=== PATIENT | male | born 1950 | race Caucasian/White ===

== ENCOUNTER 2023-02-16 09:10 | Outpatient (OUT) | payer MEDICARE, OTHER, SELFPAY ==
[2023-02-16 10:03] LABS: Basophils Percent Auto 0.4 % (0.2-2.0); Eosinophils Percent Auto 0.4 % (0.9-7.0); Hematocrit 43.5 % (42.0-54.0); Hemoglobin 13.9 g/dL (14.0-18.0); Immature Granulocytes Abs Auto 0.01 10^3/uL (0.00-0.03); Immature Granulocytes Pct Auto 0.2 % (0.0-0.5); Lymphocytes Absolute Auto 0.9 10^3/uL (1.2-3.8); Lymphocytes Percent Auto 20.4 % (20.5-60.0); Mean Corpuscular Hemoglobin 29.6 pg (25.9-34.0); Mean Corpuscular Volume 92.6 fL (80.0-94.0); Mean Platelet Volume 10.5 fL (9.5-13.5); Monocytes Absolute Auto 0.4 10^3/uL (0.3-0.8); Neutrophils Absolute Auto 3.2 10^3/uL (1.4-6.5); Neutrophils Percent Auto 70.6 % (43.0-75.0); Platelet Count 182 10^3/uL (150-450); White Blood Count 4.5 10^3/uL (4.0-11.0)
[2023-02-16 10:43] LABS: Anion Gap 11.6; Aspartate Amino Transferase 16 U/L (15-37); BUN Creatinine Ratio 22.4; Bilirubin Total 0.7 mg/dL (0.2-1.0); Calcium 8.7 mg/dL (8.5-10.1); Carbon Dioxide 28.7 mmol/L (21.0-32.0); Chloride 105 mmol/L (98-107); Estimated GFR (African America >60 (>=60); Estimated GFR (Non-African Ame >60 (>=60); Glucose 115 mg/dL (74-106); Potassium 4.3 mmol/L (3.5-5.1); Sodium 141 mmol/L (136-145)
[2023-02-16 10:44] LABS: Alanine Aminotransferase 18 U/L (16-63); Albumin Globulin Ratio 0.9; Albumin Level 3.5 g/dL (3.4-5.0); Alkaline Phosphatase 74 U/L (46-116); Chol HDL Ratio 2.8; Cholesterol 161 mg/dL (<=200); HDL Cholesterol 58 mg/dL (40-60); Total Protein 7.5 g/dL (6.4-8.2); Triglycerides 64 mg/dL (<=150); VLDL CHOLESTEROL 12.8 mg/dL
[2023-02-16 10:47] LABS: Prostate Specific Antigen Scrn 2.03 ng/mL (<=4.00)
== END 2023-02-16 09:11 | disposition home or self-care (01) ==
PROVIDERS: PCP Family Medicine; Visit Provider Family Medicine
DX: E78.00 Pure hypercholesterolemia, unspecified (principal); I10 Essential (primary) hypertension; Z12.5 Encounter for screening for malignant neoplasm of prostate
CPT/HCPCS: 36415; 80053; 80061; 85025; G0103

== ENCOUNTER 2023-03-24 13:52 | Outpatient (RCR) | payer MEDICARE, OTHER, SELFPAY | END 2023-06-13 13:24 | disposition home or self-care (01) | LOC: PT 13:52 | PROVIDERS: PCP Family Medicine; Visit Provider Family Medicine | DX: S49.92XD Unspecified injury of left shoulder and upper arm, subsequent encounter (principal) | CPT/HCPCS: 97010; 97110; 97140; 97162 ==

== ENCOUNTER 2023-03-24 15:15 | Outpatient (OUT) | payer MEDICARE, OTHER, SELFPAY ==
--- NOTE | 2023-03-24 15:21 | XR_ITS ---
The [address] [address] Patient Name: SERJIO AMARO MRN: [id number] date: 1950 Sex: M Assigned Patient Location: [facility] Current Patient Location: Accession/Order Number: [id number] Exam Date: 03/24/2023 15:27 Report Date: 03/25/2023 08:39 At the request of: DONN CORMIER Procedure: XR shoulder LT min 2V PROCEDURE: XR shoulder LT min 2V COMPARISON: None. HISTORY: Unspecified Injury Of Left Shoulder S49.92XA FINDINGS: BONES:Slight contour deformity of the medial humeral head with a focal area of sclerosis. I favor degenerative change however a fracture is not excluded. No dislocation. Degenerative spondylosis of the spine. SOFT TISSUES:Negative. No visible soft tissue swelling. EFFUSION:None visible. OTHER: Negative. XR/XR shoulder LT min 2V IMPRESSION: Findings likely representing degenerative changes although a humeral head fracture is not excluded Electronically authenticated by: ANGELIQUE CARABALLO Date: 03/25/2023 08:39
== END 2023-03-24 15:16 | disposition home or self-care (01) ==
LOC: RAD 15:16
PROVIDERS: PCP Family Medicine; Visit Provider Family Medicine
DX: S49.92XA Unspecified injury of left shoulder and upper arm, initial encounter (principal)
CPT/HCPCS: 73030

== ENCOUNTER 2023-04-10 09:50 | Outpatient (OUT) | payer MEDICARE, OTHER, SELFPAY ==
--- OUTSIDE RECORDS SUMMARY | 2023-04-10 09:54 | XMS_ITS | CCD ---
Author Name Unknown Address [id number] [place] [address] Organization [facility] Care Team Providers Care Supervisor Knitting Name Role Phone DEBBIE, SUMMON Unavailable Unavailable DEBBIE, SUMMON Unavailable Unavailable LIZ CORMIER Unavailable Unavailable LIZ CORMIER Unavailable Unavailable Felipe Hancock Attending Provider Liz Cormier Primary Care Provider Lula De La O Unavailable Liz Cormier Unavailable DR LIZ CORMIER Admitting Unavailable CORMIER, DR LIZ Doty Attending Unavailable CASA, DR LIZ Doty Primary Care Unavailable CORMIER, DR LIZ Doty Consulting Unavailable CORMIER, DR LIZ Doty Primary Care Unavailable CORMIER, DR LIZ Doty Primary Care Unavailable HOY ., DR ZIMMERMAN Admitting Unavailable HOY ., DR ZIMMERMAN Attending Unavailable HOY ., DR ZIMMERMAN Consulting Unavailable MARKER ., DR RAMACHANDRAN Consulting Unavailable GODWIN, ALFREDO Consulting Unavailable SISTER, TEJA Consulting Unavailable FAVIAN, DR CALDWELL Admitting Unavailable FAVIAN, DR CALDWELL Attending Unavailable CASA, DR LIZ Doty Primary Care Unavailable FAVIAN, DR CALDWELL Consulting Unavailable MISC, DR CUNNINGHAM Admitting Unavailable MISC, DR CUNNINGHAM Attending Unavailable CASA, DR LIZ Doty Primary Care Unavailable MARSHALLVILLE, DR ANGELIQUE Tabares Consulting Unavailable MISC, DR CUNNINGHAM Consulting Unavailable CASA, DR LIZ Doty Consulting Unavailable JORDON HERNANDEZ Attending Unavailable MADIE ZUNIGA Attending Unavailable MD Liz Cormier Primary Care Provider [phone] DO Francisco Javier Camacho Attending Provider [phone] Francisco Javier Camacho Unavailable Liz Cormier Primary Care Unavailable Francisco Javier Camacho Attending Unavailable Francisco Javier Camacho Admitting Unavailable Unavailable Unavailable Unavailable Allergies Allergy Classification Reported Allergen(s) Allergy Type Date of Onset Reaction(s) Facility (1 source) 28749,00; Translations: [57739,00] Propensity to adverse reactions (disorder) 9 [facility] Repository (6 sources) patient allergy list reviewed by nurse or physicia Propensity to adverse reactions 7 Comment:Done [facility] Other (6 sources) Allergies Reconciled Propensity to adverse reactions Unknown [facility] Other Medications Current Medications Medication Drug Class(es) Dates Sig (Normalized) Sig (Original) aspirin 81 mg delayed release oral tablet (14 sources) Platelet Aggregation Inhibitor, Nonsteroidal Anti-inflammatory Drug Start: 03-28-2020 take 81 mg by mouth twice daily Aspirin Active 81 MG PO Twice daily March 28, 2020 12:00am Start: 03-12-2020 take 81 mg by mouth once daily Aspirin Active 81 MG PO Daily March 12, 2020 12:14pm take 1 tablet by mouth once rahul y Aspirin 81 81 MG 1 tablet Orally Once a day Active take 1 tablet by mouth once rahul y Aspirin 81 81 MG 1 tablet Orally Once a day Active levoFLOXacin 750 mg oral tablet (2 sources) Quinolone Antimicrobial take 1 tablet by mouth every twenty-four hours levoFLOXacin 750 MG 1 tablet Orally Once a day Active lisinopril 10 mg oral tablet (13 sources) Angiotensin Converting Enzyme Inhibitor Start: 020 take 10 mg by mouth once daily Lisinopril Active 10 MG PO Daily March 12, 2020 12:14pm take 1 tablet by hannah th every twenty-four hours Lisinopril 20 MG 1 tablet Orally Once a day Active lovastatin 40 mg oral tablet (13 sources) HMG-CoA Reductase Inhibitor Start: 03-12-2020 take 40 mg by mouth once daily at bedtime Lovastatin Active 40 MG PO Daily at bedtime March 12, 2020 12:14pm take 2 tablets by mouth once evelio ly Lovastatin 40 MG 2 tab Oral Once a day Active 24 hr metoprolol succinate 25 mg extended release oral tablet (13 sources) beta-Adrenergic Kirk Start: 03-12-2020 take 12.5 mg by mouth twice daily Metoprolol Succinate Active 12.5 MG PO Twice daily March 12, 2020 12:14pm take 0.5 tablet by mouth twice d aily Metoprolol Tartrate 25 MG 1/2 tab Oral Twice a day Active Metoprolol Tartr ate 25 MG TAKE 1 2 (ONE HALF) TABLET BY MOUTH TWICE DAILY Oral for 90 Active nitroglycerin 0.4 mg sublingual tablet (3 sources) Nitrate Vasodilator Start: 03-12-2020 Nitroglyce rin Active 0.4 MG SUBLINGUAL Q5M March 12, 2020 12:14pm Problems Active Problems Problem Classification Problem Date Documented Da te Episodic/Chronic Acute and unspecified renal failure (2 sources) Acute kidney failure, unspecified; Translations: [ACUTE KIDNEY FAILURE UNSPECIFIED] Onset: 07-17-2022 Episodic Bacterial infection; unspecified site (2 sources) Unspecified Escherichia coli [E. coli] as the cause of diseases classified elsewhere; Translations: [UNS E COLI CAUSE DX CLASS ELSEWHERE] Onset: 07-17-2022 Episodic Cardiac dysrhythmias (6 sources) Cardiac arrhythmia; Translations: [Cardiac arrhythmia, unspecified] Onset: 09-04-2014 Chronic Coronary atherosclerosis and other heart disease (20 sources) Coronary arteriosclerosis; Translations: [Atherosclerotic heart disease of tanana coronary artery without angina pectoris] Onset: 06-21-2013 Chronic Deficiency and other anemia (1 source) Iron deficiency anemia, unspecified; Translations: [IRON DEFICIENCY ANEMIA UNSPECIFIED] Onset: 07-16-2022 Episodic Disorders of lipid metabolism (20 sources) Hypercholesterolemia ; Translations: [Pure hypercholesterolemia , unspecified] Onset: 06-27-2013 Resolved: 02-04-2021 Chronic Essential hypertension (20 sources) Essential hypertension; Translations: [Essential (primary) hypertension] Onset: 05-22-2014 Chronic Fracture of upper limb (1 source) Other displaced fracture of upper end of left humerus, initial encounter for closed fracture Episodic Hyperplasia of prostate (15 sources) Lower urinary tract symptoms due to benign prostatic hypertrophy; Translations: [Benign prostatic hyperplasia with lower urinary tract symptoms] Chronic Osteoarthritis (11 sources) Osteoarthritis of right hip joint; Translations: [Unilateral primary osteoarthritis, right hip] Onset: 03-05-2021 Resolved: 03-05-2021 Chronic Osteoporosis (1 source) Age-related osteoporosis without current pathological fracture; Translations: [AGE-RELATED OSTEOPOROSIS W/O CURRENT PATHOLOGICAL FRACTURE] Onset: 01-26-2017 Chronic Other aftercare (4 sources) Aftercare following joint replacement surgery; Translations: [AFTERCARE FOLLOWING JOINT REPLACEMENT SURGERY] Onset: 01-26-2017 Chronic Other aftercare (1 source) intermediate designer (current) use of aspirin; Translations: [LONG-TERM CURRENT USE OF ASPIRIN] Onset: 07-16-2022 Episodic Other aftercare (1 source) Other 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 (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; Translations: [OTH SUPERINTENDENT RECREATION CURRENT DRUG THERAPY] Onset: 07-16-2022 Episodic Other aftercare (6 sources) Long-term current use of drug therapy; Translations: [Other jail (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] Episodic Other and ill-defined heart disease (4 sources) Heart disease, unspecified; Translations: [HEART DISEASE UNSPECIFIED] Onset: 03-18-2022 Chronic Other connective tissue disease (2 sources) Presence of right artificial hip joint; Translations: [PRESENCE OF RIGHT ARTIFICIAL HIP JOINT] Onset: 01-26-2017 Resolved: 03-05-2021 Chronic Other connective tissue disease (10 sources) History of total replacement of right hip joint; Translations: [Presence of right artificial hip joint] Chronic Other connective tissue disease (1 source) History of total hip arthroplasty; Translations: [Presence of right artificial hip joint] 03-04-2023 Chronic Other injuries and conditions due to external causes (6 sources) History of fall; Translations: [History of falling] Episodic Other injuries and conditions due to external causes (1 source) Unspecified injury of left shoulder and upper arm, initial encounter Episodic Other non-traumatic joint disorders (2 sources) Derangement of left shoulder joint; Translations: [Other specific joint derangements of left shoulder, not elsewhere classified] Chronic Other non-traumatic joint disorders (1 source) Other specific joint derangements of left shoulder, not elsewhere classified Chronic Other non-traumatic joint disorders (6 sources) Pain in right hip joint; Translations: [Pain in right hip] Episodic Other non-traumatic joint disorders (1 source) Pain in left shoulder Episodic Other nutritional; endocrine; and metabolic disorders (6 sources) Obesity; Translations: [Obesity, unspecified] Chronic Other nutritional; endocrine; and metabolic disorders (12 sources) Body mass index 30+ - obesity; Translations: [Body mass index 31.0-31.9, adult] Onset: 01-10-2018 Chronic Other nutritional; endocrine; and metabolic disorders (6 sources) Severe obesity; Translations: [Morbid (severe) obesity due to excess calories] Chronic Residual codes; unclassified (6 sources) Immunization refused ; Translations: [Immunization not carried out because of patient refusal] Episodic Septicemia (except in labor) (4 sources) Sepsis, unspecified organism; Translations: [Sepsis due to Escherichia coli [E. coli]] Onset: 06-27-2022 Episodic Sprains and strains (1 source) Strain of muscle(s) and tendon(s) of the rotator cuff of left shoulder, initial encounter Episodic Unclassified (2 sources) Unknown / UNK(Unknown) Onset: 01-26-2017 Unclassified (1 source) CONTACT W/AND (SUSP) EXPOS COVID-19; Translations: [CONTACT W/AND (SUSP) EXPOS COVID-19] Onset: 07-16-2022 Unclassified (1 source) Pain in left shoulder; Translations: [Pain in left shoulder] Onset: 04-06-2023 Urinary tract infections (12 sources) Tubulo-interstitial nephritis, not specified as acute or chronic; Translations: [Acute pyelonephritis] Onset: 07-11-2022 Episodic Past or Other Problems Problem Classification Problem Date Documented Da te Episodic/Chronic Deficiency and other anemia (6 sources) Anemia; Translations: [Anemia, unspecified] Resolved: 08-05-2021 Episodic Genitourinary symptoms and ill-defined conditions (6 sources) Disorder of the urinary system; Translations: [Personal history of other disorder of urinary system] Onset: 08-23-2015 Episodic Immunizations and screening for infectious disease (6 sources) Vaccination given; Translations: [Encounter for immunization] Onset: 01-06-2017 Episodic Other circulatory disease (6 sources) Elevated blood-pressure reading without diagnosis of hypertension; Translations: [Elevated blood-pressure reading, without diagnosis of hypertension] Onset: 05-22-2014 Episodic Other connective tissue disease (6 sources) Impingement syndrome of shoulder region; Translations: [Impingement syndrome of right shoulder] Onset: 09-04-2014 Resolved: 02-04-2021 Episodic Other eye disorders (6 sources) Retained foreign body of eyelid; Translations: [Retained foreign body of eyelid] Onset: 01-30-2015 Episodic Other fractures (1 source) Displaced fracture of shaft of right clavicle, subsequent encounter for fracture with routine healing; Translations: [DISP FX OF SHAFT OF RIGHT CLAVICLE, SUBS FOR FX W ROUTN HEAL] Onset: 01-26-2017 Episodic Other lower respiratory disease (1 source) Other forms of dyspnea; Translations: [OTHER FORMS OF DYSPNEA] Onset: 03-21-2022 Episodic Other non-traumatic joint disorders (6 sources) Arthralgia of the pelvic region and thigh; Translations: [Pain in joint, pelvic region and thigh] Onset: 09-04-2014 Episodic Other screening for suspected conditions (not mental disorders or infectious disease) (1 source) Encounter for screening for malignant neoplasm of prostate; Translations: [ENC SCREEN MALIG NEOPLASM PROSTATE] Onset: 02-17-2022 Episodic Other upper respiratory infections (6 sources) Acute sinusitis; Translations: [Acute sinusitis, unspecified] Onset: 11-08-2014 Episodic Residual codes; unclassified (6 sources) Edema; Translations: [Edema] Onset: 02-19-2016 Episodic Results Test Name Value Interpretation Reference Range Facility XR shoulder LT min 2V*on XR shoulder LT min 2V* [facility] [place] [address] [place] [address] XRay Report Signed Patient: Bonifacio Amaro MR#: [id number] : 1950 Acct:[id number] Age/Sex: 72 / M ADM Date: 04/06/23 Loc: [facility] Room: Type: [facility] Attending Dr: Francisco Javier Camacho DO Copies to: Francisco Javier Camacho DO Ordering Provider: Francisco Javier Camacho DO Date of Service: 04/06/23 XR/XR shoulder LT min 2V*: Acute pain of left shoulder 4 views LEFT shoulder plain film HISTORY: LEFT shoulder pain for one week. Fell. COMPARISON: 03/24/23 ACUTE FINDINGS: At there is a developing regions of sclerosis involving the greater tuberosity. Findings may represent the old fracture which is healed. Minor glenohumeral degenerative changes present. There appears be a well-corticated intra-articular body versus spurring in the region of the posterior portion of the humeral head and neck. This measures approximately 2.3 cm. This appears to be present with prior examination. DEGENERATIVE CHANGE: Similar mild degeneration of the acromioclavicular joint. SOFT TISSUE FINDINGS: Unremarkable JOINT EFFUSION: None POSTOP CHANGES: None BONY MINERALIZATION: Adequate XR/XR shoulder LT min 2V* IMPRESSION: No acute fracture. Sclerosis within the region of the greater tuberosity. Findings may correspond with bony contusion/fracture with interval healing. Similar acromioclavicular degenerative changes. Impression dictated by: Baljit Zavala M.D.04/06/2023 2:15 PM Dictation Location: [place] [address] Transcribed By: [facility] 04/06/23 1415 Dictated By: Baljit Zavala DO 04/06/23 1405 Signed By: 04/06/23 1415 Normal [facility] Office Visiton 03-30-2023 Follow-up visit [id number] Mendez Amaro in E 1950 M Date Provider Department Center 03/30/2023 MADIE GLORIA [facility] Family History Problem Relation Age of Onset Heart attack Father Family Status - Relation Status Age at Father Level of Service:26871 MT OFFICE/OUTPATIENT ESTABLISHED LOW MDM 20 MIN Normal [facility] CBC AUTO DIFFon 07-11-2022 BASO # 0.0 103/ul Normal 0.0-0.1 [facility] Comment on above: Performed By: #### R SPLUS #### [facility] [address] [place] [address] Dr. Tomasz Patel Basophils/100 WBC (Bld) 0.6 % Normal 0.2-2.0 [facility] Comment on above: Performed By: #### R SPLUS #### [facility] [address] [place] [address] [address] Tomasz Patel EO # 0.0 103/ul Normal 0.0-0.7 [facility] Comment on above: Performed By: #### R SPLUS #### [facility] [address] [address] [address] Tomasz Patel Eosinophils/100 WBC (Bld) 0.6 % Critically low 0.9-7.0 [facility] Comment on above: Performed By: #### R SPLUS #### [facility] [address] [place] [address] Dr. Tomasz Patel Erythrocyte distribution width (RBC) [Ratio] 13.6 % Normal 11.0-15.0 [facility] Comment on above: Performed By: #### R SPLUS #### [facility] [address] [place] [address] Dr. Tomasz Patel Hematocrit (Bld) [Volume fraction] 44.5 % Normal 42.0-54.0 [facility] Comment on above: Performed By: #### R SPLUS #### [facility] [address] [place] [address] Dr. Tomasz Patel Hemoglobin (Bld) [Mass/Vol] 14.7 g/dL Normal 14.0-18.0 [facility] Comment on above: Performed By: #### R SPLUS #### [facility] [address] [place] [address] Dr. Tomasz Patel IG # 0.03 10e3/ul Normal 0.00-0.03 [facility] Comment on above: Performed By: #### R SPLUS #### [facility] [address] [place] [address] Dr. Tomasz Patel IG % 0.6 % Critically high 0.0-0.5 [facility] Comment on above: Performed By: #### R SPLUS #### [facility] [address] [place] [address] Dr. Tomasz Patel LYMPH # 1.1 103/ul Critically low 1.2-3.8 [facility] Comment on above: Performed By: #### R SPLUS #### [facility] [address] [place] [address] Dr. Tomasz Patel Lymphocytes/100 WBC (Bld) 21.1 % Normal 20.5-60.0 [facility] Comment on above: Performed By: #### R SPLUS #### [facility] [address] [place] [address] Dr. Tomasz Patel MANUAL DIFF REQ NO Normal [facility] Comment on above: Performed By: #### R SPLUS #### [facility] [address] [place] [address] Dr. Tomasz Patel MCH (RBC) [Entitic mass] 28.7 pg Normal 25.9-34.0 [facility] Comment on above: Performed By: #### R SPLUS #### [facility] [address] [place] [address] Dr. Tomasz Patel MCHC (RBC) [Mass/Vol] 33.0 g/dL Normal 29.9-35.2 [facility] Comment on above: Performed By: #### R SPLUS #### [facility] [address] [place] [address] Dr. Tomasz Patel MCV (RBC) [Entitic vol] 86.7 fL Normal 80.0-94.0 [facility] Comment on above: Performed By: #### R SPLUS #### [facility] [address] [place] [address] Dr. Tomasz Patel MONO # 0.5 103/ul Normal 0.3-0.8 [facility] Comment on above: Performed By: #### R SPLUS #### [facility] [address] [place] [address] Dr. Tomasz Patel Monocytes/100 WBC (Bld) 10.5 % Normal 1.7-12.0 [facility] Comment on above: Performed By: #### R SPLUS #### [facility] [address] [place] [address] Dr. Tomasz Patel NEUT # 3.4 103/ul Normal 1.4-6.5 [facility] Comment on above: Performed By: #### R SPLUS #### [facility] [address] [place] [address] Dr. Tomasz Patel Neutrophils/100 WBC (Bld) 66.6 % Normal 43.0-75.0 [facility] Comment on above: Performed By: #### R SPLUS #### [facility] [address] [place] [address] Dr. Tomasz Patel Platelet mean volume (Bld) [Entitic vol] 10.4 fL Normal 9.5-13.5 [facility] Comment on above: Performed By: #### R SPLUS #### [facility] [address] [place] [address] Dr. Tomasz Patel PLT 174 103/ul Normal 150-450 [facility] Comment on above: Performed By: #### R SPLUS #### [facility] [address] [place] [address] Dr. Tomasz Patel RBC 5.13 106/ul Normal 4.70-6.10 [facility] Comment on above: Performed By: #### R SPLUS #### [facility] [address] [place] [address] Dr. Tomasz Patel WBC 5.1 103/ul Normal 4.0-11.0 [facility] Comment on above: Performed By: #### R SPLUS #### [facility] [address] [place] [address] Dr. Tomasz Patel CULTURE URINEon 07-11-2022 CULTURE URINE Culture Observations : NO GROWTH. Normal [facility] Comment on above: Performed By: #### C MP, BNP, HSTROPN #### [facility] [address] [place] [address] Dr. Tomasz Patel PROF CHEM 8 (BAS METB)on Anion gap [Moles/Vol] 12.8 mmol/L Normal [facility] Comment on above: Performed By: #### B MP #### [facility] [address] [place] [address] Dr. Tomasz Patel Calcium [Mass/Vol] 8.9 mg/dL Normal 8.5-10.1 [facility] Comment on above: Performed By: #### B MP #### [facility] [address] [place] [address] Dr. Tomasz Patel Chloride [Moles/Vol] 104 mmol/L Normal 98-107 [facility] Comment on above: Performed By: #### B MP #### [facility] [address] [place] [address] Dr. Tomasz Patel CO2 [Moles/Vol] 23.6 mmol/L Normal 21.0-32.0 [facility] Comment on above: Performed By: #### B MP #### [facility] [address] [place] [address] Dr. Tomasz Patel Creatinine [Mass/Vol] 0.95 mg/dL Normal 0.70-1.30 [facility] Comment on above: Performed By: #### B MP #### [facility] [address] [place] [address] [address] Tomasz Patel EGFR-AF ICELANDIC >60 Normal >=60 [facility] Comment on above: Performed By: #### B MP #### [facility] [address] [address] [address] Tomasz Patel EGFR-NON AF ICELANDIC >60 Normal >=60 [facility] Comment on above: Performed By: #### B MP #### [facility] [address] [address] [address] Tomasz Patel Glucose [Mass/Vol] 146 mg/dL Critically high 74-106 [facility] Comment on above: Performed By: #### B MP #### [facility] [address] [place] [address] Dr. Tomasz Patel Potassium [Moles/Vol] 4.4 mmol/L Normal 3.5-5.1 [facility] Comment on above: Performed By: #### B MP #### [facility] [address] [address] [address] Tomasz Patel Sodium [Moles/Vol] 136 mmol/L Normal 136-145 [facility] Comment on above: Performed By: #### B MP #### [facility] [address] [address] [address] Tomasz Patel Urea nitrogen [Mass/Vol] 24.0 mg/dL Critically high 7.0-18.0 [facility] Comment on above: Performed By: #### B MP #### [facility] [address] [address] [address] Tomasz Patel Urea nitrogen/Creatinine [Mass ratio] 25.3 mg/mg Normal [facility] Comment on above: Performed By: #### B MP #### [facility] [id number] Tomasz Patel CULTURE URINEon 06-29-2022 CULTURE URINE Isolate 1 Escherichia coli >100,000 cfu/mL of ORGANISM 1 Escherichia coli ANTIBIOTIC M.I.C RX STATUS Ampicillin <=2 S F Ampicillin/Sulbactam <=2 S F Piperacillin/Tazobacta m <=4 S F Cefazolin <=4 S F Ceftazidime <=1 S F Ceftriaxone <=1 S F Ertapenem <=0.5 S F Imipenem <=0.25 S F Amikacin <=2 S F Gentamicin <=1 S F Tobramycin <=1 S F Ciprofloxacin <=0.25 S F Levofloxacin <=0.12 S F Nitrofurantoin <=16 S F Trimethoprim/Sulfameth oxazole <=20 S F Normal [facility] Comment on above: Performed By: #### C MP, BNP, HSTROPN #### [facility] [address] [place] [address] Dr. Tomasz Patel CBC W MANUAL DIFFon 06-29-19 23 ATYPICAL LYMPH # 0.12 103/ul Normal [facility] Comment on above: Performed By: #### C EMERITA #### [facility] [address] [place] [address] Dr. Tomasz Patel ATYPICAL LYMPH % 3 % Normal [facility] Comment on above: Performed By: #### C EMERITA #### [facility] [address] [place] [address] Dr. Tomasz Patel BAND # 0.0 103/ul Normal 0.0-0.3 [facility] Comment on above: Performed By: #### C EMERITA #### [facility] [address] [place] [address] Dr. Tomasz Patel BAND % 0 % Normal 0-5 [facility] Comment on above: Performed By: #### C EMERITA #### [facility] [address] [place] [address] Dr. Tomasz Patel BASOM # 0.04 103/ul Normal 0.00-0.10 [facility] Comment on above: Performed By: #### C EMERITA #### [facility] [address] [place] [address] Dr. Tomasz Patel BASOM % 1.0 % Normal 0.2-2.0 [facility] Comment on above: Performed By: #### C BCJUAN RAMON #### [facility] [address] [address] [address] Tomasz Patel BLAST # Normal [facility] Comment on above: Performed By: #### C EMERITA #### [facility] [address] [address] [address] Tomasz Patel BLAST % Normal [facility] Comment on above: Performed By: #### C EMERITA #### [facility] [address] [address] [address] Tomasz Patel CORRECTED WBC Normal 4.0-11.0 [facility] Comment on above: Performed By: #### C EMERITA #### [facility] [address] [place] [address] Dr. Tomasz Patel EOS # 0.04 103/ul Normal 0.00-0.70 [facility] Comment on above: Performed By: #### C EMERITA #### [facility] [address] [place] [address] Dr. Tomasz Patel EOS% 1.0 % Normal 0.9-7.0 [facility] Comment on above: Performed By: #### C EMERITA #### [facility] [address] [place] [address] Dr. Tomasz Patel HCT 38.5 % Critically low 42.0-54.0 [facility] Comment on above: Performed By: #### C EMERITA #### [facility] [address] [place] [address] Dr. Tomasz Patel HGB 12.7 g/dl Critically low 14.0-18.0 [facility] Comment on above: Performed By: #### C BCJUAN RAMON #### [facility] [address] [address] [address] Tomasz Patel LYMPHM # 0.40 103/ul Critically low 1.20-3.80 [facility] Comment on above: Performed By: #### C EMERITA #### [facility] [address] [place] [address] Dr. Tomasz Patel LYMPHM% 10.0 % Critically low 20.5-60.0 [facility] Comment on above: Performed By: #### C EMERITA #### [facility] [address] [place] [address] Dr. Tomasz Patel MCH 29.3 pg Normal 25.9-34.0 [facility] Comment on above: Performed By: #### C EMERITA #### [facility] [address] [place] [address] Dr. Tomasz Patel MCHC 33.0 g/dl Normal 29.9-35.2 [facility] Comment on above: Performed By: #### C EMERITA #### [facility] [address] [place] [address] Dr. Tomasz Patel MCV 88.7 fL Normal 80.0-94.0 [facility] Comment on above: Performed By: #### C EMERITA #### [facility] [address] [place] [address] Dr. Tomasz Patel METAMYELOCYTE # Normal [facility] Comment on above: Performed By: #### C EMERITA #### [facility] [address] [place] [address] Dr. Tomasz Patel METAMYELOCYTE % Normal [facility] Comment on above: Performed By: #### C EMERITA #### [facility] [address] [place] [address] Dr. Tomasz Patel MONOM# 0.20 103/ul Critically low 0.30-0.80 [facility] Comment on above: Performed By: #### C EMERITA #### [facility] [address] [place] [address] Dr. Tomasz Patel MONOM% 5.0 % Normal 1.7-12.0 [facility] Comment on above: Performed By: #### C EMERITA #### [facility] [address] [place] [address] Dr. Tomasz Patel MPV 10.8 fL Normal 9.5-13.5 [facility] Comment on above: Performed By: #### C EMERITA #### [facility] [address] [place] [address] Dr. Tomasz Patel MYELOCYTE # Normal [facility] Comment on above: Performed By: #### C EMERITA #### [facility] [address] [address] [address] Tomasz Patel MYELOCYTE % Normal [facility] Comment on above: Performed By: #### C EMERITA #### [facility] [address] [address] [address] Tomasz Patel NRBC Normal [facility] Comment on above: Performed By: #### C EMERITA #### [facility] [address] [address] [address] Tomasz Patel PLT 113 103/ul Critically low 150-450 [facility] [place] [facility] Comment on above: Performed By: #### C EMERITA #### [facility] [address] [place] [address] Dr. Tomasz Patel RBC 4.34 106/ul Critically low 4.70-6.10 [facility] Comment on above: Performed By: #### C EMERITA #### [facility] [address] [place] [address] Dr. Tomasz Patel RDW 13.7 % Normal 11.0-15.0 [facility] Comment on above: Performed By: #### C EMERITA #### [facility] [address] [place] [address] Dr. Tomasz Patel SEG # 3.20 103/ul Normal 1.40-6.50 [facility] Comment on above: Performed By: #### C EMERITA #### [facility] [address] [place] [address] Dr. Tomasz Patel SEG % 80.0 % Critically high 43.0-75.0 [facility] Comment on above: Performed By: #### C EMERITA #### [facility] [address] [place] [address] Dr. Tomasz Patel WBC 4.0 103/ul Normal 4.0-11.0 [facility] Comment on above: Performed By: #### C EMERITA #### [facility] [address] [place] [address] Dr. Tomasz Patel PROF 14(COMP METB)on 023 Albumin [Mass/Vol] 2.7 g/dL Critically low 3.4-5.0 [facility] Comment on above: Performed By: #### C MP #### [facility] [address] [place] [address] Dr. Tomasz Patel Albumin/Globulin [Mass ratio] 0.8 {ratio} Normal [facility] Comment on above: Performed By: #### C MP #### [facility] [address] [place] [address] Dr. Tomasz Patel ALP [Catalytic activity/Vol] 50 U/L Normal 46-116 [facility] Comment on above: Performed By: #### C MP #### [facility] [address] [place] [address] Dr. Tomasz Patel ALT [Catalytic activity/Vol] 21 U/L Normal 16-63 [facility] Comment on above: Performed By: #### C MP #### [facility] [address] [place] [address] Dr. Tomasz Patel Anion gap [Moles/Vol] 12.9 mmol/L Normal [facility] Comment on above: Performed By: #### C MP #### [facility] [address] [place] [address] Dr. Tomasz Patel AST [Catalytic activity/Vol] 20 U/L Normal 15-37 [facility] Comment on above: Performed By: #### C MP #### [facility] [address] [place] [address] Dr. Tomasz Patel Bilirubin [Mass/Vol] 0.6 mg/dL Normal 0.2-1.0 [facility] Comment on above: Performed By: #### C MP #### [facility] [address] [place] [address] Dr. Tomasz Patel Calcium [Mass/Vol] 8.4 mg/dL Critically low 8.5-10.1 [facility] Comment on above: Performed By: #### C MP #### [facility] [address] [place] [address] Dr. Tomasz Patel Chloride [Moles/Vol] 107 mmol/L Normal 98-107 [facility] Comment on above: Performed By: #### C MP #### [facility] [address] [address] [address] Tomasz Patel CO2 [Moles/Vol] 23.1 mmol/L Normal 21.0-32.0 [facility] Comment on above: Performed By: #### C MP #### [facility] [address] [address] [address] Tomasz Patel Creatinine [Mass/Vol] 0.92 mg/dL Normal 0.70-1.30 [facility] Comment on above: Performed By: #### C MP #### [facility] [address] [place] [address] Dr. Tomasz Patel EGFR-AF ICELANDIC >60 Normal >=60 [facility] Comment on above: Performed By: #### C MP #### [facility] [address] [place] [address] Dr. Tomasz Patel EGFR-NON AF ICELANDIC >60 Normal >=60 [facility] Comment on above: Performed By: #### C MP #### [facility] [address] [address] [address] Tomasz Patel Globulin (S) [Mass/Vol] 3.6 g/dL Normal [facility] Comment on above: Performed By: #### C MP #### [facility] [address] [place] [address] Dr. Tomasz Patel Glucose [Mass/Vol] 124 mg/dL Critically high 74-106 [facility] Comment on above: Performed By: #### C MP #### [facility] [address] [place] [address] Dr. Tomasz Patel Potassium [Moles/Vol] 4.0 mmol/L Normal 3.5-5.1 [facility] Comment on above: Performed By: #### C MP #### [facility] [address] [address] [address] Tomasz Patel Protein [Mass/Vol] 6.3 g/dL Critically low 6.4-8.2 [facility] Comment on above: Performed By: #### C MP #### [facility] [address] [place] [address] Dr. Tomasz Patel Sodium [Moles/Vol] 139 mmol/L Normal 136-145 [facility] Comment on above: Performed By: #### C MP #### [facility] [address] [place] [address] Dr. Tomasz Patel Urea nitrogen [Mass/Vol] 16.0 mg/dL Normal 7.0-18.0 [facility] Comment on above: Performed By: #### C MP #### [facility] [address] [place] [address] Dr. Tomasz Patel Urea nitrogen/Creatinine [Mass ratio] 17.4 mg/mg Normal [facility] Comment on above: Performed By: #### C MP #### [facility] [address] [place] [address] Dr. Tomasz Patel CBC AUTO DIFFon 06-27-2022 BASO # 0.0 103/ul Normal 0.0-0.1 [facility] Comment on above: Performed By: #### C BC #### [facility] [address] [place] [address] Dr. Tomasz Patel Basophils/100 WBC (Bld) 0.3 % Normal 0.2-2.0 [facility] Comment on above: Performed By: #### C BC #### [facility] [address] [place] [address] Dr. Tomasz Patel EO # 0.0 103/ul Normal 0.0-0.7 [facility] Comment on above: Performed By: #### C BC #### [facility] [address] [place] [address] Dr. Tomasz Patel Eosinophils/100 WBC (Bld) 0.4 % Critically low 0.9-7.0 [facility] Comment on above: Performed By: #### C BC #### [facility] [address] [place] [address] Dr. Tomasz Patel Erythrocyte distribution width (RBC) [Ratio] 13.9 % Normal 11.0-15.0 [facility] Comment on above: Performed By: #### C BC #### [facility] [address] [place] [address] Dr. Tomasz Patel Hematocrit (Bld) [Volume fraction] 39.5 % Critically low 42.0-54.0 [facility] Comment on above: Performed By: #### C BC #### [facility] [address] [place] [address] Dr. Tomasz Patel Hemoglobin (Bld) [Mass/Vol] 13.1 g/dL Critically low 14.0-18.0 [facility] Comment on above: Performed By: #### C BC #### [facility] [address] [place] [address] Dr. Tomasz Patel IG # 0.01 10e3/ul Normal 0.00-0.03 [facility] Comment on above: Performed By: #### C BC #### [facility] [address] [place] [address] Dr. Tomasz Patel IG % 0.1 % Normal 0.0-0.5 [facility] Comment on above: Performed By: #### C BC #### [facility] [address] [place] [address] Dr. Tomasz Patel LYMPH # 0.5 103/ul Critically low 1.2-3.8 [facility] [place] [facility] Comment on above: Performed By: #### C BC #### [facility] [address] [place] [address] Dr. Tomasz Patel Lymphocytes/100 WBC (Bld) 6.6 % Critically low 20.5-60.0 [facility] Comment on above: Performed By: #### C BC #### [facility] [address] [place] [address] Dr. Tomasz Patel MANUAL DIFF REQ NO Normal [facility] Comment on above: Performed By: #### C BC #### [facility] [address] [place] [address] Dr. Tomasz Patel MCH (RBC) [Entitic mass] 29.2 pg Normal 25.9-34.0 [facility] Comment on above: Performed By: #### C BC #### [facility] [address] [address] [address] Tomasz Patel MCHC (RBC) [Mass/Vol] 33.2 g/dL Normal 29.9-35.2 [facility] Comment on above: Performed By: #### C BC #### [facility] [address] [address] [address] Tomasz Patel MCV (RBC) [Entitic vol] 88.0 fL Normal 80.0-94.0 [facility] Comment on above: Performed By: #### C BC #### [facility] [address] [address] [address] Tomasz Patel MONO # 0.6 103/ul Normal 0.3-0.8 [facility] Comment on above: Performed By: #### C BC #### [facility] [address] [place] [address] Dr. Tomasz Patel Monocytes/100 WBC (Bld) 8.4 % Normal 1.7-12.0 [facility] Comment on above: Performed By: #### C BC #### [facility] [address] [place] [address] Dr. Tomasz Patel NEUT # 5.7 103/ul Normal 1.4-6.5 [facility] Comment on above: Performed By: #### C BC #### [facility] [address] [place] [address] Dr. Tomasz Patel Neutrophils/100 WBC (Bld) 84.2 % Critically high 43.0-75.0 [facility] Comment on above: Performed By: #### C BC #### [facility] [address] [place] [address] Dr. Tomasz Patel Platelet mean volume (Bld) [Entitic vol] 10.4 fL Normal 9.5-13.5 [facility] Comment on above: Performed By: #### C BC #### [facility] [address] [place] [address] Dr. Tomasz Patel PLT 127 103/ul Critically low 150-450 [facility] Comment on above: Performed By: #### C BC #### [facility] [address] [place], [place] [address] Dr. Tomasz Patel RBC 4.49 106/ul Critically low 4.70-6.10 [facility] Comment on above: Performed By: #### C BC #### [facility] [address] [place], [place] [address] Dr. Tomasz Patel WBC 6.8 103/ul Normal 4.0-11.0 [facility] Comment on above: Performed By: #### C BC #### [facility] [address] [place], [place] [address] ABD/PELVIS WO CONon 06-27 CT ABD/PELVIS WO CON EXAM: CT SCAN OF TH E ABDOMEN AND PELVIS WITHOUT IV CONTRAST DATE OF EXAM: 06/26/2022 11:19 PM EDT HISTORY: UNSPECIFIED ABDOMINAL PAIN in a 72-year-old male COMPARISON: None. TECHNIQUE: CT examination of the abdomen and pelvis with sagittal and coronal reformations was performed without intravenous contrast. CT dose lowering techniques were used, to include: automated exposure control, adjustment for patient size, and/or use of iterative reconstruction. CONTRAST: None. Note: The exam is limited because some types of pathology may not be adequately demonstrated due to lack of contrast enhancement. FINDINGS: Lower Chest: Bibasilar atelectasis. Free Air: None. Liver: The liver is enlarged with fatty infiltration. Gallbladder: Normal Common Bile Duct: Normal Pancreas: Normal Spleen: Normal Adrenal Glands: Normal Kidneys: Right Kidney: Partially duplicated. Right Ureter: Portions of the right ureter which are visualized measure within normal. Left Kidney: Normal. Left Ureter: Portions of the left ureter which are visualized measure within normal limits. GI Tract: Stomach: Normal Small Bowel: Normal Appendix: Normal on coronal image 46 Large Bowel: Normal on axial image 87 of series 3 Mesentery/Peritoneum: Subcentimeter lymph nodes in the mesentery. 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 Musculoskeletal: Osseous structures demonstrate flowing syndesmophytes with some sclerosis involving the posterior vertebral body at L4. 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 Free Fluid: None. IMPRESSION: 1. Hepatomegaly with hepatic steatosis. Please correlate with patient's LFTs. 2. Normal appendix. 3. Sclerotic foci in the posterior vertebral body at L4. Please correlate with patient's medical history. Bone scan may help better delineate if clinically indicated. 4. 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 Electronically authenticated by: ALFREDO GODWIN Date: 2022-06-27 00:44 Normal [facility] CULTURE BLOODon 06-27-2022 Microscopic examination of blood, culture Culture Observations: NO GROWTH AT 5 DAYS. Normal [facility] Comment on above: Performed By: #### C MP, BNP, HSTROPN #### [facility] [address] [place] [address] Dr. Tomasz Patel ER URINE PROFILEon 3 Bilirubin Ql (U) Negative Normal NEGATIVE [facility] Comment on above: Performed By: #### C MP, BNP, HSTROPN #### [facility] [address] [place] [address] Dr. Tomasz Patel Clarity (U) CLEAR Normal CLEAR [facility] Comment on above: Performed By: #### C MP, BNP, HSTROPN #### [facility] [address] [place] [address] Dr. Tomasz Patel Color (U) YELLOW Normal YELLOW [facility] Comment on above: Performed By: #### C MP, BNP, HSTROPN #### [facility] [address] [place] [address] Dr. Tomasz Patel ERUGagandeep A micrscopic examination will be performed if indicated. Normal [facility] Comment on above: Performed By: #### C MP, BNP, HSTROPN #### [facility] [address] [place] [address] Dr. Tomasz Patel Glucose Ql (U) Negative Normal NEGATIVE [facility] Comment on above: Performed By: #### C MP, BNP, HSTROPN #### [facility] [address] [place] [address] Dr. Tomasz Patel Hemoglobin Ql (U) MODERATE Abnormal NEGATIVE [facility] Comment on above: Performed By: #### C MP, BNP, HSTROPN #### [facility] [address] [address] [address] Tomasz Patel Ketones Ql (U) Negative Normal NEGATIVE [facility] [place] [facility] Comment on above: Performed By: #### C MP, BNP, HSTROPN #### [facility] [address] [address] [address] Tomasz Patel LEUKOCYTES TRACE Abnormal NEGATIVE [facility] Comment on above: Performed By: #### C MP, BNP, HSTROPN #### [facility] [address] [address] [address] Tomasz Patel Nitrite Ql (U) Positive Abnormal NEGATIVE [facility] Comment on above: Performed By: #### C MP, BNP, HSTROPN #### [facility] [address] [place] [address] Dr. Tomasz Patel pH (U) 6.0 [pH] Normal 5-9 [facility] Comment on above: Performed By: #### C MP, BNP, HSTROPN #### [facility] [address] [place] [address] Dr. Tomasz Patel Protein (U) [Mass/Vol] 30 mg/dL Abnormal NEGATIVE/ TRACE [facility] Comment on above: Performed By: #### C MP, BNP, HSTROPN #### [facility] [address] [place] [address] Dr. Tomasz Patel SPEC GRAVITY 1.025 Normal 1.005-<=1.025 [facility] Comment on above: Performed By: #### C MP, BNP, HSTROPN #### [facility] [address] [place] [address] Dr. Tomasz Patel UR MICRO IND INDICATED Normal [facility] Comment on above: Performed By: #### C MP, BNP, HSTROPN #### [facility] [address] [place] [address] Dr. Tomasz Patel Urobilinogen Qn (U) 1.0 {Juan'U}/dL Normal 0.2 - 1. 0 [facility] Comment on above: Performed By: #### C MP, BNP, HSTROPN #### [facility] [address] [place] [address] Dr. Tomasz Patel LACTATE/LACTIC ACIDon 2022 Lactate [Moles/Vol] 0.9 mmol/L Normal 0.4-2.0 [facility] Comment on above: Performed By: #### C MP, BNP, HSTROPN #### [facility] [address] [place] [address] Dr. Tomasz Patel Lactate [Moles/Vol] 1.2 mmol/L Normal 0.4-2.0 [facility] Comment on above: Performed By: #### C MP, BNP, HSTROPN #### [facility] [address] [place] [address] Dr. Tomasz Patel Lactate [Moles/Vol] 1.2 mmol/L Normal 0.4-2.0 [facility] Comment on above: Performed By: #### C MP, BNP, HSTROPN #### [facility] [address] [place] [address] Dr. Tomasz Patel MAGNESIUMon 06-27-2022 Magnesium [Mass/Vol] 1.6 mg/dL Critically low 1.8-2.4 [facility] Comment on above: Performed By: #### C MP, BNP, HSTROPN #### [facility] [address] [place] [address] Dr. Tomasz Patel PROF 14(COMP METB)on 023 Albumin [Mass/Vol] 2.7 g/dL Critically low 3.4-5.0 [facility] Comment on above: Performed By: #### C MP #### [facility] [address] [place] [address] Dr. Tomasz Patel Albumin/Globulin [Mass ratio] 0.8 {ratio} Normal [facility] Comment on above: Performed By: #### C MP #### [facility] [address] [place] [address] Dr. Tomasz Patel ALP [Catalytic activity/Vol] 54 U/L Normal 46-116 [facility] Comment on above: Performed By: #### C MP #### [facility] [address] [address] [address] Tomasz Patel ALT [Catalytic activity/Vol] 28 U/L Normal 16-63 [facility] Comment on above: Performed By: #### C MP #### [facility] [address] [address] [address] Tomasz Patel Anion gap [Moles/Vol] 8.4 mmol/L Normal [facility] Comment on above: Performed By: #### C MP #### [facility] [address] [address] [address] Tomasz Patel AST [Catalytic activity/Vol] 19 U/L Normal 15-37 [facility] Comment on above: Performed By: #### C MP #### [facility] [address] [address] [address] Tomasz Patel Bilirubin [Mass/Vol] 1.0 mg/dL Normal 0.2-1.0 [facility] Comment on above: Performed By: #### C MP #### [facility] [address] [address] [address] Tomasz Patel Calcium [Mass/Vol] 8.1 mg/dL Critically low 8.5-10.1 [facility] Comment on above: Performed By: #### C MP #### [facility] [address] [address] [address] Tomasz Patel Chloride [Moles/Vol] 107 mmol/L Normal 98-107 [facility] Comment on above: Performed By: #### C MP #### [facility] [address] [address] [address] Tomasz Patel CO2 [Moles/Vol] 26.5 mmol/L Normal 21.0-32.0 [facility] Comment on above: Performed By: #### C MP #### [facility] [address] [address] [address] Tomasz Patel Creatinine [Mass/Vol] 1.19 mg/dL Normal 0.70-1.30 [facility] Comment on above: Performed By: #### C MP #### [facility] [address] [address] [address] Tomasz Patel EGFR-AF ICELANDIC >60 Normal >=60 [facility] Comment on above: Performed By: #### C MP #### [facility] [address] [address] [address] Tomasz Patel EGFR-NON AF ICELANDIC 60 mL/min/1.73m2 Normal >=60 [facility] Comment on above: Performed By: #### C MP #### [facility] [address] [address] [address] Tomasz Patel Globulin (S) [Mass/Vol] 3.6 g/dL Normal [facility] Comment on above: Performed By: #### C MP #### [facility] [address] [address] [address] Tomasz Patel Glucose [Mass/Vol] 121 mg/dL Critically high 74-106 [facility] Comment on above: Performed By: #### C MP #### [facility] [address] [address] [address] Tomasz Patel Potassium [Moles/Vol] 3.9 mmol/L Normal 3.5-5.1 [facility] Comment on above: Performed By: #### C MP #### [facility] [address] [address] [address] Tomasz Patel Protein [Mass/Vol] 6.3 g/dL Critically low 6.4-8.2 [facility] Comment on above: Performed By: #### C MP #### [facility] [address] [address] [address] Tomasz Patel Sodium [Moles/Vol] 138 mmol/L Normal 136-145 [facility] Comment on above: Performed By: #### C MP #### [facility] [address] [address] [address] Tomasz Patel Urea nitrogen [Mass/Vol] 21.0 mg/dL Critically high 7.0-18.0 [facility] Comment on above: Performed By: #### C MP #### [facility] [address] [place] [address] Dr. Tomasz Patel Urea nitrogen/Creatinine [Mass ratio] 17.6 mg/mg Normal [facility] Comment on above: Performed By: #### C MP #### [facility] [address] [place] [address] Dr. Tomasz Patel URINE MICROSCOPIC ONLYon BACTERIA LARGE Abnormal NONE SEEN [facility] Comment on above: Performed By: #### R SPLUS #### [facility] [address] [place] [address] Dr. Tomasz Patel Bacteria identified Cx Nom (U) INDICATED Normal [facility] Comment on above: Performed By: #### R SPLUS #### [facility] [address] [place] [address] Dr. Tomasz Patel CAST NONE SEEN Normal NONE SEEN [facility] Comment on above: Performed By: #### R SPLUS #### [facility] [address] [place] [address] Dr. Tomasz Patel Crystals LM Nom (Urine sed) NONE SEEN Normal NONE SEEN [facility] Comment on above: Performed By: #### R SPLUS #### [facility] [address] [place] [address] Dr. Tomasz Patel Epithelial cells LM Ql (Urine sed) NONE SEEN Normal NONE SEEN /RARE [facility] Comment on above: Performed By: #### R SPLUS #### [facility] [address] [place] [address] Dr. Tomasz Patel MUCOUS NONE SEEN Normal NONE SEEN [facility] Comment on above: Performed By: #### R SPLUS #### [facility] [address] [place] [address] Dr. Tomasz Patel RBC 10-20 Abnormal 0-2 [facility] Comment on above: Performed By: #### R SPLUS #### [facility] [address] [place] [address] Dr. Tomasz Patel WBC 20-50 Abnormal NONE SEEN [facility] Comment on above: Performed By: #### R SPLUS #### [facility] [address] [place] [address] Dr. Tomasz Patel XR CHEST 1 Von 06-27-2022 XR CHEST 1 V CHEST X-RAY HISTORY: Chest pain COMPARISON: None. TECHNIQUE: 1 view chest is submitted for review. FINDINGS: The lungs are adequately expanded without evidence for acute infiltrate or effusion. The cardiac silhouette is enlarged. Pulmonary vascularity is mildly prominent Osseous structures are within expected limits for patients age. . IMPRESSION: Cardiomegaly with mild prominence of pulmonary vascularity. Electronically authenticated by: ALFREDO GODWIN Date: 2022-06-26 23:22 Normal [facility] BNPon 06-26-2022 Natriuretic peptide B (Bld) [Mass/Vol] 283.0 pg/mL Normal <=900.0 [facility] Comment on above: Performed By: #### C MP, BNP, HSTROPN #### [facility] [address] [address] [address] Tomasz Patel CBC AUTO DIFFon 06-26-2022 BASO # 0.0 103/ul Normal 0.0-0.1 [facility] Comment on above: Performed By: #### C MP, BNP, HSTROPN #### [facility] [address] [address] [address] Tomasz Patel Basophils/100 WBC (Bld) 0.5 % Normal 0.2-2.0 [facility] Comment on above: Performed By: #### C MP, BNP, HSTROPN #### [facility] [address] [address] Dr. Tomasz Patel EO # 0.0 103/ul Normal 0.0-0.7 [facility] Comment on above: Performed By: #### C MP, BNP, HSTROPN #### [facility] [address] [address] [address] Tomasz Patel Eosinophils/100 WBC (Bld) 0.5 % Critically low 0.9-7.0 [facility] Comment on above: Performed By: #### C MP, BNP, HSTROPN #### [facility] [address] [address] [address] Tomasz Patel Erythrocyte distribution width (RBC) [Ratio] 13.6 % Normal 11.0-15.0 [facility] Comment on above: Performed By: #### C MP, BNP, HSTROPN #### [facility] [address] [place] [address] Dr. Tomasz Patel Hematocrit (Bld) [Volume fraction] 45.8 % Normal 42.0-54.0 [facility] Comment on above: Performed By: #### C MP, BNP, HSTROPN #### [facility] [address] [place] [address] Dr. Tomasz Patel Hemoglobin (Bld) [Mass/Vol] 15.2 g/dL Normal 14.0-18.0 [facility] Comment on above: Performed By: #### C MP, BNP, HSTROPN #### [facility] [address] [place] [address] Dr. Tomasz Patel IG # 0.01 10e3/ul Normal 0.00-0.03 [facility] Comment on above: Performed By: #### C MP, BNP, HSTROPN #### [facility] [address] [place] [address] Dr. Tomasz Patel IG % 0.3 % Normal 0.0-0.5 [facility] Comment on above: Performed By: #### C MP, BNP, HSTROPN #### [facility] [address] [place] [address] Dr. Tomasz Patel LYMPH # 0.4 103/ul Critically low 1.2-3.8 [facility] Comment on above: Performed By: #### C MP, BNP, HSTROPN #### [facility] [address] [place] [address] Dr. Tomasz Patel Lymphocytes/100 WBC (Bld) 10.5 % Critically low 20.5-60.0 [facility] Comment on above: Performed By: #### C MP, BNP, HSTROPN #### [facility] [address] [place] [address] Dr. Tomasz Patel MANUAL DIFF REQ NO Normal [facility] Comment on above: Performed By: #### C MP, BNP, HSTROPN #### [facility] [address] [place] [address] Dr. Tomasz Patel MCH (RBC) [Entitic mass] 29.1 pg Normal 25.9-34.0 [facility] Comment on above: Performed By: #### C MP, BNP, HSTROPN #### [facility] [address] [place] [address] Dr. Tomasz Patel MCHC (RBC) [Mass/Vol] 33.2 g/dL Normal 29.9-35.2 [facility] Comment on above: Performed By: #### C MP, BNP, HSTROPN #### [facility] [address] [place] [address] Dr. Tomasz Patel MCV (RBC) [Entitic vol] 87.7 fL Normal 80.0-94.0 [facility] Comment on above: Performed By: #### C MP, BNP, HSTROPN #### [facility] [address] [place] [address] Dr. Tomasz Patel MONO # 0.1 103/ul Critically low 0.3-0.8 [facility] Comment on above: Performed By: #### C MP, BNP, HSTROPN #### [facility] [address] [place] [address] Dr. Tomasz Patel Monocytes/100 WBC (Bld) 2.3 % Normal 1.7-12.0 [facility] Comment on above: Performed By: #### C MP, BNP, HSTROPN #### [facility] [address] [place] [address] Dr. Tomasz Patel NEUT # 3.4 103/ul Normal 1.4-6.5 [facility] Comment on above: Performed By: #### C MP, BNP, HSTROPN #### [facility] [address] [place] [address] Dr. Tomasz Patel Neutrophils/100 WBC (Bld) 85.9 % Critically high 43.0-75.0 [facility] Comment on above: Performed By: #### C MP, BNP, HSTROPN #### [facility] [address] [place] [address] Dr. Tomasz Patel Platelet mean volume (Bld) [Entitic vol] 10.6 fL Normal 9.5-13.5 [facility] Comment on above: Performed By: #### C MP, BNP, HSTROPN #### [facility] [address] [place] [address] Dr. Tomasz Patel PLT 138 103/ul Critically low 150-450 [facility] Comment on above: Performed By: #### C MP, BNP, HSTROPN #### [facility] [address] [place] [address] Dr. Tomasz Patel RBC 5.22 106/ul Normal 4.70-6.10 [facility] Comment on above: Performed By: #### C MP, BNP, HSTROPN #### [facility] [address] [place] [address] Dr. Tomasz Patel WBC 3.9 103/ul Critically low 4.0-11.0 [facility] Comment on above: Performed By: #### C MP, BNP, HSTROPN #### [facility] [address] [place] [address] Dr. Tomasz Patel CULTURE BLOODon 06-26-2022 Microscopic examination of blood, culture Culture Observations: NO GROWTH AT 5 DAYS. Normal [facility] Comment on above: Performed By: #### C MP, BNP, HSTROPN #### [facility] [address] [place] [address] Dr. Tomasz Patel LACTATE/LACTIC ACIDon 2022 Lactate [Moles/Vol] 5.4 mmol/L Critically high 0.4-2.0 [facility] Comment on above: Performed By: #### C MP, BNP, HSTROPN #### [facility] [address] [place] [address] Dr. Tomasz Patel PROF 14(COMP METB)on 023 Albumin [Mass/Vol] 3.5 g/dL Normal 3.4-5.0 [facility] Comment on above: Performed By: #### C MP, BNP, HSTROPN #### [facility] [address] [address] [address] Tomasz Patel Albumin/Globulin [Mass ratio] 0.8 {ratio} Normal [facility] Comment on above: Performed By: #### C MP, BNP, HSTROPN #### [facility] [address] [place] [address] Dr. Tomasz Patel ALP [Catalytic activity/Vol] 73 U/L Normal 46-116 [facility] Comment on above: Performed By: #### C MP, BNP, HSTROPN #### [facility] [address] [place] [address] Dr. Tomasz Patel ALT [Catalytic activity/Vol] 28 U/L Normal 16-63 [facility] Comment on above: Performed By: #### C MP, BNP, HSTROPN #### [facility] [address] [place] [address] Dr. Tomasz Patel Anion gap [Moles/Vol] 15.2 mmol/L Normal [facility] Comment on above: Performed By: #### C MP, BNP, HSTROPN #### [facility] [address] [place] [address] Dr. Tomasz Patel AST [Catalytic activity/Vol] 18 U/L Normal 15-37 [facility] Comment on above: Performed By: #### C MP, BNP, HSTROPN #### [facility] [address] [place] [address] Dr. Tomasz Patel Bilirubin [Mass/Vol] 1.1 mg/dL Critically high 0.2-1.0 [facility] Comment on above: Performed By: #### C MP, BNP, HSTROPN #### [facility] [address] [place] [address] Dr. Tomasz Patel Calcium [Mass/Vol] 9.1 mg/dL Normal 8.5-10.1 [facility] Comment on above: Performed By: #### C MP, BNP, HSTROPN #### [facility] [address] [place] [address] Dr. Tomasz Patel Chloride [Moles/Vol] 102 mmol/L Normal 98-107 [facility] Comment on above: Performed By: #### C MP, BNP, HSTROPN #### [facility] [address] [address] [address] Tomasz Patel CO2 [Moles/Vol] 23.7 mmol/L Normal 21.0-32.0 [facility] Comment on above: Performed By: #### C MP, BNP, HSTROPN #### [facility] [address] [address] [address] Tomasz Patel Creatinine [Mass/Vol] 1.43 mg/dL Critically high 0.70-1.30 [facility] Comment on above: Performed By: #### C MP, BNP, HSTROPN #### [facility] [address] [place] [address] Dr. Tomasz Patel EGFR-AF ICELANDIC 59 mL/min/1.73m2 Critically low >=60 [facility] Comment on above: Performed By: #### C MP, BNP, HSTROPN #### [facility] [address] [address] [address] Tomasz Patel EGFR-NON AF ICELANDIC 49 mL/min/1.73m2 Critically low >=60 [facility] Comment on above: Performed By: #### C MP, BNP, HSTROPN #### [facility] [address] [place] [address] Dr. Tomasz Patel Globulin (S) [Mass/Vol] 4.3 g/dL Normal [facility] Comment on above: Performed By: #### C MP, BNP, HSTROPN #### [facility] [address] [address] [address] Tomasz Patel Glucose [Mass/Vol] 141 mg/dL Critically high 74-106 [facility] Comment on above: Performed By: #### C MP, BNP, HSTROPN #### [facility] [address] [place] [address] Dr. Tomasz Patel Potassium [Moles/Vol] 3.9 mmol/L Normal 3.5-5.1 [facility] Comment on above: Performed By: #### C MP, BNP, HSTROPN #### [facility] [address] [place] [address] Dr. Tomasz Patel Protein [Mass/Vol] 7.8 g/dL Normal 6.4-8.2 [facility] Comment on above: Performed By: #### C MP, BNP, HSTROPN #### [facility] [address] [place] [address] Dr. Tomasz Patel Sodium [Moles/Vol] 137 mmol/L Normal 136-145 [facility] Comment on above: Performed By: #### C MP, BNP, HSTROPN #### [facility] [address] [place] [address] Dr. Tomasz aPtel Urea nitrogen [Mass/Vol] 22.0 mg/dL Critically high 7.0-18.0 [facility] Comment on above: Performed By: #### C MP, BNP, HSTROPN #### [facility] [address] [place] [address] Dr. Tomasz Patel Urea nitrogen/Creatinine [Mass ratio] 15.4 mg/mg Normal [facility] Comment on above: Performed By: #### C MP, BNP, HSTROPN #### [facility] [address] [place] [address] Dr. Tomasz Patel RESPIRATORY PANEL PLUSon Adenovirus Not detected Normal NOT DETECTED [facility] Comment on above: Performed By: #### R SPLUS #### [facility] [address] [place] [address] Dr. Tomasz Matthews. Parapertusis Not detected Normal NOT DETECTED [facility] Comment on above: Performed By: #### R SPLUS #### [facility] [address] [place] [address] Dr. Tomasz Matthews. Pertussis Not detected Normal NOT DETECTED [facility] Comment on above: Performed By: #### R SPLUS #### [facility] [address] [place] [address] Dr. Tomasz Patel Chlamydia Pneumoniae Not detected Normal NOT DETECTED [facility] Comment on above: Performed By: #### R SPLUS #### [facility] [address] [place] [address] Dr. Tomasz Patel Coronavirus 229E Not detected Normal NOT DETECTED [facility] Comment on above: Performed By: #### R SPLUS #### [facility] [address] [place] [address] Dr. Tomasz Patel Coronavirus HKU1 Not detected Normal NOT DETECTED [facility] Comment on above: Performed By: #### R SPLUS #### [facility] [address] [place] [address] Dr. Tomasz Patel Coronavirus NL63 Not detected Normal NOT DETECTED [facility] Comment on above: Performed By: #### R SPLUS #### [facility] [address] [place] [address] Dr. Tomasz Patel Coronavirus OC43 Not detected Normal NOT DETECTED [facility] Comment on above: Performed By: #### R SPLUS #### [facility] [address] [place] [address] Dr. Tomasz Patel Influenza A H1 Not detected Normal NOT DETECTED [facility] Comment on above: Performed By: #### R SPLUS #### [facility] [address] [place] [address] Dr. Tomasz Patel Influenza A H1 2009 Not detected Normal NOT DETECTED [facility] Comment on above: Performed By: #### R SPLUS #### [facility] [address] [place] [address] Dr. Tomasz Patel Influenza A H3 Not detected Normal NOT DETECTED [facility] Comment on above: Performed By: #### R SPLUS #### [facility] [address] [place] [address] Dr. Tomasz Patel Influenza B Not detected Normal NOT DETECTED [facility] Comment on above: Performed By: #### R SPLUS #### [facility] [address] [place] [address] Dr. Tomasz Patel Metapneumovirus Not detected Normal NOT DETECTED [facility] Comment on above: Performed By: #### R SPLUS #### [facility] [address] [place] [address] Dr. Tomasz Patel Mycoplas. Pneumoniae Not detected Normal NOT DETECTED [facility] Comment on above: Performed By: #### R SPLUS #### [facility] [address] [place] [address] Dr. Tomasz Patel Parainfluenza 1 Not detected Normal NOT DETECTED [facility] Comment on above: Performed By: #### R SPLUS #### [facility] [address] [place] [address] Dr. Tomasz Patel Parainfluenza 2 Not detected Normal NOT DETECTED [facility] Comment on above: Performed By: #### R SPLUS #### [facility] [address] [place] [address] Dr. Tomasz Patel Parainfluenza 3 Not detected Normal NOT DETECTED [facility] Comment on above: Performed By: #### R SPLUS #### [facility] [address] [place] [address] Dr. Tomasz Patel Parainfluenza 4 Not detected Normal NOT DETECTED [facility] Comment on above: Performed By: #### R SPLUS #### [facility] [address] [place] [address] Dr. Tomasz Patel Rhino/Enterovirus Not detected Normal NOT DETECTED [facility] Comment on above: Performed By: #### R SPLUS #### [facility] [address] [place] [address] Dr. Tomasz PEPPER Header 1 RESPIRATORY PANEL: VIRUSES Normal [facility] Comment on above: Performed By: #### R SPLUS #### [facility] [address] [place] [address] Dr. Tomasz PEPPER Header 2 RESPIRATORY PANEL: BACTERIA Normal [facility] Comment on above: Performed By: #### R SPLUS #### [facility] [address] [place] [address] Dr. Tomasz Patel RSV Not detected Normal NOT DETECTED [facility] Comment on above: Performed By: #### R SPLUS #### [facility] [address] [place], [place] [id number] Dr. Tomasz Patel SARS-CoV-2 (COVID-19) RNA DARNELL+probe Ql (Unsp spec) Not detected Normal NOT DETECTED [facility] Comment on above: Performed By: #### R SPLUS #### [facility] [address] [place] [address] Dr. Tomasz Patel TROPONIN, HIGH SENSITIVITYon 06-26-2022 HSTROP 10.5 pg/mL Normal 4.0-76.1 [facility] Comment on above: Result Comment: CUT- OFF POINTS HAVE BEEN ESTABLISHED BASED ON THE FOURTH UNIVERSAL DEFINITIONS OF MYOCARDIAL INFARCTION. THE UPPER REFERENCE LIMIT (URL) OF TROPONIN, DEFINED THE 99TH PERCENTILE OF cTnI DISTRIBUTION IN A REFERENCE POPULATION, HAS BEEN CONFIRMED THE DECISION THRESHOLD FOR CA DIAGNOSIS. Performed By: #### C MP, BNP, HSTROPN #### [facility] [address] [place] [address] Dr. Tomasz Patel Telemedicineon 04-16-2022 Telemedicine [id number] Dejah Amarov in E 1950 M Date Provider Department Center 04/16/2022 [facility] [place] [facility] Family History Problem Relation Age of Onset Heart attack Father Family Status - Relation Status Age at Father Level of Service:62475 MT OFFICE/OUTPATIENT EST PT MAY NOT REQ PHYS/QHP Normal [facility] ECHOCARDIO M/2D COMPLETEon 1 05-19-2021 ECHOCARDIO M/2D COMPLETE Patient: BONIFACIO AMARO Exam Date: 03/18/2022 : 1950 Gender:M Ordering : DR LIZ CORMIER M.D. Admission #: [id number] Family : DR JORDON HERNANDEZ M.D. Order #: [id number] CLICK HERE TO VIEW EXAM ECHOCARDIOGRAM REPORT PROCEDURE: CARDIO PULMONARY ECHOCARDIO M/2D COMP INDICATIONS: Right ventricular hypertrophy by electrocardiogram, dyspnea on exertion, PTCA COMPARISON: None. DESCRIPTION: COMPLETE ECHOCARDIOGRAM Real-time transthoracic echocardiography with 2D, M-mode, spectral and color flow Doppler performed. QUALITY: Technically difficult due to patient's condition. 72 238# BP 156/88 LEFT VENTRICLE: Normal chamber size. Borderline left ventricular hypertrophy. LV EF: Normal left ventricular ejection fraction, (>55%). DIASTOLIC: Normal diastolic function. ATRIAL SEPTUM: Visually appears intact. LEFT ATRIUM: Mild dilatation. RIGHT ATRIUM: Normal chamber size. RIGHT VENTRICLE: Normal chamber size. Normal systolic function. TRICUSPID VALVE: Normal mobility and thickness. No stenosis with trivial regurgitation. Doppler studies reveal mildly (35-45) elevated right sided pressures. RVSP 41 mmHg MITRAL VALVE: Normal mobility and thickness. No evidence of mitral valve stenosis. There is no mitral annular calcification. Trivial mitral regurgitation. AORTIC VALVE: Normal trileaflet appearance. No visible sclerosis. Normal leaflet mobility. No evidence of aortic valve stenosis. Trivial aortic regurgitation. AORTIC ROOT: Normal diameter and appearance. PULMONIC VALVE: Normal thickness and mobility. No stenosis. No regurgitation. PERICARDIUM: Anterior free space; trivial effusion versus fat pad. IVC: Collapses with inspirations. CONCLUSION: Global left ventricular systolic function is normal; visually estimated ejection fraction is 55 to 60%. No significant wall motion abnormalities. The left atrium is mildly dilated. Normal diastolic function. The right ventricle is normal in size and systolic function. No significant valvular abnormalities. Mildly elevated right-sided pressures. Dictated by: Jordon Hernandez M.D. on 03/25/2022 at 09:07 Approved by: Jordon Hernandez M.D. on 03/25/2022 at 09:10 Normal [facility] NM STRESS/REST MULTIon 03-18 DE STRESS/REST MULTI Patient: BONIFACIO AMARO Exam Date: 03/18/2022 : 1950 Gender:M Ordering : XIMENA CROFT Admission #: [id number] Family : DR LIZ CORMIER M.D. Order #: [id number] CLICK HERE TO VIEW EXAM RADIOLOGY REPORT PROCEDURE: RADIONUCLIDE IMAGING STRESS/REST MULTI COMPARISON: None. INDICATIONS: Atherosclerosis of coronary artery without angina pectoris TECHNIQUE: Exam Description: Stress/Rest one day protocol gated SPECT Rest Imagin.3 mCi Tc-99m Cardiolite IV on 03/18/2022 Stress Imaging 30.4 mCi Tc-99m Cardiolite IV on 03/18/2022 Exercise Protocol: 0.4 mg Lexiscan given IV Heart Rate (bpm): Rest: 56 Max: 74 PMHR: 49 Blood Pressure: Rest: 120/88 Max: 132/80 Symptoms: Rest and peak stress ECG findings were normal and the exercise portion of the study was normal per attending physician Dr. Mckeon . For more details please see separate cardiac stress test report. FINDINGS: QUALITY OF STUDY: Good. PERFUSION DEFECT: LOCATION: Basal inferior. Mid-anterior. Mid-inferior. Apical inferior. SIZE: Medium (3-4 segments). SEVERITY: Moderate. TYPE: Persistent. WALL MOTION: Normal. LV SIZE: Normal. 97 mL. TID / TCD: None; 1.0 LVEF: Normal. Calculated EF 63%. SUMMARY: Myocardial perfusion imaging study has ABNORMAL findings. CONCLUSION: 1. Moderate to large fixed defect inferior wall, RCA distribution 2. Small fixed defect anterior wall, LAD distribution possibly breast attenuation 3. No reversible ischemia 4. Normal exercise test Dictated by: Angelique Pugh MD on 03/20/2022 at 11:41 Approved by: Angelique Pugh MD on 03/20/2022 at 11:43 Normal [facility] CBC AUTO DIFFon 02-11-2022 BASO # 0.0 103/ul Normal 0.0-0.1 [facility] Comment on above: Performed By: #### C MP, BNP, HSTROPN #### [facility] [address] [place] [address] Dr. Tomasz Patel Basophils/100 WBC (Bld) 0.6 % Normal 0.2-2.0 [facility] Comment on above: Performed By: #### C MP, BNP, HSTROPN #### [facility] [address] [place] [address] Dr. Tomasz Patel EO # 0.0 103/ul Normal 0.0-0.7 [facility] Comment on above: Performed By: #### C MP, BNP, HSTROPN #### [facility] [address] [place] [address] Dr. Tomasz Patel Eosinophils/100 WBC (Bld) 0.6 % Critically low 0.9-7.0 [facility] Comment on above: Performed By: #### C MP, BNP, HSTROPN #### [facility] [address] [place] [address] Dr. Tomasz Patel Erythrocyte distribution width (RBC) [Ratio] 13.2 % Normal 11.0-15.0 [facility] Comment on above: Performed By: #### C MP, BNP, HSTROPN #### [facility] [address] [address] [address] Tomasz Patel Hematocrit (Bld) [Volume fraction] 45.0 % Normal 42.0-54.0 [facility] Comment on above: Performed By: #### C MP, BNP, HSTROPN #### [facility] [address] [place] [address] Dr. Tomasz Patel Hemoglobin (Bld) [Mass/Vol] 14.8 g/dL Normal 14.0-18.0 [facility] Comment on above: Performed By: #### C MP, BNP, HSTROPN #### [facility] [address] [place] [address] Dr. Tomasz Patel IG # 0.01 10e3/ul Normal 0.00-0.03 [facility] Comment on above: Performed By: #### C MP, BNP, HSTROPN #### [facility] [address] [place] [address] Dr. Tomasz Patel IG % 0.2 % Normal 0.0-0.5 [facility] Comment on above: Performed By: #### C MP, BNP, HSTROPN #### [facility] [address] [place] [address] Dr. Tomasz Patel LYMPH # 1.1 103/ul Critically low 1.2-3.8 [facility] Comment on above: Performed By: #### C MP, BNP, HSTROPN #### [facility] [address] [place] [address] Dr. Tomasz Patel Lymphocytes/100 WBC (Bld) 20.4 % Critically low 20.5-60.0 [facility] Comment on above: Performed By: #### C MP, BNP, HSTROPN #### [facility] [address] [place] [address] Dr. Tomasz Patel MANUAL DIFF REQ NO Normal [facility] Comment on above: Performed By: #### C MP, BNP, HSTROPN #### [facility] [address] [place] [address] Dr. Tomasz Patel MCH (RBC) [Entitic mass] 29.0 pg Normal 25.9-34.0 [facility] Comment on above: Performed By: #### C MP, BNP, HSTROPN #### [facility] [address] [place] [address] Dr. Tomasz Patel MCHC (RBC) [Mass/Vol] 32.9 g/dL Normal 29.9-35.2 [facility] Comment on above: Performed By: #### C MP, BNP, HSTROPN #### [facility] [address] [place] [address] Dr. Tomasz Patel MCV (RBC) [Entitic vol] 88.1 fL Normal 80.0-94.0 [facility] Comment on above: Performed By: #### C MP, BNP, HSTROPN #### [facility] [address] [place] [address] Dr. Tomasz Patel MONO # 0.5 103/ul Normal 0.3-0.8 [facility] Comment on above: Performed By: #### C MP, BNP, HSTROPN #### [facility] [address] [place] [address] Dr. Tomasz Patel Monocytes/100 WBC (Bld) 8.8 % Normal 1.7-12.0 [facility] Comment on above: Performed By: #### C MP, BNP, HSTROPN #### [facility] [address] [place] [address] Dr. Tomasz Patel NEUT # 3.6 103/ul Normal 1.4-6.5 [facility] Comment on above: Performed By: #### C MP, BNP, HSTROPN #### [facility] [address] [place] [address] Dr. Tomasz Patel Neutrophils/100 WBC (Bld) 69.4 % Normal 43.0-75.0 [facility] Comment on above: Performed By: #### C MP, BNP, HSTROPN #### [facility] [address] [place] [address] Dr. Tomasz Patel Platelet mean volume (Bld) [Entitic vol] 10.0 fL Normal 9.5-13.5 [facility] Comment on above: Performed By: #### C MP, BNP, HSTROPN #### [facility] [address] [address] [address] Tomasz Patel PLT 189 103/ul Normal 150-450 [facility] Comment on above: Performed By: #### C MP, BNP, HSTROPN #### [facility] [address] [place] [address] Dr. Tomasz Patel RBC 5.11 106/ul Normal 4.70-6.10 [facility] Comment on above: Performed By: #### C MP, BNP, HSTROPN #### [facility] [address] [place] [address] Dr. Tomasz Patel WBC 5.1 103/ul Normal 4.0-11.0 [facility] Comment on above: Performed By: #### C MP, BNP, HSTROPN #### [facility] [address] [place] [address] Dr. Tomasz Patel LIPID PROFILEon 02-11-2022 CHOL-HDL RATIO NORM SEE BELOW Normal [facility] Comment on above: Result Comment: 3.3 - 4.4 LOW RISK 4.4 - 7.1 AVERAGE RISK 7.1 - 11.0 MODERATE RISK >11.0 HIGH RISK Performed By: #### C MP, BNP, HSTROPN #### [facility] [address] [place] [address] Dr. Tomasz Patel Cholesterol [Mass/Vol] 162 mg/dL Normal <=200 [facility] Comment on above: Performed By: #### C MP, BNP, HSTROPN #### [facility] [address] [place] [address] Dr. Tomasz Patel Cholesterol in HDL [Mass/Vol] 55 mg/dL Normal 40-60 [facility] Comment on above: Performed By: #### C MP, BNP, HSTROPN #### [facility] [address] [address] [address] Tomasz Patel Cholesterol in LDL [Mass/Vol] 89.6 mg/dL Normal [facility] Comment on above: Performed By: #### C MP, BNP, HSTROPN #### [facility] [address] [address] [address] Tomasz Patel Cholesterol.total/Ch olesterol in HDL [Mass ratio] 2.9 {ratio} Normal [facility] Comment on above: Performed By: #### C MP, BNP, HSTROPN #### [facility] Laboratory [address] [address] [address] Tomasz Patel HDL NORMAL > or = 60 mg/dl - LO W CARDIOVASCULAR RISK <40 mg/dl - HIGH CARDIOVASCULAR RISK Normal [facility] Comment on above: Performed By: #### C MP, BNP, HSTROPN #### [facility] [address] [address] [address] Tomasz Patel LDL CALC NORMAL SEE BELOW Normal [facility] Comment on above: Result Comment: <100 mg/dl OPTIMAL 100 - 129 mg/dl NEAR OR ABOVE OPTIMAL 130 - 159 mg/dl BORDERLINE HIGH 160 - 189 mg/dl HIGH >190 mg/dl VERY HIGH Performed By: #### C MP, BNP, HSTROPN #### [facility] [address] [address] [address] Tomasz Patel Triglyceride [Mass/Vol] 87 mg/dL Normal <=150 [facility] Comment on above: Performed By: #### C MP, BNP, HSTROPN #### [facility] [address] [address] [address] Tomasz Patel VLDL CALC 17.4 mg/dL Normal [facility] Comment on above: Performed By: #### C MP, BNP, HSTROPN #### [facility] [address] [address] [address] Tomasz Patel PROF CHEM 8 (BAS METB)on Anion gap [Moles/Vol] 13.0 mmol/L Normal [facility] Comment on above: Performed By: #### C MP, BNP, HSTROPN #### [facility] [address] [address] [address] Tomasz Patel Calcium [Mass/Vol] 9.2 mg/dL Normal 8.5-10.1 [facility] Comment on above: Performed By: #### C MP, BNP, HSTROPN #### [facility] [address] [address] [address] Tomasz Patel Chloride [Moles/Vol] 103 mmol/L Normal 98-107 [facility] Comment on above: Performed By: #### C MP, BNP, HSTROPN #### [facility] [address] [place] [address] Dr. Tomasz Patel CO2 [Moles/Vol] 27.2 mmol/L Normal 21.0-32.0 [facility] Comment on above: Performed By: #### C MP, BNP, HSTROPN #### [facility] [address] [place] [address] Dr. Tomasz Patel Creatinine [Mass/Vol] 1.13 mg/dL Normal 0.70-1.30 [facility] Comment on above: Performed By: #### C MP, BNP, HSTROPN #### [facility] [address] [place] [address] Dr. Tomasz Patel EGFR-AF ICELANDIC >60 Normal >=60 [facility] Comment on above: Performed By: #### C MP, BNP, HSTROPN #### [facility] [address] [place] [address] Dr. Tomasz Patel EGFR-NON AF ICELANDIC >60 Normal >=60 [facility] Comment on above: Performed By: #### C MP, BNP, HSTROPN #### [facility] [address] [place] [address] Dr. Tomasz Patel Glucose [Mass/Vol] 124 mg/dL Critically high 74-106 T [facility] Comment on above: Performed By: #### C MP, BNP, HSTROPN #### [facility] [address] [place] [address] Dr. Tomasz Patel Potassium [Moles/Vol] 4.2 mmol/L Normal 3.5-5.1 [facility] Comment on above: Performed By: #### C MP, BNP, HSTROPN #### [facility] [address] [place] [address] Dr. Tomasz Patel Sodium [Moles/Vol] 139 mmol/L Normal 136-145 [facility] Comment on above: Performed By: #### C MP, BNP, HSTROPN #### [facility] [address] [place] [address] Dr. Tomasz Patel Urea nitrogen [Mass/Vol] 24.0 mg/dL Critically high 7.0-18.0 [facility] Comment on above: Performed By: #### C MP, BNP, HSTROPN #### [facility] [address] [place] [address] Dr. Tomasz Patel Urea nitrogen/Creatinine [Mass ratio] 21.2 mg/mg Normal [facility] Comment on above: Performed By: #### C MP, BNP, HSTROPN #### [facility] [address] [place] [address] Dr. Tomasz Patel SGPTon 02-11-2022 ALT [Catalytic activity/Vol] 21 U/L Normal 16-63 [facility] Comment on above: Performed By: #### C MP, BNP, HSTROPN #### [facility] [address] [place] [address] Dr. Tomasz Patel COVID-19 Positive/Negativeon 03-26-2020 COVID-19 Positive/Negative Negative Negative [facility] Comment on above: Testing for SARS-CoV -2 by RT-PCRThis test was developed and its performance characteristics determined by [employer] ([employer]) and validated at the [facility]. This test has not been FDA cleared or approved. This test has been authorized by FDA under an Emergency Use Authorization (EUA). This test has been validated in accordance with the FDA's Guidance Document (Policy for Diagnostics Testing in Laboratories Certified to Perform High Complexity Testing under CLIA prior to Emergency Use Authorization for Coronavirus Disease-2019 during the Public Health Emergency) issued on June 23, 2019. This test is only authorized for the duration of time the declaration that circumstances exist justifying the authorization of the emergency use of in vitro diagnostic tests for detection of SARS-CoV-2 virus and/or diagnosis of COVID-19 infection under section 564(b)(1) of the Act, 21 U.S.C. 360bbb-3(b)(1), unless the authorization is terminated or revoked sooner. Otheron 03-26-2020 Coronavirus 2019 PCR Interp N/A [facility] Automated basophil %on 03-12 Basophils/100 WBC (Bld) 0.4 % [facility] Automated basophil counton 1 05-13-2019 Basophils (Bld) [#/Vol] 0.0 10*3/uL 0.0-0.2 [facility] Automated blood lymphocyte c ount (number/volume)on 03-12-2020 Lymphocytes (Bld) [#/Vol] 1.0 10*3/uL 1.00-4.8 [facility] Automated blood lymphocyte c ount as percentage of total leukocyteson 03-12-2020 Lymphocytes/100 WBC (Bld) 16.5 % [facility] Automated blood monocyte cou nton 03-12-2020 Monocytes (Bld) [#/Vol] 0.5 10*3/uL 0.0-0.8 [facility] Automated blood platelet cou nt (count/volume)on 03-12-2020 Platelets (Bld) [#/Vol] 197 10*3/uL 150-450 [facility] Automated blood platelet rose marie n volume measurementon 03-12-2020 Platelet mean volume (Bld) [Entitic vol] 9.1 fL 6.6-10.1 [facility] Automated eosinophil %on Eosinophils/100 WBC (Bld) 0.3 % [facility] Automated eosinophil counton 03-12-2020 Eosinophils (Bld) [#/Vol] 0.0 10*3/uL 0.0-0.45 [facility] Automated erythrocyte distri bution width ratioon 03-12-2020 Erythrocyte distribution width (RBC) [Ratio] 14.4 % 12.0-14.8 [facility] Automated erythrocyte mean c orpuscular hemoglobin (mass per erythrocyte)on 03-12-2020 MCH (RBC) [Entitic mass] 29.6 pg 27.5-35.2 [facility] Automated erythrocyte mean c orpuscular hemoglobin concentration measurement (mass/volon 03-12-2020 MCHC (RBC) [Mass/Vol] 33.5 g/dL 32.5-35.6 [facility] Automated erythrocyte mean c orpuscular volumeon 03-12-2020 MCV (RBC) [Entitic vol] 88.5 fL 83.5-101 [facility] Automated erythrocytes count in urine sediment (number/area)on 03-12-2020 RBC Auto (Urine sed) [#/Area] 1-2 [HPF] [facility] Automated leukocytes count i n urine sediment (number/area)on 03-12-2020 WBC Auto (Urine sed) [#/Area] Innumerable [HPF] [facility] Automated monocyte %on 03-12 Monocytes/100 WBC (Bld) 8.0 % [facility] Automated neutrophil %on Neutrophils/100 WBC (Bld) 74.8 % [facility] Automated urine color determ inationon 03-12-2020 Color (U) Yellow Yellow [facility] Blood erythrocytes automated count (number/volume)on 03-12-2020 RBC (Bld) [#/Vol] 5.23 10*6/uL 3.90-5.60 [facility] Blood hemoglobin measurement (mass/volume)on 03-12-2020 Hemoglobin (Bld) [Mass/Vol] 15.5 g/dL 13.0-17.0 [facility] Blood leukocytes automated c ount (number/volume)on 03-12-2020 WBC (Bld) [#/Vol] 6.3 10*3/uL 4.1-10.5 [facility] Blood neutrophil count by au tomated method (number/volume)on 03-12-2020 Neutrophils (Bld) [#/Vol] 4.7 10*3/uL 1.8-7.7 [facility] Estimated glomerular filtrat ion rate (GFR) non- Americanon 03-12-2020 GFR/1.73 sq M predicted among non-blacks MDRD (S/P/Bld) [Vol rate/Area] mL/min/{1.73_m2} [facility] Hematocrit [Volume Fraction] of Blood by Automated counton 03-12-2020 Hematocrit (Bld) [Volume fraction] 46.3 % 38.8-50.0 [facility] Otheron 03-12-2020 GFR/1.73 sq M.predicted MDRD (S/P/Bld) [Vol rate/Area] mL/min/{1.73_m2} [facility] Comment on above: GFR estimated refere nce range: According to KDOQI guidelines, <60 ml/min/1.73m2 is sufficient to diagnose a patient with chronic kidney disease. Nucleated RBC/100 WBC (Bld) [Ratio] 0.2 % 0-0.5 [facility]acy Creatinine Clearance (Chem N/A [facility] Serum or plasma calcium fabrizio urement (mass/volume)on 03-12-2020 Calcium [Mass/Vol] 9.3 mg/dL 8.2-10.2 [facility] Serum or plasma chloride rose marie surement (moles/volume)on 03-12-2020 Chloride [Moles/Vol] 103 mmol/L 95-114 [facility] Serum or plasma creatinine m easurement with calculation of estimated glomerular filtron 03-12-2020 Creatinine [Mass/Vol] 1.02 mg/dL 0.64-1.27 [facility] Serum or plasma glucose fabrizio urement (mass/volume)on 03-12-2020 Glucose [Mass/Vol] 107 mg/dL 70-100 [facility] Comment on above: ADA recommended refe rence rangeRandom Glucose Reference Range is dependent on time and content of last meal. Glucose of more than 200 mg/dL in a nonstressed, ambulatory subject supports the diagnosis of Diabetes Mellitus. Serum or plasma potassium me asurement (moles/volume)on 03-12-2020 Potassium [Moles/Vol] 4.3 mmol/L 3.5-5.1 [facility] Serum or plasma sodium measu rement (moles/volume)on 03-12-2020 Sodium [Moles/Vol] 139 mmol/L 136-146 [facility] Serum or plasma total carbon dioxide measurement (moles/volume)on 03-12-2020 CO2 [Moles/Vol] 25.4 mmol/L 22.0-30.0 [facility] Serum or plasma urea nitroge n measurement (mass/volume)on 03-12-2020 Urea nitrogen [Mass/Vol] 22 mg/dL 12-13 [facility] Specific gravity of Urine by Automated test stripon 03-12-2020 Specific gravity (U) [Rel density] 1.025 1.001-1.030 [facility] Squamous epithelial cells de tection in urine sediment by light microscopyon 03-12-2020 Epithelial cells.squamous LM Ql (Urine sed) None seen [HPF] [facility] Urinalysison 03-12-2020 Hyaline casts LM Ql (Urine sed) 0-8 [LPF] [facility] Urine bacteria detection by automated methodon 03-12-2020 Bacteria Auto Ql (U) 4+ None Seen [facility] Urine clarity by refractomet ry automatedon 03-12-2020 Clarity Refractometry automated (U) Cloudy Clear [facility] Urine culture routineon 02-21 Bacteria identified Cx Nom (U) Escherichia coli [facility] Urine glucose measurement by automated test strip (mass/volume)on 03-12-2020 Glucose Auto test strip (U) [Mass/Vol] Normal mg/dL Normal [facility] Urine hemoglobin detection b y automated test stripon 03-12-2020 Hemoglobin Auto test strip Ql (U) Negative Negative [facility] Urine ketones measurement by automated test strip (mass/volume)on 03-12-2020 Ketones (U) [Mass/Vol] Negative Negative [facility] Urine leukocyte esterase det ection by automated test stripon 03-12-2020 Leukocyte esterase Auto test strip Ql (U) 3+ Negative [facility] Urine nitrite detection by t est stripon 03-12-2020 Nitrite Ql (U) Negative Negative [facility] Urine pH measurement by auto mated test stripon 03-12-2020 pH (U) 6.5 [pH] 5.0-9.0 [facility] Urine protein measurement by automated test strip (mass/volume)on 03-12-2020 Protein (U) [Mass/Vol] Trace mg/dL Negative [facility] Urine total bilirubin detect ion by test stripon 03-12-2020 Bilirubin Ql (U) Negative Negative [facility] Urine urobilinogen measureme nt by automated test strip (mass/volume)on 03-12-2020 Urobilinogen (U) [Mass/Vol] Normal mg/dL Normal [facility] CLAVICLE RIGHTon 01-26-2017 [facility] RIGHT [facility] [address] [place] [address] ========Patient Name: BONIFACIO AMARO : 1950ex: MAge: Race: WhiteMRN: [id number]. Location: 84Patient Status: Date: 01/26/2017 11:40:00 AMCompleted Date: 01/26/2017 11:45 AMRequesting Provider: RAKAN GILMAN Attending Provider: Report Copy To: Signs & Symptoms: S42.021A Disp fx of shaft of right clavicle, init for clos fx [id number]: AthenaComments: , , , Ordering Provider - RAKAN GILMAN MD , Rendering Provider - RAKAN GILMAN MD , Exam: CLAVICLE RIGHTAccession #: [id number] CLAVICL E RIGHT, HIP LEFT 1 OR 2 VWS WITH PELVIS 01/26/2017 11:45 AM EST SIGNS AND SYMPTOMS: S42.021A Disp fx of shaft of right clavicle, init for clos fx I10 TECHNOLOGIST COMMENTS: Patient complains of right clavicle pain. History of right clavicle surgery 2013. (accession [id number]), Patient c/o lt hip pain (accession [id number]) QUESTION FOR THE RADIOLOGIST: , , , Ordering Arias GILMAN MD , Rendering Arias GILMAN MD , PROTOCOL: AP and Axial views were obtained. (accession [id number]), AP(PA) and Lateral views were obtained. (accession [id number]) FINDINGS: Right shoulder: Healing lateral mid shaft clavicle fracture with healing hardware tracks and only limited heterotopic ossification similar to prior study of September 07, 2015. Mild AC joint and glenohumeral joint arthritis with cephalic migration and potential for impingement, also similar to prior study. Left hip: Left total hip arthroplasty in unchanged alignment from prior study of March 31, 2016. Some interval increase in heterotopic ossification along the superolateral, and the inferior aspect of the greater trochanter. Mild osteoporosis and iliac enthesophytes. Right tanana hip shows minor arthritis. IMPRESSION: 1. Healing right clavicle fracture similar to prior study2. 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 Transcribed by: [email or web address], User Resident: Electronically Signed by: JANN US @ 01/26/2017 11:58 AM Normal [facility] Comment on above: Order Comment: , , = ========= , Ordering Arias GILMAN MD , Rendering Arias GILMAN MD , HIP LEFT 1 OR 2 VWS WITH PEL VISon 01-26-2017 HIP LEFT 1 OR 2 VWS WITH PELVIS [facility] [address] [place] [address] ========Patient Name: BIRGITALLIBONIFACIO : 1950ex: MAge: Race: WhiteMRN: [id number]. Location: 84Patient Status: Date: 01/26/2017 10:00:00 AMCompleted Date: 01/26/2017 10:01 AMRequesting Provider: CARRILLO LEWIS Attending Provider: Report Copy To: Signs & Symptoms: Z47.1 Aftercare following joint replacement surgery [id number]: AthenaComments: , , Views (X-RAY, HIP): AP Pelvis, X-Table Lateral Hip , Weight Bearing?: Y , With Magnification Marker?: Y , , , Ordering Provider - CARRILLO LEWIS MD , Exam: HIP LEFT 1 OR 2 VWS WITH PELVISAccession #: [id number] CLAVICL E RIGHT, HIP LEFT 1 OR 2 VWS WITH PELVIS 01/26/2017 11:45 AM EST SIGNS AND SYMPTOMS: S42.021A Disp fx of shaft of right clavicle, init for clos fx I10 TECHNOLOGIST COMMENTS: Patient complains of right clavicle pain. History of right clavicle surgery 2012. (accession [id number]), Patient c/o lt hip pain (accession [id number]) QUESTION FOR THE RADIOLOGIST: , , , Ordering Provider - RAKAN GILMAN MD , Rendering Provider - RAAKN GILMAN MD , PROTOCOL: AP and Axial views were obtained. (accession [id number]), AP(PA) and Lateral views were obtained. (accession [id number]) FINDINGS: Right shoulder: Healing lateral mid shaft clavicle fracture with healing hardware tracks and only limited heterotopic ossification similar to prior study of September 07, 2015. Mild AC joint and glenohumeral joint arthritis with cephalic migration and potential for impingement, also similar to prior study. Left hip: Left total hip arthroplasty in unchanged alignment from prior study of March 31, 2016. Some interval increase in heterotopic ossification along the superolateral, and the inferior aspect of the greater trochanter. Mild osteoporosis and iliac enthesophytes. Right tanana hip shows minor arthritis. IMPRESSION: 1. Healing right clavicle fracture similar to prior study2. 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 Transcribed by: [email or web address], User Resident: Electronically Signed by: JANN US @ 01/26/2017 11:58 AM Normal [facility] Comment on above: Order Comment: , , V iews (X-RAY, HIP): AP Pelvis, X-Table Lateral Hip , Weight Bearing?: Y , With Magnification Marker?: Y , , , Ordering Provider - CARRILLO LEWIS MD , Vital Signs Date Time Vital Sign Value Performing Clinician Facility 03-24-2023 09:00-0500 Body height 176.53 cm Liz Cormier Other [facility] Other 03-24-2023 09:00-0500 Body mass index (BMI) [Ratio] 34.7 kg/m2 Liz Cormier Other [facility] Other 03-24-2023 09:00-0500 Body weight 108.14 kg Liz Cormier Other [facility] Other 03-24-2023 09:00-0500 Diastolic blood pressure 76 mm[Hg] Liz Cormier Other [facility] Other 03-24-2023 09:00-0500 Systolic blood pressure 144 mm[Hg] Liz Cormier Other [facility] Other 07-04-2022 10:00-0400 Body height 176.53 cm Liz Cormier Other [facility] Other 07-04-2022 10:00-0400 Body mass index (BMI) [Ratio] 35.22 kg/m2 Liz Cormier Other [facility] Other 07-04-2022 10:00-0400 Body weight 109.77 kg Liz Cormier Other [facility] Other 07-04-2022 10:00-0400 Diastolic blood pressure 84 mm[Hg] Liz Cormier Other [facility] Other 07-04-2022 10:00-0400 SaO2% (BldA) [Mass fraction] 97 % Lizkali Cormier Other [facility] Other 07-04-2022 10:00-0400 Systolic blood pressure 128 mm[Hg] Liz Cormier Other [facility] Other 03-05-2021 11:45-0500 Body height 182.88 cm Lula De La O Other [facility] Other 03-05-2021 11:45-0500 Body mass index (BMI) [Ratio] 37.56 kg/m2 Lula De La O Other [facility] Other 03-05-2021 11:45-0500 Body weight 125.65 kg Lula De La O Other [facility] Other 03-05-2021 11:45-0500 Respiratory rate 18 /min Lula De La O Other [facility] Other 03-05-2021 11:45-0500 SaO2% (BldA) [Mass fraction] 98 % Lula De La O Other [facility] Other Encounters Encounter Date Encounter Type Care Provider Facility Start: 04-07-2023 End: 04-07-2023 ambulatory Liz Cormier Other [facility] Other Start: 04-07-2023 Telephone encounter Liz Cormier [facility] Start: 04-06-2023 Office outpatient ne w 45 minutes Francisco Javier Camacho [facility] Start: 04-06-2023 End: 04-06-2023 ambulatory Liz Cormier Facility:[facility] Start: 04-06-2023 End: 04-06-2023 ambulatory MD Liz Cormier Work Phone: [facility] Other Start: 04-06-2023 End: 04-06-2023 Patient encounter procedure MD Liz Cormier Work Phone: [facility] Start: 03-30-2023 End: 03-30-2023 ambulatory MADIE ZUNIG[facility] Start: 03-25-2023 End: 03-25-2023 ambulatory Liz Cormier Other [facility] Other Start: 03-25-2023 Telephone encounter Liz Cormier [facility] Start: 03-24-2023 End: 03-24-2023 ambulatory Liz Cormier Other [facility] Other Start: 03-24-2023 Office outpatient vi sit 15 minutes Liz Cormier [facility] Start: 02-16-2023 End: 02-16-2023 ambulatory Liz Cormier Other [facility] Other Start: 02-16-2023 Telephone encounter Liz Cormier [facility] Start: 02-09-2023 End: 02-09-2023 ambulatory Liz Cormier Other [facility] Other Start: 02-09-2023 Telephone encounter Liz Cormier [facility] Start: 07-15-2022 End: 07-15-2022 ambulatory Liz Cormier Other [facility] Other Start: 07-15-2022 Telephone encounter Liz Cormier [facility] Start: 07-11-2022 End: 07-12-[address] LIZ CORMIER Facility:[facility] Start: 07-04-2022 End: 07-04-2022 ambulatory Liz Cormier Other [facility] Other Start: 07-04-2022 Transitional care corazon villalobosjose a sr 14 day discharge Liz Cormier [facility] Start: 07-01-2022 End: 07-01-2022 ambulatory Liz Cormier Other [facility] Other Start: 07-01-2022 Telephone encounter Liz Cormier [facility] Start: 06-27-2022 End: 06-28-2022 Evaluation and management of inpatient DR LIZ CORMIER Facility:[facility] Start: 06-26-[address] LIZ CORMIER Facil ity:[facility] Start: 04-16-2022 End: 04-16-2022 ambulatory [facility] Start: 03-18-2022 End: 03-19-[address] DOCTOR MIXON Facility:[facility] Start: 02-11-2022 End: 02-12-[address] JAVI BALLESTEROS Facility:[facility] Start: 02-10-2022 Adult health examination Jeannie Cormier Other [facility] Other Start: 03-05-2021 End: 03-05-2021 ambulatory Lula De La O Other [facility] Other Start: 03-05-2021 Office outpatient vi sit 15 minutes Lula De La O [facility] Start: 2020 Pre-procedure evalua tion check Liz Cormier Other [facility] Other Start: 03-26-2020 End: 03-26-2020 Patient encounter procedure Felipe Hancock -Pre-Surgical Testing Start: 03-21-2020 Registered Recurring Felipe Hancock -P hysical Therapy [facility] [place] Start: 03-12-2020 End: 03-12-2020 Patient encounter procedure Felipe Hancock -Pre-Surgical Testing Start: 02-15-2020 End: 02-15-2020 Patient encounter procedure Felipe Hancock [facility] Start: 01-26-2017 End: 01-27-2017 Ambulatory [facility] Facility:[facility] Procedures Date Procedure Procedure Detail Performing Clinician Start: 04-06-2023 Plain X-ray of left shoulder MD Liz Cormier Work Phone: Start: 02-11-[address] LIZ CORMIER Comment on above: Performed By: #### P [facility] #### [facility] [address] [place] [address] Dr. Tomasz Patel Start: 03-12-2020 Bacteria identified Cx Nom (U) Felipe Hancock Start: 03-12-2020 Urine culture Felipe Cedrick neelam Start: 02-15-2020 XR hip RT 2V Felipe Phelps y Start: 08-13-2017 Screening for malign ant neoplasm of colon Liz Cormier Other Start: 07-29-2017 Screening for malign ant neoplasm of prostate Liz Cormier Other Start: 10-05-2015 Pre-surgery evaluation Liz Cormier Other Start: 10-05-2015 Total replacement of hip Liz Cormier Other Depression screening Liz Cormier Other Screening for malign ant neoplasm of prostate Liz Cormier Other Immunizations Immunization Date Immunization Notes Care Provider Fa cility 01-11-2019 pneumococcal conjuga te vaccine, 13 valent Liz Cormier Other [facility] Other 01-06-2017 pneumococcal conjuga te vaccine, 13 valent Liz Cormier Other [facility] Other Payers Date Payer Category Payer Self-pay [id number] 1958 Medicare [id number] 1958 Unknown [id number] [facility] [id number] 1950 Unknown [id number] 2.16.84 [id number] 1950 Unknown [id number] 2.16.84 [id number] 1950 Unknown [id number] 2.16.84 [id number] 1950 Unknown [id number] 2.16.84 [id number] Medicare [id number] Unknown [id number] 2.16.8 [id number] Social History Date Type Detail Facility Start: 03-12-2020 End: 03-27-2020 Tobacco smoking status VTIS Ex-smoker (finding) [facility] Start: 1950 Sex Assigned At Male F [facility] Sex Assigned At Sex Assigned At Bir th [employer] Other Medical Equipment Procedure Code Equipment Code Equipment Origin al Text Equipment Identifier Dates Arthroplasty, hip, total, anterior approach Coated hip femur prosthesis, modular ()[id number] [id number] FDA Start: 03-27-2020 Arthroplasty, hip, total, anterior approach Acetabular shell ()[id number] [id number] FDA Start: 03-27-2020 Arthroplasty, hip, total, anterior approach Orthopaedic bone screw, non-bioabsorbable, sterile ()[id number] [id number] FDA Start: 03-27-2020 Arthroplasty, hip, total, anterior approach Non-constrained polyethylene acetabular liner ()[id number] FDA Start: 03-27-2020 Arthroplasty, hip, total, anterior approach Acetabular shell ([id number] [facility] Start: 03-27-2020 Goals Date Patient Goal Desired Activity /State Clinical Notes 03-05-2021 to 04-06-2023 Note Date & Type Note Facility 04-06-2023 Evaluation note Encounter Date Diagnosis Assessment Notes Mar, Internal derangement of left shoulder (ICD-10 - M24.812) Mar, Traumatic complete tear of left rotator cuff, initial encounter (ICD-10 - S46.012A) Discussed with patient and company on the patient's symptoms, exam, and imaging. Likely etiologies of the patient's symptoms were discussed. Given the patient's physical exam and significant weakness, patient is likely suffering from an acute traumatic rotator cuff tear however there is some evidence of chronic rotator cuff issues seen on radiographs. We will obtain an MRI for further evaluation and for possible surgical planning. He will follow up after the MRI to discuss the results. Mar, Acute pain of left shoulder (ICD-10 - M25.512) [facility] Other 01-08-2024 NoteContinue [facility]inUnBl[facility]01-08-2024 NoteHypertension is well controlled 138/78 Continue lisinopril, metoprololUnBlanchard Valley Health System01-08-2024 NoteUTP CARDIOLOGY PROGRESS NOTE HPI: Bonifacio Amaro is a 72 y.o. male here for routine annual f/U HPI 72 yo male with known h/o of CAD, HTN, HPL Patient here for 1 year follow up CAD and hypertension. Had routine labs in Jan 2023. He denies chest pain and change in [place]. Fell and injured his left shoulder last week. States mechanical fall from stepping on a pipe and falling onto Lt shoulder. States fall was not due to lightheadedness/syncope. C/O lt shoulder pain with movement and limited ROM. From a heart standpoint he is feeling well. Review of Systems Cardiovascular: Positive for dyspnea on exertion. Musculoskeletal: Positive for arthritis and joint pain. All other systems reviewed and are negative. Visit Vitals BP 138/78 (BP Location: Right arm, Patient Position: Sitting) Pulse 76 Ht 1.829 m (6') Wt 106 kg (234 lb) SpO2 98% BMI 31.74 kg/m??? Smoking Status Former BSA 2.32 m??? No Known Allergies Medications: Current Outpatient Medications on File Prior to Visit Medication Sig Dispense Refill aspirin 81 mg chewable tablet in the morning. lisinopril 20 mg tablet Take 1 tablet (20 mg) by mouth in the morning. 30 tablet 11 lovastatin (Mevacor) 40 mg tablet Take 40 mg by mouth at bedtime. metoprolol tartrate (Lopressor) 25 mg tablet Take 25 mg by mouth in the morning and at bedtime. nitroglycerin (Nitrostat) 0.4 mg SL tablet nitroglycerin 0.4 mg sublingual tablet ergocalciferol (Vitamin D-2) 1.25 MG (23451 Units) capsule ergocalciferol (vitamin D2) 1,250 mcg (50,000 unit) capsule No current facility-administered medications on file prior to visit. Physical Exam: Constitutional: Appearance: Normal appearance. Without apparent distress HENT: Head: Normocephalic and atraumatic. Nose: Nose normal. Mouth/Throat: Mouth: Mucous membranes are moist. Eyes: Extraocular Movements: Extraocular movements intact. Conjunctiva/sclera: Conjunctivae normal. Neck: Vascular: No JVD. Cardiovascular: Rate and Rhythm: Normal rate and regular rhythm. Pulses: Dorsalis pedis pulses are 3 on the right side and 3on the left side. Posterior tibial pulses are 3 on the right side and 3 on the left side. Heart sounds: Normal heart sounds, S1 normal and S2 normal. Pulmonary: Effort: Pulmonary effort is normal. Breath sounds: Normal breath sounds. Abdominal: General: Bowel sounds are normal. Palpations: Abdomen is soft. Musculoskeletal: General: limited ROM of Lt shoulder Right lower leg: No edema. Left lower leg: No edema. Skin: General: Skin is warm and dry. Capillary Refill: Capillary refill takes less than 2 seconds. Neurological: General: No focal deficit present. Mental Status: he is alert and oriented to person, place, and time. Psychiatric: Mood and Affect: Mood normal. Behavior: Behavior normal. Thought Content: Thought content normal. Judgment: Judgment normal. Labs: 02/16/23 CBC normal BUN 22, CR 0.98 normal LFT normal Chol 161, Trig 64, LDL 91, HDL 58 Last lab values have been reviewed CV Testing: Stress test 03/31/2022: No ischemia, preserved ejection fraction Echocardiogram 03/26/2022: No significant abnormalities Assessment/Plan: Hypertensive disorder Hypertension is well controlled 138/78 Continue lisinopril, metoprolol Hyperlipidemia Continue statin RTC 6 months to [address] pt [address] Dr Husain's office for lt shoulder injuryUnBlanchard Valley Health System01-08-2024 NotePatient here for 1 year follow up CAD and hypertension. Had routine labs in Jan 2023. He denies chest pain and change in [place]. Fell and injured his left shoulder recently. States fall was not due to lightheadedness/syncope. Review of Systems Cardiovascular: Positive for dyspnea on exertion. Musculoskeletal: Positive for arthritis and joint pain. All other systems reviewed and are negative.[facility] 03-25-2023 Evaluation note* Encounter Date Diagnosis Assessment Notes Treatment Notes Treatment Clinical Notes Mar, Closed fracture of head of left humerus, initial encounter (ICD-10 - S42.292A) [facility] [employer] Other 01-02-2024 Evaluation note* Encounter Date Diagnosis Assessment Notes Treatment Notes Treatment Clinical Notes Mar, Injury of left shoulder, initial encounter (ICD-10 - S49.92XA) Check xray, PT order printed. Discussed ortho referral to [facility] if warranted. take tylenol prn pain due to his cardiac history [facility] Other 11-20-2023 Evaluation note* Encounter Date Diagnosis Assessment Notes Treatment Notes Treatment Clinical Notes Jan, Primary hypertension (ICD-10 - I10) Jan, Hypercholesterolemia (ICD-10 - E78.00) Jan, ASHD (arteriosclerot ic heart disease) (ICD-10 - I25.10) [facility] Other 04-14-2023 Evaluation note* Encounter Date Diagnosis Assessment Notes Treatment Notes Treatment Clinical Notes Jun, Tubulo-interstitia l nephritis, not specified as acute or chronic (ICD-10 - N12) Recheck labs on 07/11 to check normalization of renal function Jun, Unspecified Escherichia coli [E. coli] as the cause of diseases classified elsewhere (ICD-10 - B96.20) Recheck urine on 07/11 to ensure resolution of infection Jun, Acute renal failure, unspecified acute renal failure type (ICD-10 - N17.9) Encouraged hydration, less coffee and pop. Repeat labs on 07/11. Finish levaquin as prescribed. [facility] Chief Complaint: Patient being seen via telephone call for follow up stress test and echo per Ximena Croft CNP. His lisinopril was increased to 20mg daily. HPI: Bonifacio Amaro is a 71 y.o. male Date of phone call: 04/16/2022 No chief complaint on file. HPI Total time spent in Medical Discussion: 15 minutes. Total 15 minutes. The visit was initiated by the patient and conducted [id number] with use of audio-only real time telephone communication between patient and provider for a virtual visit. Verbal consent to provide and bill for this service was obtained on 04/16/2022. Cardiology ROS: Review of Systems Cardiovascular: Positive for dyspnea on exertion. Musculoskeletal: Positive for arthritis and joint pain. All other systems reviewed and are negative. Past Medical History He has a past medical history of Coronary artery disease, Hyperlipidemia, and Hypertension. Surgical History He has a past surgical history that includes Cardiac catheterization (01/30/2009); Coronary stent placement; Total hip arthroplasty; and Shoulder surgery. Social History He reports that he has quit smoking. His smoking use included cigarettes. He has never used smokeless tobacco. He reports current alcohol use. No history on file for drug use. Family History Family History Problem Relation Name Age of Onset Heart attack Father Allergies Patient has no known allergies. Medications (Not in a hospital admission) Investigations: Stress test 03/31/2022: No ischemia, preserved ejection fraction Echocardiogram 03/26/2022: No significant abnormalities Last Recorded Vitals Physical Examination: unobtainable Assessment: Essential hypertension Atherosclerosis of tanana coronary artery of tanana heart with stable angina pectoris (CMS/HCC) Right ventricular hypertrophy by electrocardiogram Dyspnea on exertion Electrocardiogram abnormal Plan: Reassurance Continue medical rx; ASA, Bblocker, Lisinopril, and Mevacor RTC in a year Jordon Hernandez MD, MPH, FACC, FSCAI, FSVM Interventional Cardiology Pager Email: [email or web address]12-27-2022 NoteCARDIAC STRESS TEST Requesting Physician: Ximena Croft NP Procedure Date:03/18/2022 REASON FOR TESTING: Dyspnea on exertion. On presentation to the lab, the patient was noted to have sinus bradycardia with a heart rate of 56 and a resting blood pressure of 120/80 mm/Hg, with normal intervals. Patient underwent Lexiscan study, and with infusion, there was noted to be occasional PVCs, which were even noted 3 minutes into infusion. No ischemic changes were noted on infusion. A peak heart rate of 74 beats per minute was noted with a blood pressure of 132/80 mm/Hg. The stress test was terminated as per protocol as per the Lexiscan study. INTERPRETATION: There is no EKG evidence of ischemia during the study. Nuclear imaging portion to be dictated by Radiology separately.[id number]* Encounter Date Diagnosis Assessment Notes Treatment Notes Treatment Clinical Notes Feb, History of total right hip arthroplasty (ICD-10 - Z96.641) Patient is progressing well from surgery. We discussed the importance of continuing to work on range of motion and strength exercise. Call with any concerns or questions. Feb, Primary osteoarthritis of right hip (ICD-10 - M16.11) [facility] Other Evaluation noteNo InformationNort [employer] Other Evaluation noteNo assessment information available [facility] Work Phone: Hisjnpb general Narrative - Reported* Type Description Date Medical History CARDIAC ISSUES Surgical History 2 CARDIAC STENTS Surgical History LTHA 2014 Surgical History RTHA 2020 Hospitalization History SEE ABOVE [facility] Other Hisvrzl general Narrative - Reported* Type Description Date Medical History CARDIAC ISSUES Surgical History 2 CARDIAC STENTS Surgical History LTHA 2014 Surgical History RTHA 2020 Surgical History ANTERIOR SUPINE TOTAL RIGHT HIP ARTHROPLASTY Hospitalization History SEE ABOVE [facility] Other Hiseiws general Narrative - Reported* Type Description Date Medical History CARDIAC ISSUES Medical History Benign prostatic hyp erplasia with lower urinary tract symptoms Medical History Hypercholesterolemia Medical History Essential hypertension Medical History ASHD (arteriosclerotic heart dis ease) Surgical History 2 CARDIAC STENTS Surgical History LTHA 2014 Surgical History RTHA 2020 Surgical History ANTERIOR SUPINE TOTAL RIGHT HIP ARTHROPLASTY Hospitalization History SEE ABOVE Hospitalization History [facility] 06/26/22 [employer] Other Summary Purpose Family History Relationship Condition Age at Onset Recorded Date/T cha father Myocardial infarction Unknown Not Specified Hypertension Unknown Cerebrovascular accident (CVA) Unknown Advance Directives Advance Directive Response Recorded Date/ Time Advance Directives No January 6:31pm Chief Complaint and Reason for Visit Chief Complaint M25.551 Hip pain Chief Complaint M25.551 Hip pain Right ADILENE/pre-op Hip pain Assessments No Assessments Information AvailableNo Assessments Information Available Reason for Referral Reason *Waiting for appt Possible L humeral head fracture - Xray in chart. Diagnosis 1 Closed fracture of h ead of left humerus, initial encounter (S42.197A) Referral Organization [facility] Referring Provider First Name Liz Referring Provider Last Name Casa Referring Provider Specialty [facility] Referred Organization [facility] Referred Provider Francisco Javier Camacho Referred Address [address] [place], [place],[address] Referred Provider Specialty Orthopedic S urgery Referral Priority Routine General Notes Roberta Mckenzie 07:41:51 PM >received today, referral faxed P2P Additional Source Comments (unrecognized sect ion and content) No Status Records FoundNo Status Records FoundNo Status Records FoundNo Status Records Found INFORMATION SOURCE (unrecogn ized section and content) DATE CREATED AUTHOR 09/15/2017 [facility] DATE CREATED AUTHOR AUTHOR'S ORGANIZ ATION 07/17/2022 [facility] DATE CREATED AUTHOR AUTHOR'S ORGANIZ ATION 03/30/2023 [facility] DATE CREATED AUTHOR AUTHOR'S ORGANIZ ATION 04/07/2023 [facility] REASON FOR VISIT (unrecogniz ed section and content) Recheck RTHATCMTBHlabsRefill labsShoulderpossible fractureLeft Shoulder PainORTHO CONSULT NOTE Care Teams (unrecognized sec tion and content) Team Status: Active Member Role Status Dates Liz Cormier MD Primary Care Provider Active Team Status: Inactive Member Role Status Dates Liz Cormier MD Primary Care Provider Active Francisco Javier Camacho , Attending Provider Active Goals (unrecognized section and content) Goals may be documented in a n alternate section FOR RECORDS PERTAINING TO PATIENTS WHO ARE OR HAVE BEEN ENROLLED IN A CHEMICAL DEPENDENCY/SUBSTANCEABUSE PROGRAM, SOME INFORMATION MAY BE OMITTED. This clinical summary was aggregated from multiple sources. Caution should be exercised in using it in the provision of clinical care. This summary normalizes information from multiple sources, and as a consequence, information in this document may materially change the coding, format and clinical context of patient data. In addition, data may be omitted in some cases. CLINICAL DECISIONS SHOULD BE BASED ON THE PRIMARY CLINICAL RECORDS. [facility] [employer] provides no warranty or guarantee of the accuracy or completeness of information in this document.
--- NOTE | 2023-04-10 09:56 | MR_ITS ---
The [address] [address] Patient Name: SERJIO AMARO MRN: [id number] date: 1950 Sex: M Assigned Patient Location: MRI Current Patient Location: MRI Accession/Order Number: [id number] Exam Date: 04/10/2023 11:00 Report Date: 04/10/2023 11:45 At the request of: THIERRY ROSE Procedure: MR shoulder LT wo con EXAMINATION: MR shoulder LT wo con HISTORY: Injury Of Left Shoulder S49.92XA COMPARISON: No relevant comparison available. TECHNIQUE: A variety of imaging planes and parameters were utilized for visualization of suspected pathology. Imaging was performed without contrast. FINDINGS: Limited by significant motion artifact ROTATOR CUFF REGION CUFF TENDONS: Severe increased signal intensity in the rotator cuff tendons. 5 mm insertional tear posterior supraspinatus CUFF MUSCLES: Normal appearing muscles. DELTOID: Normal. No significant atrophy or tear. LONG BICEPS TENDON: Diffusely thickened with increased signal consistent with tendinitis LABRUM/BICEPS ANCHOR SUPERIOR: Poorly visualized ANTERIOR/INFERIOR: Moderate to severe attenuation associated with degenerative arthropathy. POSTERIOR: Moderate to severe attenuation with associated degenerative arthropathy. CAPSULE Normal. No visible capsular laxity or thickening. AC JOINT REGION AC JOINT: Severe osteoarthropathy with moderate to severe narrowing of the underlying coracoacromial arch. AC LIGAMENTS: Normal acromioclavicular ligament. CC LIGAMENTS: Normal coracoclavicular ligaments. ACROMION: Normal horizontal (Type I) configuration. SUBACROMIAL BURSA: Mild effusion. HYALINE CARTILAGE: Marked cartilaginous erosion consistent with advanced arthropathy. OTHER BONES: Marginal osteophytes of the humerus and glenoid are consistent with osteoarthritis. OTHER OBSERVATIONS: Negative. No other significant findings or glenohumeral effusion. MR/MR shoulder LT wo con IMPRESSION: Moderate to severe acromioclavicular joint osteoarthritis with significant subacromial narrowing Moderate to severe glenohumeral joint osteoarthritis Moderate to severe rotator cuff tendinitis with 5 mm insertional tear of the posterior supraspinatus Electronically authenticated by: ANGELIQUE CARABALLO Date: 04/10/2023 11:45
== END 2023-04-10 09:51 | disposition home or self-care (01) ==
LOC: MRI 09:50
PROVIDERS: PCP Family Medicine; Visit Provider Orthopaedic Surgery
DX: S49.92XA Unspecified injury of left shoulder and upper arm, initial encounter (principal); M19.012 Primary osteoarthritis, left shoulder
CPT/HCPCS: 73221

== ENCOUNTER 2024-02-15 08:11 | Outpatient (OUT) | payer MEDICARE, OTHER, SELFPAY ==
[2024-02-15 09:26] LABS: Alanine Aminotransferase 26 U/L (16-63); Albumin Globulin Ratio 0.9; Albumin Level 3.3 g/dL (3.4-5.0); Alkaline Phosphatase 71 U/L (46-116); Aspartate Amino Transferase 41 U/L (15-37); Bilirubin Direct 0.1 mg/dL (0.0-0.2); Bilirubin Total 0.9 mg/dL (0.2-1.0); Chol HDL Ratio 2.3; Cholesterol 150 mg/dL (<=200); Globulin 3.8 g/dL; HDL Cholesterol 65 mg/dL (40-60); Total Protein 7.1 g/dL (6.4-8.2); Triglycerides 78 mg/dL (<=150); VLDL CHOLESTEROL 15.6 mg/dL
== END 2024-02-15 08:12 | disposition home or self-care (01) ==
LOC: LAB 08:13
PROVIDERS: PCP Family Medicine; Visit Provider Internal Medicine Interventional Cardiology
DX: E78.5 Hyperlipidemia, unspecified (principal)
CPT/HCPCS: 36415; 80061; 80076

== ENCOUNTER 2024-09-09 09:11 | Outpatient (OUT) | payer MEDICARE, OTHER, SELFPAY ==
--- OUTSIDE RECORDS SUMMARY | 2024-09-09 09:21 | XMS_ITS | CCD ---
Author Organization [facility] Care Team Providers Care Horse Identifier Name Role Phone DEBBIE, SUMMON Unavailable Unavailable DEBBIE, SUMMON Unavailable Unavailable LIZ CORMIER Unavailable Unavailable CASA, LIZ Unavailable Unavailable Felipe Hancock Attending Provider Liz Cormier Primary Care Provider [phone] Lula De La O Unavailable Liz Cormier Unavailable CASA, DR LIZ Doty Admitting Unavailable CORMIER, DR LIZ Doty Attending Unavailable CORMIER, DR LIZ Doty Primary Care Unavailable CORMIER, DR LIZ Doty Consulting Unavailable CORMIER, DR LIZ Doty Primary Care Unavailable CORMIER, DR LIZ Doty Primary Care Unavailable HOY ., DR ZIMMERMAN Admitting Unavailable HOY ., DR ZIMMERMAN Attending Unavailable HOY ., DR ZIMMERMAN Consulting Unavailable MARKER ., DR RAMACHANDRAN Consulting Unavailable GODWIN, AFLREDO Consulting Unavailable SISTER, TEJA Consulting Unavailable BALL, DR CALDWELL Admitting Unavailable BALL, DR CALDWELL Attending Unavailable CORMIER, DR LIZ Doty Primary Care Unavailable BALL, DR CALDWELL Consulting Unavailable MISC, DR CUNNINGHAM Admitting Unavailable MISC, DR CUNNINGHAM Attending Unavailable CORMIER, DR LIZ Doty Primary Care Unavailable WILLOW SPRING, DR ANGELIQUE Tabares Consulting Unavailable MISC, DR CUNNINGHAM Consulting Unavailable CORMIER, DR LIZ Doty Consulting Unavailable Casa, MD Liz Doty Primary Care Provider DO Francisco Javier Camacho Attending Provider [phone] Francisco Javier Camacho Unavailable Liz Cormier Primary Care Unavailable Francisco Javier Camacho Attending Unavailable Francisco Javier Camacho Admitting Unavailable JORDON HERNANDEZ Attending Unavailable MADIE ZUNIGA Attending Unavailable Unavailable Unavailable Unavailable Allergies Allergy Classification Reported Allergen(s) Allergy Type Date of Onset Reaction(s) Facility (1 source) 97158,00; Translations: [26254,00] Propensity to adverse reactions (disorder) 9 [facility] Repository (9 sources) patient allergy list reviewed by nurse or physicia Propensity to adverse reactions 7 Comment:Done ERUCES Other (9 sources) Allergies Reconciled Propensity to adverse reactions Unknown ERUCES Other Medications Current Medications Medication Drug Class(es) Dates Sig (Normalized) Sig (Original) aspirin 81 mg delayed release oral tablet (19 sources) Platelet Aggregation Inhibitor, Nonsteroidal Anti-inflammatory Drug Start: 03-28-2020 take 81 mg by mouth twice daily Aspirin Active 81 MG PO Twice daily March 28, 2020 1:00am Start: 03-12-2020 End: 09-29-2023 take 81 mg by mouth once daily Aspirin Discontinued 81 MG PO Daily March 12, 2020 1:00am September 29, 2023 8:59am take 1 tablet by hannah th once daily Aspirin 81 81 MG 1 tablet Orally Once a day Active take 1 tablet by hannah th once daily Aspirin 81 81 MG 1 tablet Orally Once a day Active levoFLOXacin 750 mg oral tablet (2 sources) Quinolone Antimicrobial take 1 tablet by mouth every twenty-four hours levoFLOXacin 750 MG 1 tablet Orally Once a day Active lisinopril 20 mg oral tablet (18 sources) Angiotensin Converting Enzyme Inhibitor Start: take 20 mg by mouth once daily Lisinopril Active 20 MG PO Daily September 29, 2023 12:00am Start: 03-12-2020 End: 09-29-2023 take 10 mg by mouth once daily Lisinopril Discontinued 10 MG PO Daily March 12, 2020 1:00am September 29, 2023 8:59am take 1 tablet by hannah th every twenty-four hours Lisinopril 20 MG 1 tablet Orally Once a day Active lovastatin 40 mg oral tablet (17 sources) HMG-CoA Reductase Inhibitor Start: 03-12-2020 take 40 mg by mouth once daily at bedtime Lovastatin Active 40 MG PO Daily at bedtime March 12, 2020 1:00am take 2 tablets by mouth once evelio ly Lovastatin 40 MG 2 tab Oral Once a day Active meloxicam 15 mg oral tablet (1 source) Nonsteroidal Anti-inflammatory Drug Start: 09-29-2023 take 15 mg by mouth once daily Meloxicam Active 15 MG PO Daily September 29, 2023 12:00am 24 hr metoprolol succinate 25 mg extended release oral tablet (17 sources) beta-Adrenergic Kirk Start: 03-12-2020 take 12.5 mg by mouth twice daily Metoprolol Succinate Active 12.5 MG PO Twice daily March 12, 2020 1:00am take 0.5 tablet by mouth twice d aily Metoprolol Tartrate 25 MG 1/2 tab Oral Twice a day Active Metoprolol Tartr ate 25 MG TAKE 1 2 (ONE HALF) TABLET BY MOUTH TWICE DAILY Oral for 90 Active nitroglycerin 0.4 mg sublingual tablet (4 sources) Nitrate Vasodilator Start: 03-12-2020 Nitroglyce rin Active 0.4 MG SUBLINGUAL Q5M March 12, 2020 1:00am Problems Active Problems Problem Classification Problem Date Documented Da te Episodic/Chronic Acute and unspecified renal failure (2 sources) Acute kidney failure, unspecified; Translations: [ACUTE KIDNEY FAILURE UNSPECIFIED] Onset: 07-17-2022 Episodic Bacterial infection; unspecified site (2 sources) Unspecified Escherichia coli [E. coli] as the cause of diseases classified elsewhere; Translations: [UNS E COLI CAUSE DX CLASS ELSEWHERE] Onset: 07-17-2022 Episodic Cardiac dysrhythmias (9 sources) Cardiac arrhythmia; Translations: [Cardiac arrhythmia, unspecified] Onset: 09-04-2014 Chronic Coronary atherosclerosis and other heart disease (20 sources) Coronary arteriosclerosis; Translations: [Atherosclerotic heart disease of [place] coronary artery without angina pectoris] Onset: 06-21-2013 [...] for closed fracture Episodic Hyperplasia of prostate (20 sources) Lower urinary tract symptoms due to benign prostatic hypertrophy; Translations: [Benign prostatic hyperplasia with lower urinary tract symptoms] Chronic Osteoarthritis (18 sources) Osteoarthritis of right hip joint; Translations: [Unilateral primary osteoarthritis, right hip] Onset: 03-05-2021 Resolved: 03-05-2021 Chronic Osteoporosis (1 source) Age-related osteoporosis without current pathological fracture; Translations: [AGE-RELATED OSTEOPOROSIS W/O CURRENT PATHOLOGICAL FRACTURE] Onset: 01-26-2017 Chronic Other aftercare (4 sources) Aftercare following joint replacement surgery; Translations: [AFTERCARE FOLLOWING JOINT REPLACEMENT SURGERY] Onset: 01-26-2017 Chronic Other aftercare (1 source) senior care (current) use of aspirin; Translations: [RECORD CLERK CURRENT USE OF ASPIRIN] Onset: 07-16-2022 Episodic Other aftercare (1 source) Other agricultural 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 (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; Translations: [OTH RECORD CLERK CURRENT DRUG THERAPY] Onset: 07-16-2022 Episodic Other aftercare (9 sources) Long-term current use of drug therapy; Translations: [Other agricultural 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 (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] Episodic Other and ill-defined heart disease (4 sources) Heart disease, unspecified; Translations: [HEART DISEASE UNSPECIFIED] Onset: 03-18-2022 Chronic Other connective tissue disease (2 sources) Presence of right artificial hip joint; Translations: [PRESENCE OF RIGHT ARTIFICIAL HIP JOINT] Onset: 01-26-2017 Resolved: 03-05-2021 Chronic Other connective tissue disease (13 sources) History of total replacement of right hip joint; Translations: [Presence of right artificial hip joint] Chronic Other connective tissue disease (2 sources) History of total hip arthroplasty; Translations: [Presence of right artificial hip joint] 03-04-2023 Chronic Other injuries and conditions due to external causes (9 sources) History of fall; Translations: [History of falling] Episodic Other injuries and conditions due to external causes (1 source) Unspecified injury of left shoulder and upper arm, initial encounter Episodic Other non-traumatic joint disorders (5 sources) Derangement of left shoulder joint; Translations: [Other specific joint derangements of left shoulder, not elsewhere classified] Chronic Other non-traumatic joint disorders (2 sources) Other specific joint derangements of left shoulder, not elsewhere classified Chronic Other non-traumatic joint disorders (9 sources) Pain in right hip joint; Translations: [Pain in right hip] Episodic Other non-traumatic joint disorders (2 sources) Pain in left shoulder Episodic Other nutritional; endocrine; and metabolic disorders (9 sources) Obesity; Translations: [Obesity, unspecified] Chronic Other nutritional; endocrine; and metabolic disorders (18 sources) Body mass index 30+ - obesity; Translations: [Body mass index 31.0-31.9, adult] Onset: 01-10-2018 Chronic Other nutritional; endocrine; and metabolic disorders (9 sources) Severe obesity; Translations: [Morbid (severe) obesity due to excess calories] Chronic Residual codes; unclassified (9 sources) Immunization refused ; Translations: [Immunization not carried out because of patient refusal] Episodic Septicemia (except in labor) (4 sources) Sepsis, unspecified organism; Translations: [Sepsis due to Escherichia coli [E. coli]] Onset: 06-27-2022 Episodic Sprains and strains (2 sources) Strain of muscle(s) and tendon(s) of the rotator cuff of left shoulder, initial encounter Episodic Unclassified (2 sources) Unknown / UNK(Unknown) Onset: 01-26-2017 Unclassified (1 source) CONTACT W/AND (SUSP) EXPOS COVID-19; Translations: [CONTACT W/AND (SUSP) EXPOS COVID-19] Onset: 07-16-2022 Unclassified (1 source) Pain in left shoulder; Translations: [Pain in left shoulder] Onset: 04-06-2023 Urinary tract infections (15 sources) Tubulo-interstitial nephritis, not specified as acute or chronic; Translations: [Acute pyelonephritis] Onset: 07-11-2022 Episodic Past or Other Problems Problem Classification Problem Date Documented Da te Episodic/Chronic Deficiency and other anemia (9 sources) Anemia; Translations: [Anemia, unspecified] Resolved: 08-05-2021 Episodic Genitourinary symptoms and ill-defined conditions (9 sources) Disorder of the urinary system; Translations: [Personal history of other disorder of urinary system] Onset: 08-23-2015 Episodic Immunizations and screening for infectious disease (9 sources) Vaccination given; Translations: [Encounter for immunization] Onset: 01-06-2017 Episodic Other circulatory disease (9 sources) Elevated blood-pressure reading without diagnosis of hypertension; Translations: [Elevated blood-pressure reading, without diagnosis of hypertension] Onset: 05-22-2014 Episodic Other connective tissue disease (9 sources) Impingement syndrome of shoulder region; Translations: [Impingement syndrome of right shoulder] Onset: 09-04-2014 Resolved: 02-04-2021 Episodic Other eye disorders (9 sources) Retained foreign body of eyelid; Translations: [...] Onset: 03-21-2022 Episodic Other non-traumatic joint disorders (9 sources) Arthralgia of the pelvic region and thigh; Translations: [Pain in joint, pelvic region and thigh] Onset: 09-04-2014 Episodic Other screening for suspected conditions (not mental disorders or infectious disease) (1 source) Encounter for screening for malignant neoplasm of prostate; Translations: [ENC SCREEN MALIG NEOPLASM PROSTATE] Onset: 02-17-2022 Episodic Other upper respiratory infections (9 sources) Acute sinusitis; Translations: [Acute sinusitis, unspecified] Onset: 11-08-2014 Episodic Residual codes; unclassified (9 sources) Edema; Translations: [Edema] Onset: 02-19-2016 Episodic Results Test Name Value Interpretation Reference Range Facility Office Visiton 09-28-2023 Follow-up visit [id number] Mendez Amaro in E 1950 M Date Provider Department Center 09/28/2023 [facility] [place]JORDON HERNANDEZ [facility]ARD [facility] Family History Problem Relation Age of Onset Heart attack Father Family Status - Relation Status Age at Father Level of Service:04185 [place] OFFICE/OUTPATIENT ESTABLISHED MOD MDM 30 MIN Normal [facility] XR shoulder LT min 2V*on XR shoulder LT min 2V* [facility] [place] [address] XRay Report Signed Patient: Bonifacio Amaro MR#: [id number] : 1950 Acct:[id number] Age/Sex: 72 / M ADM Date: 04/06/23 Loc: [facility] Room: Type: [facility] CLI Attending Dr: Francisco Javier Camacho DO Copies [...] Baljit Zavala M.D.04/06/2023 2:15 PM Dictation Location: [place] [address] Transcribed By: [facility] 04/06/23 1415 Dictated By: Baljit Zavala DO 04/06/23 1405 Signed By: 04/06/23 1415 [facility] Office Visiton 03-30-2023 Follow-up visit [id number] ArielDejah mannv in E 1950 M Date Provider Department Center 03/30/2023 MADIE GLORIA [facility] Family History Problem Relation Age of Onset Heart attack Father Family Status - Relation Status Age at Father Level of Service:19793 [place] OFFICE/OUTPATIENT ESTABLISHED LOW MDM 20 MIN Normal [facility] CBC AUTO DIFFon 07-11-2022 BASO # 0.0 103/ul Normal 0.0-0.1 [facility] Comment on above: Performed By: #### R SPLUS #### [facility] [address] [address] [address] Tomasz Patel Basophils/100 WBC (Bld) 0.6 % Normal 0.2-2.0 [facility] Comment on above: Performed By: #### R SPLUS #### [facility] [address] [place] [address] Dr. Tomasz Patel EO # 0.0 103/ul Normal 0.0-0.7 [facility] Comment on above: Performed By: #### R SPLUS #### [facility] [address] [place] [address] Dr. Tomasz Patel Eosinophils/100 WBC (Bld) 0.6 % Critically low 0.9-7.0 [facility] Comment on above: Performed By: #### R SPLUS #### [facility] [address] [place] [address] Dr. Tomasz Patel Erythrocyte distribution width (RBC) [Ratio] 13.6 % Normal 11.0-15.0 [facility] Comment on above: Performed By: #### R SPLUS #### [facility] [address] [place] [address] Dr. Tomasz Patel Hematocrit (Bld) [Volume fraction] 44.5 % Normal 42.0-54.0 [facility] Comment on above: Performed By: #### R SPLUS #### [facility] [address] [place] [address] Dr. Tomasz Patel Hemoglobin (Bld) [Mass/Vol] 14.7 g/dL Normal 14.0-18.0 [facility] Comment on above: Performed By: #### R SPLUS #### [facility] [address] [place] [address] Dr. Tomasz Patel IG # 0.03 10e3/ul Normal 0.00-0.03 [facility] Comment on above: Performed By: #### R SPLUS #### [facility] [address] [place] [address] Dr. Tomasz Patel IG % 0.6 % Critically high 0.0-0.5 [facility] Comment on above: Performed By: #### R SPLUS #### [facility] [address] [place] [address] Dr. Tomasz Patel LYMPH # 1.1 103/ul Critically low 1.2-3.8 [facility] Comment on above: Performed By: #### R SPLUS #### [facility] [address] [place] [address] Dr. Tomasz Patel Lymphocytes/100 WBC (Bld) 21.1 % Normal 20.5-60.0 [facility] Comment on above: Performed By: #### R SPLUS #### [facility] [address] [place] [address] Dr. Tomasz Patel MANUAL DIFF REQ NO Normal [facility] Comment on above: Performed By: #### R SPLUS #### [facility] [address] [place] [address] Dr. Tomasz Patel MCH (RBC) [Entitic mass] 28.7 pg Normal 25.9-34.0 [facility] Comment on above: Performed By: #### R SPLUS #### [facility] [address] [place] [address] Dr. Tomasz Patel MCHC (RBC) [Mass/Vol] 33.0 g/dL Normal 29.9-35.2 [facility] Comment on above: Performed By: #### R SPLUS #### [facility] [address] [place] [address] Dr. Tomasz Patel MCV (RBC) [Entitic vol] 86.7 fL Normal 80.0-94.0 [facility] Comment on above: Performed By: #### R SPLUS #### [facility] [address] [place] [address] Dr. Tomasz Patel MONO # 0.5 103/ul Normal 0.3-0.8 [facility] Comment on above: Performed By: #### R SPLUS #### [facility] [address] [place] [address] Dr. Tomasz Patel Monocytes/100 WBC (Bld) 10.5 % Normal 1.7-12.0 [facility] Comment on above: Performed By: #### R SPLUS #### [facility] [address] [place] [address] Dr. Tomasz Patel NEUT # 3.4 103/ul Normal 1.4-6.5 [facility] Comment on above: Performed By: #### R SPLUS #### [facility] [address] [address] [address] Tomasz Patel Neutrophils/100 WBC (Bld) 66.6 % Normal 43.0-75.0 [facility] Comment on above: Performed By: #### R SPLUS #### [facility] [address] [address] [address] Tomasz Patel Platelet mean volume (Bld) [Entitic vol] 10.4 fL Normal 9.5-13.5 [facility] Comment on above: Performed By: #### R SPLUS #### [facility] [address] [address] [address] Tomasz Patel PLT 174 103/ul Normal 150-450 [facility] Comment on above: Performed By: #### R SPLUS #### [facility] [address] [address] [address] Tomasz Patel RBC 5.13 106/ul Normal 4.70-6.10 [facility] Comment on above: Performed By: #### R SPLUS #### [facility] [address] [address] [address] Tomasz Patel WBC 5.1 103/ul Normal 4.0-11.0 [facility] Comment on above: Performed By: #### R SPLUS #### [facility] [address] [address] [address] Tomasz Patel CULTURE URINEon 07-11-2022 CULTURE URINE Culture Observations : NO GROWTH. Normal [facility] Comment on above: Performed By: #### C MP, BNP, HSTROPN #### [facility] [address] [address] [address] Tomasz Patel PROF CHEM 8 (BAS METB)on Anion gap [Moles/Vol] 12.8 mmol/L Normal [facility] Comment on above: Performed By: #### B MP #### [facility] [address] [place] [address] Dr. Tomasz Patel Calcium [Mass/Vol] 8.9 mg/dL Normal 8.5-10.1 [facility] Comment on above: Performed By: #### B MP #### [facility] [address] [place] [address] Dr. Tomasz Patel Chloride [Moles/Vol] 104 mmol/L Normal 98-107 [facility] Comment on above: Performed By: #### B MP #### [facility] [address] [address] [address] Tomasz Patel CO2 [Moles/Vol] 23.6 mmol/L Normal 21.0-32.0 [facility] Comment on above: Performed By: #### B MP #### [facility] [address] [place] [address] Dr. Tomasz Patel Creatinine [Mass/Vol] 0.95 mg/dL Normal 0.70-1.30 [facility] Comment on above: Performed By: #### B MP #### [facility] [address] [place] [address] Dr. Tomasz Patel EGFR-AF ERITREAN >60 Normal >=60 [facility] Comment on above: Performed By: #### B MP #### [facility] [address] [place] [address] Dr. Tomasz Patel EGFR-NON AF ERITREAN >60 Normal >=60 [facility] Comment on above: Performed By: #### B MP #### [facility] [address] [place] [address] Dr. Tomasz Patel Glucose [Mass/Vol] 146 mg/dL Critically high 74-106 [facility] Comment on above: Performed By: #### B MP #### [facility] [address] [place] [address] Dr. Tomasz Patel Potassium [Moles/Vol] 4.4 mmol/L Normal 3.5-5.1 [facility] Comment on above: Performed By: #### B MP #### [facility] [address] [place] [address] Dr. Tomasz Patel Sodium [Moles/Vol] 136 mmol/L Normal 136-145 [facility] Comment on above: Performed By: #### B MP #### [facility] [address] [address] [address] Tomasz Patel Urea nitrogen [Mass/Vol] 24.0 mg/dL Critically high 7.0-18.0 [facility] Comment on above: Performed By: #### B MP #### [facility] [address] [address] [address] Tomasz Patel Urea nitrogen/Creatinine [Mass ratio] 25.3 mg/mg Normal [facility] Comment on above: Performed By: #### B MP #### [facility] [address] [address] [address] Tomasz Patel CULTURE URINEon 06-29-2022 CULTURE [...] Trimethoprim/Sulfameth oxazole <=20 S F Normal [facility] Comment on above: Performed By: #### C MP, BNP, HSTROPN #### [facility] [address] [place] [address] Dr. Tomasz Patel CBC W MANUAL DIFFon 06-29-19 23 ATYPICAL LYMPH # 0.12 103/ul Normal [facility] Comment on above: Performed By: #### C EMERITA #### [facility] [address] [place] [address] Dr. Tomasz Patel ATYPICAL LYMPH % 3 % Normal [facility] Comment on above: Performed By: #### C EMERITA #### [facility] [address] [place] [address] Dr. Tomasz Patel BAND # 0.0 103/ul Normal 0.0-0.3 [facility] Comment on above: Performed By: #### C BCMAN #### [facility] [address] [place] [address] Dr. Tomasz Patel BAND % 0 % Normal 0-5 [facility] Comment on above: Performed By: #### C BCMAN #### [facility] [address] [place] [address] Dr. Tomasz Patel BASOM # 0.04 103/ul Normal 0.00-0.10 [facility] Comment on above: Performed By: #### C BCJUAN RAMON #### [facility] [address] [place] [address] Dr. Tomasz Patel BASOM % 1.0 % Normal 0.2-2.0 [facility] Comment on above: Performed By: #### C BCJUAN RAMON #### [facility] [address] [place] [address] Dr. Tomasz Patel BLAST # Normal [facility] Comment on above: Performed By: #### C EMERITA #### [facility] [address] [place] [address] Dr. Tomasz Patel BLAST % Normal [facility] Comment on above: Performed By: #### C BCJUAN RAMON #### [facility] [address] [place] [address] Dr. Tomasz Patel CORRECTED WBC Normal 4.0-11.0 [facility] Comment on above: Performed By: #### C BCJUAN RAMON #### [facility] [address] [place] [address] Dr. Tomasz Patel EOS # 0.04 103/ul Normal 0.00-0.70 [facility] Comment on above: Performed By: #### C BCJUAN RAMON #### [facility] [address] [place] [address] Dr. Tomasz Patel EOS% 1.0 % Normal 0.9-7.0 [facility] Comment on above: Performed By: #### C BCJUAN RAMON #### [facility] [address] [place] [address] Dr. Tomasz Patel HCT 38.5 % Critically low 42.0-54.0 [facility] Comment on above: Performed By: #### C BCJUAN RAMON #### [facility] [address] [address] [address] Tomasz Patel HGB 12.7 g/dl Critically low 14.0-18.0 [facility] Comment on above: Performed By: #### C BCJUAN RAMON #### [facility] [address] [address] [address] Tomasz Patel LYMPHM # 0.40 103/ul Critically low 1.20-3.80 [facility] Comment on above: Performed By: #### C BCJUAN RAMON #### [facility] [address] [address] [address] Tomasz Patel LYMPHM% 10.0 % Critically low 20.5-60.0 [facility] Comment on above: Performed By: #### C EMERITA #### [facility] [address] [address] [address] Tomasz Patel MCH 29.3 pg Normal 25.9-34.0 [facility] Comment on above: Performed By: #### C EMERITA #### [facility] [address] [address] [address] Tomasz Patel MCHC 33.0 g/dl Normal 29.9-35.2 [facility] Comment on above: Performed By: #### C EMERITA #### [facility] [address] [address] [address] Tomasz Patel MCV 88.7 fL Normal 80.0-94.0 [facility] Comment on above: Performed By: #### C BCJUAN RAMON #### [facility] [address] [address] Dr. Tomasz Patel METAMYELOCYTE # Normal [facility] Comment on above: Performed By: #### C BCJUAN RAMON #### [facility] [address] [address] [address] Tomasz Patel METAMYELOCYTE % Normal [facility] Comment on above: Performed By: #### C EMERITA #### [facility] [address] [address] [address] Tomasz Patel MONOM# 0.20 103/ul Critically low 0.30-0.80 [facility] Comment on above: Performed By: #### C EMERITA #### [facility] [address] [place] [address] Dr. Tomasz Patel MONOM% 5.0 % Normal 1.7-12.0 [facility] Comment on above: Performed By: #### C EMERITA #### [facility] [address] [place] [address] Dr. Tomasz Patel MPV 10.8 fL Normal 9.5-13.5 [facility] Comment on above: Performed By: #### C EMERITA #### [facility] [address] [place] [address] Dr. Tomasz Patel MYELOCYTE # Normal [facility] Comment on above: Performed By: #### C EMERITA #### [facility] [address] [place] [address] Dr. Tomasz Patel MYELOCYTE % Normal [facility] Comment on above: Performed By: #### C EMERITA #### [facility] [address] [place] [address] Dr. Tomasz Patel NRBC Normal [facility] Comment on above: Performed By: #### C EMERITA #### [facility] [address] [place] [address] Dr. Tomasz Ptael PLT 113 103/ul Critically low 150-450 [facility] Comment on above: Performed By: #### C EMERITA #### [facility] [address] [place] [address] Dr. Tomasz Patel RBC 4.34 106/ul Critically low 4.70-6.10 [facility] Comment on above: Performed By: #### C EMERITA #### [facility] [address] [place] [address] Dr. Tomasz Patel RDW 13.7 % Normal 11.0-15.0 [facility] Comment on above: Performed By: #### C EMERITA #### [facility] [address] [place] [address] Dr. Tomasz Patel SEG # 3.20 103/ul Normal 1.40-6.50 [facility] Comment on above: Performed By: #### C CHELAMAN #### [facility] [address] [place] [address] Dr. Tomasz Patel SEG % 80.0 % Critically high 43.0-75.0 [facility] Comment on above: Performed By: #### C CHELAMAN #### [facility] [address] [place] [address] Dr. Tomasz Patel WBC 4.0 103/ul Normal 4.0-11.0 [facility] Comment on above: Performed By: #### C EMERITA #### [facility] [address] [place] [address] Dr. Tomasz Patel PROF 14(COMP METB)on 023 Albumin [Mass/Vol] 2.7 g/dL Critically low 3.4-5.[address] [facility] Comment on above: Performed By: #### C MP #### [facility] [address] [place] [address] Dr. Tomasz Patel Albumin/Globulin [Mass ratio] 0.8 {ratio} Normal [facility] Comment on above: Performed By: #### C MP #### [facility] [address] [place] [address] Dr. Tomasz Patel ALP [Catalytic activity/Vol] 50 U/L Normal 46-116 [facility] Comment on above: Performed By: #### C MP #### [facility] [address] [place] [address] Dr. Tomasz Patel ALT [Catalytic activity/Vol] 21 U/L Normal 16-63 [facility] Comment on above: Performed By: #### C MP #### [facility] [address] [place] [address] Dr. Tomasz Patel Anion gap [Moles/Vol] 12.9 mmol/L Normal [facility] Comment on above: Performed By: #### C MP #### [facility] [address] [place] [address] Dr. Tomasz Patel AST [Catalytic activity/Vol] 20 U/L Normal 15-37 [facility] Comment on above: Performed By: #### C MP #### [facility] [address] [address] [address] Tomasz Patel Bilirubin [Mass/Vol] 0.6 mg/dL Normal 0.2-1.0 [facility] Comment on above: Performed By: #### C MP #### [facility] [address] [address] [address] Tomasz Patel Calcium [Mass/Vol] 8.4 mg/dL Critically low 8.5-10.1 Th [facility] Comment on above: Performed By: #### C MP #### [facility] [address] [place] [address] Dr. Tomasz Patel Chloride [Moles/Vol] 107 mmol/L Normal 98-107 [facility] Comment on above: Performed By: #### C MP #### [facility] [address] [place] [address] Dr. Tomasz Patel CO2 [Moles/Vol] 23.1 mmol/L Normal 21.0-32.0 [facility] Comment on above: Performed By: #### C MP #### [facility] [address] [place] [address] Dr. Tomasz Patel Creatinine [Mass/Vol] 0.92 mg/dL Normal 0.70-1.30 [facility] Comment on above: Performed By: #### C MP #### [facility] [address] [place] [address] Dr. Tomasz Patel EGFR-AF ERITREAN >60 Normal >=60 [facility] Comment on above: Performed By: #### C MP #### [facility] [address] [place] [address] Dr. Tomasz Patel EGFR-NON AF ERITREAN >60 Normal >=60 [facility] Comment on above: Performed By: #### C MP #### [facility] [address] [place] [address] Dr. Tomasz Patel Globulin (S) [Mass/Vol] 3.6 g/dL Normal [facility] Comment on above: Performed By: #### C MP #### [facility] [address] [address] [address] Tomasz Patel Glucose [Mass/Vol] 124 mg/dL Critically high 74-106 [facility] Comment on above: Performed By: #### C MP #### [facility] [address] [address] [address] Tomasz Patel Potassium [Moles/Vol] 4.0 mmol/L Normal 3.5-5.1 [facility] Comment on above: Performed By: #### C MP #### [facility] [address] [address] [address] Tomasz Patel Protein [Mass/Vol] 6.3 g/dL Critically low 6.4-8.[address] [facility] Comment on above: Performed By: #### C MP #### [facility] [address] [address] [address] Tomasz Patel Sodium [Moles/Vol] 139 mmol/L Normal 136-145 [facility] Comment on above: Performed By: #### C MP #### [facility] [address] [address] [address] Tomasz Patel Urea nitrogen [Mass/Vol] 16.0 mg/dL Normal 7.0-18.0 [facility] Comment on above: Performed By: #### C MP #### [facility] [address] [address] [address] Tomasz Patel Urea nitrogen/Creatinine [Mass ratio] 17.4 mg/mg Normal [facility] Comment on above: Performed By: #### C MP #### [facility] [address] [address] [address] Tomasz Patel CBC AUTO DIFFon 06-27-2022 BASO # 0.0 103/ul Normal 0.0-0.1 [facility] Comment on above: Performed By: #### C BC #### [facility] [address] [address] [address] Tomasz Patel Basophils/100 WBC (Bld) 0.3 % Normal 0.2-2.0 [facility] Comment on above: Performed By: #### C BC #### [facility] [address] [place] [address] Dr. Tomasz Patel EO # 0.0 103/ul Normal 0.0-0.7 [facility] Comment on above: Performed By: #### C BC #### [facility] [address] [place] [address] Dr. Tomasz Patel Eosinophils/100 WBC (Bld) 0.4 % Critically low 0.9-7.0 [facility] Comment on above: Performed By: #### C BC #### [facility] [address] [place] [address] Dr. Tomasz Patel Erythrocyte distribution width (RBC) [Ratio] 13.9 % Normal 11.0-15.0 [facility] Comment on above: Performed By: #### C BC #### [facility] [address] [place] [address] Dr. Tomasz Patel Hematocrit (Bld) [Volume fraction] 39.5 % Critically low 42.0-54.0 [facility] Comment on above: Performed By: #### C BC #### [facility] [address] [place] [address] Dr. Tomasz Patel Hemoglobin (Bld) [Mass/Vol] 13.1 g/dL Critically low 14.0-18.0 [facility] Comment on above: Performed By: #### C BC #### [facility] [address] [place] [address] Dr. Tomasz Patel IG # 0.01 10e3/ul Normal 0.00-0.03 [facility] Comment on above: Performed By: #### C BC #### [facility] [address] [place] [address] Dr. Tomasz Patel IG % 0.1 % Normal 0.0-0.5 [facility] Comment on above: Performed By: #### C BC #### [facility] [address] [place] [address] Dr. Tomasz Patel LYMPH # 0.5 103/ul Critically low 1.2-3.8 [facility] Comment on above: Performed By: #### C BC #### [facility] [address] [place] [address] Dr. Tomasz Patel Lymphocytes/100 WBC (Bld) 6.6 % Critically low 20.5-60.0 [facility] Comment on above: Performed By: #### C BC #### [facility] [address] [address] [address] Tomasz Patel MANUAL DIFF REQ NO Normal [facility] Comment on above: Performed By: #### C BC #### [facility] [address] [place] [address] Dr. Tomasz Patel MCH (RBC) [Entitic mass] 29.2 pg Normal 25.9-34.0 [facility] Comment on above: Performed By: #### C BC #### [facility] [address] [place] [address] Dr. Tomasz Patel MCHC (RBC) [Mass/Vol] 33.2 g/dL Normal 29.9-35.2 [facility] Comment on above: Performed By: #### C BC #### [facility] [address] [place] [address] Dr. Tomasz Patel MCV (RBC) [Entitic vol] 88.0 fL Normal 80.0-94.0 [facility] Comment on above: Performed By: #### C BC #### [facility] [address] [place] [address] Dr. Tomasz Patel MONO # 0.6 103/ul Normal 0.3-0.8 [facility] Comment on above: Performed By: #### C BC #### [facility] [address] [place] [address] Dr. Tomasz Patel Monocytes/100 WBC (Bld) 8.4 % Normal 1.7-12.0 [facility] Comment on above: Performed By: #### C BC #### [facility] [address] [place] [address] Dr. Tomasz Patel NEUT # 5.7 103/ul Normal 1.4-6.5 [facility] Comment on above: Performed By: #### C BC #### [facility] [address] [address] [address] Tomasz Patel Neutrophils/100 WBC (Bld) 84.2 % Critically high 43.0-75.0 [facility] Comment on above: Performed By: #### C BC #### [facility] [address] [address] [address] Tomasz Patel Platelet mean volume (Bld) [Entitic vol] 10.4 fL Normal 9.5-13.5 [facility] Comment on above: Performed By: #### C BC #### [facility] [address] [address] [address] Tomasz Patel PLT 127 103/ul Critically low 150-450 [facility] Comment on above: Performed By: #### C BC #### [facility] [address] [address] [address] Tomasz Patel RBC 4.49 106/ul Critically low 4.70-6.10 [facility] Comment on above: Performed By: #### C BC #### [facility] [address] [address] [address] Tomasz Patel WBC 6.8 103/ul Normal 4.0-11.0 [facility] Comment on above: Performed By: #### C BC #### [facility] [address] [place] [address] ABD/PELVIS WO CONon [...] ALFREDO GODWIN Date: 2022-06-27 00:44 Normal [facility] CULTURE BLOODon 06-27-2022 Microscopic examination of blood, culture Culture Observations: NO GROWTH AT 5 DAYS. Normal [facility] Comment on above: Performed By: #### C MP, BNP, HSTROPN #### [facility] [address] [address] [address] Tomasz Patel ER URINE PROFILEon 3 Bilirubin Ql (U) Negative Normal NEGATIVE [facility] Comment on above: Performed By: #### C MP, BNP, HSTROPN #### [facility] [address] [address] [address] Tomasz Patel Clarity (U) CLEAR Normal CLEAR [facility] Comment on above: Performed By: #### C MP, BNP, HSTROPN #### [facility] [address] [address] [address] Tomasz Patel Color (U) YELLOW Normal YELLOW [facility] Comment on above: Performed By: #### C MP, BNP, HSTROPN #### [facility] [address] [address] [address] Tomasz BIGGS A micrscopic examination will be performed if indicated. Normal [facility] Comment on above: Performed By: #### C MP, BNP, HSTROPN #### [facility] [address] [address] [address] Tomasz Patel Glucose Ql (U) Negative Normal NEGATIVE [facility] Comment on above: Performed By: #### C MP, BNP, HSTROPN #### [facility] [address] [address] [address] Tomasz Patel Hemoglobin Ql (U) MODERATE Abnormal NEGATIVE [facility] Comment on above: Performed By: #### C MP, BNP, HSTROPN #### [facility] [address] [place] [address] Dr. Tomasz Patel Ketones Ql (U) Negative Normal NEGATIVE [facility] Comment on above: Performed By: #### C MP, BNP, HSTROPN #### [facility] [address] [address] [address] Tomasz Patel LEUKOCYTES TRACE Abnormal NEGATIVE [facility] Comment on above: Performed By: #### C MP, BNP, HSTROPN #### [facility] [address] [address] [address] Tomasz Patel Nitrite Ql (U) Positive Abnormal NEGATIVE [facility] Comment on above: Performed By: #### C MP, BNP, HSTROPN #### [facility] [address] [address] [address] Tomasz Patel pH (U) 6.0 [pH] Normal 5-9 [facility] Comment on above: Performed By: #### C MP, BNP, HSTROPN #### [facility] [address] [address] [address] Tomasz Patel Protein (U) [Mass/Vol] 30 mg/dL Abnormal NEGATIVE/ TRACE [facility] Comment on above: Performed By: #### C MP, BNP, HSTROPN #### [facility] [address] [place] [address] Dr. Tomasz Patel SPEC GRAVITY 1.025 Normal 1.005-<=1.025 [facility] Comment on above: Performed By: #### C MP, BNP, HSTROPN #### [facility] [address] [place] [address] Dr. Tomasz Patel UR MICRO IND INDICATED Normal [facility] Comment on above: Performed By: #### C MP, BNP, HSTROPN #### [facility] [address] [place] [address] Dr. Tomasz Patel Urobilinogen Qn (U) 1.0 {Juan'U}/dL Normal 0.2 - 1. 0 [facility] Comment on above: Performed By: #### C MP, BNP, HSTROPN #### [facility] [address] [place] [address] Dr. Tomasz Patel LACTATE/LACTIC ACIDon 2022 Lactate [Moles/Vol] 0.9 mmol/L Normal 0.4-2.0 [facility] Comment on above: Performed By: #### C MP, BNP, HSTROPN #### [facility] [address] [place] [address] Dr. Tomasz Patel Lactate [Moles/Vol] 1.2 mmol/L Normal 0.4-2.0 [facility] Comment on above: Performed By: #### C MP, BNP, HSTROPN #### [facility] [address] [place] [address] Dr. Tomasz Patel Lactate [Moles/Vol] 1.2 mmol/L Normal 0.4-2.0 [facility] Comment on above: Performed By: #### C MP, BNP, HSTROPN #### [facility] [address] [place] [address] Dr. Tomasz Patel MAGNESIUMon 06-27-2022 Magnesium [Mass/Vol] 1.6 mg/dL Critically low 1.8-2.4 [facility] Comment on above: Performed By: #### C MP, BNP, HSTROPN #### [facility] [address] [address] [address] Tomasz Patel PROF 14(COMP METB)on 023 Albumin [Mass/Vol] 2.7 g/dL Critically low 3.4-5.0 [facility] Comment on above: Performed By: #### C MP #### [facility] [address] [place] [address] Dr. Tomasz Patel Albumin/Globulin [Mass ratio] 0.8 {ratio} Normal [facility] Comment on above: Performed By: #### C MP #### [facility] [address] [place] [address] Dr. Tomasz Patel ALP [Catalytic activity/Vol] 54 U/L Normal 46-116 [facility] Comment on above: Performed By: #### C MP #### [facility] [address] [place] [address] Dr. Tomasz Patel ALT [Catalytic activity/Vol] 28 U/L Normal 16-63 [facility] Comment on above: Performed By: #### C MP #### [facility] [address] [place] [address] Dr. Tomasz Patel Anion gap [Moles/Vol] 8.4 mmol/L Normal [facility] Comment on above: Performed By: #### C MP #### [facility] [address] [place] [address] Dr. Tomasz Patel AST [Catalytic activity/Vol] 19 U/L Normal 15-37 [facility] Comment on above: Performed By: #### C MP #### [facility] [address] [place] [address] Dr. Tomasz Patel Bilirubin [Mass/Vol] 1.0 mg/dL Normal 0.2-1.0 [facility] Comment on above: Performed By: #### C MP #### [facility] [address] [place] [address] Dr. Tomasz Patel Calcium [Mass/Vol] 8.1 mg/dL Critically low 8.5-10.1 [facility] Comment on above: Performed By: #### C MP #### [facility] [address] [address] [address] Tomasz Patel Chloride [Moles/Vol] 107 mmol/L Normal 98-107 [facility] Comment on above: Performed By: #### C MP #### [facility] [address] [address] [address] Tomasz Patel CO2 [Moles/Vol] 26.5 mmol/L Normal 21.0-32.0 [facility] Comment on above: Performed By: #### C MP #### [facility] [address] [address] [address] Tomasz Patel Creatinine [Mass/Vol] 1.19 mg/dL Normal 0.70-1.30 [facility] Comment on above: Performed By: #### C MP #### [facility] [address] [place] [address] Dr. Tomasz Patel EGFR-AF ERITREAN >60 Normal >=60 [facility] Comment on above: Performed By: #### C MP #### [facility] [address] [address] [address] Tomasz Patel EGFR-NON AF ERITREAN 60 mL/min/1.73m2 Normal >=60 [facility] Comment on above: Performed By: #### C MP #### [facility] [address] [address] [address] Tomasz Patel Globulin (S) [Mass/Vol] 3.6 g/dL Normal [facility] Comment on above: Performed By: #### C MP #### [facility] [address] [address] [address] Tomasz Patel Glucose [Mass/Vol] 121 mg/dL Critically high 74-106 T [facility] Comment on above: Performed By: #### C MP #### [facility] [address] [address] [address] Tomasz Patel Potassium [Moles/Vol] 3.9 mmol/L Normal 3.5-5.1 [facility] Comment on above: Performed By: #### C MP #### [facility] [address] [address] [address] Tomasz Patel Protein [Mass/Vol] 6.3 g/dL Critically low 6.4-8.2 Th [facility] Comment on above: Performed By: #### C MP #### [facility] [address] [place] [address] Dr. Tomasz Patel Sodium [Moles/Vol] 138 mmol/L Normal 136-145 [facility] Comment on above: Performed By: #### C MP #### [facility] [address] [place] [address] Dr. Tomasz Patel Urea nitrogen [Mass/Vol] 21.0 mg/dL Critically high 7.0-18.0 [facility] Comment on above: Performed By: #### C MP #### [facility] [address] [place] [address] Dr. Tomasz Patel Urea nitrogen/Creatinine [Mass ratio] 17.6 mg/mg Normal [facility] Comment on above: Performed By: #### C MP #### [facility] [address] [place] [address] Dr. Tomasz Patel URINE MICROSCOPIC ONLYon BACTERIA LARGE Abnormal NONE SEEN [facility] Comment on above: Performed By: #### R SPLUS #### [facility] [address] [place] [address] Dr. Tomasz Patel Bacteria identified Cx Nom (U) INDICATED Normal [facility] Comment on above: Performed By: #### R SPLUS #### [facility] [address] [place] [address] Dr. Tomasz Patel CAST NONE SEEN Normal NONE SEEN [facility] Comment on above: Performed By: #### R SPLUS #### [facility] [address] [place] [address] Dr. Tomasz Patel Crystals LM Nom (Urine sed) NONE SEEN Normal NONE SEEN [facility] Comment on above: Performed By: #### R SPLUS #### [facility] [address] [place] [address] Dr. Tomasz Patel Epithelial cells LM Ql (Urine sed) NONE SEEN Normal NONE SEEN /RARE [facility] Comment on above: Performed By: #### R SPLUS #### [facility] [address] [place] [address] Dr. Tomasz Patel MUCOUS NONE SEEN Normal NONE SEEN [facility] Comment on above: Performed By: #### R SPLUS #### [facility] [address] [place] [address] Dr. Tomasz Patel RBC 10-20 Abnormal 0-2 [facility] Comment on above: Performed By: #### R SPLUS #### [facility] [address] [place] [address] Dr. Tomasz Patel WBC 20-50 Abnormal NONE SEEN [facility] Comment on above: Performed By: #### R SPLUS #### [facility] [address] [place] [address] Dr. Tomasz Patel XR CHEST 1 Von [...] ALFREDO GODWIN Date: 2022-06-26 23:22 Normal [facility] BNPon 06-26-2022 Natriuretic peptide B (Bld) [Mass/Vol] 283.0 pg/mL Normal <=900.0 [facility] Comment on above: Performed By: #### C MP, BNP, HSTROPN #### [facility] [address] [place] [address] Dr. Tomasz Patel CBC AUTO DIFFon 06-26-2022 BASO # 0.0 103/ul Normal 0.0-0.1 [facility] Comment on above: Performed By: #### C MP, BNP, HSTROPN #### [facility] [address] [place] [address] Dr. Tomasz Patel Basophils/100 WBC (Bld) 0.5 % Normal 0.2-2.0 [facility] Comment on above: Performed By: #### C MP, BNP, HSTROPN #### [facility] [address] [place] [address] Dr. Tomasz Patel EO # 0.0 103/ul Normal 0.0-0.7 [facility] Comment on above: Performed By: #### C MP, BNP, HSTROPN #### [facility] [address] [place] [address] Dr. Tomasz Patel Eosinophils/100 WBC (Bld) 0.5 % Critically low 0.9-7.0 [facility] Comment on above: Performed By: #### C MP, BNP, HSTROPN #### [facility] [address] [place] [address] Dr. Tomasz Patel Erythrocyte distribution width (RBC) [Ratio] 13.6 % Normal 11.0-15.0 [facility] Comment on above: Performed By: #### C MP, BNP, HSTROPN #### [facility] [address] [place] [address] Dr. Tomasz Patel Hematocrit (Bld) [Volume fraction] 45.8 % Normal 42.0-54.0 [facility] Comment on above: Performed By: #### C MP, BNP, HSTROPN #### [facility] [address] [place] [address] Dr. Tomasz Patel Hemoglobin (Bld) [Mass/Vol] 15.2 g/dL Normal 14.0-18.0 [facility] Comment on above: Performed By: #### C MP, BNP, HSTROPN #### [facility] Laboratory [address] [place] [address] Dr. Tomasz Patel IG # 0.01 10e3/ul Normal 0.00-0.03 [facility] Comment on above: Performed By: #### C MP, BNP, HSTROPN #### [facility] [address] [place] [address] Dr. Tomasz Patel IG % 0.3 % Normal 0.0-0.5 [facility] Comment on above: Performed By: #### C MP, BNP, HSTROPN #### [facility] [address] [place] [address] Dr. Tomasz Patel LYMPH # 0.4 103/ul Critically low 1.2-3.8 [facility] Comment on above: Performed By: #### C MP, BNP, HSTROPN #### [facility] [address] [place] [address] Dr. Tomasz Patel Lymphocytes/100 WBC (Bld) 10.5 % Critically low 20.5-60.0 [facility] Comment on above: Performed By: #### C MP, BNP, HSTROPN #### [facility] [address] [place] [address] Dr. Tomasz Patel MANUAL DIFF REQ NO Normal [facility] Comment on above: Performed By: #### C MP, BNP, HSTROPN #### [facility] [address] [place] [address] Dr. Tomasz Patel MCH (RBC) [Entitic mass] 29.1 pg Normal 25.9-34.0 [facility] Comment on above: Performed By: #### C MP, BNP, HSTROPN #### [facility] [address] [place] [address] Dr. Tomasz Patel MCHC (RBC) [Mass/Vol] 33.2 g/dL Normal 29.9-35.2 [facility] Comment on above: Performed By: #### C MP, BNP, HSTROPN #### [facility] [address] [place] [address] Dr. Tomasz Patel MCV (RBC) [Entitic vol] 87.7 fL Normal 80.0-94.0 [facility] Comment on above: Performed By: #### C MP, BNP, HSTROPN #### [facility] [address] [place] [address] Dr. Tomasz Patel MONO # 0.1 103/ul Critically low 0.3-0.8 [facility] Comment on above: Performed By: #### C MP, BNP, HSTROPN #### [facility] [address] [place] [address] Dr. Tomasz Patel Monocytes/100 WBC (Bld) 2.3 % Normal 1.7-12.0 [facility] Comment on above: Performed By: #### C MP, BNP, HSTROPN #### [facility] [address] [address] [address] Tomasz Patel NEUT # 3.4 103/ul Normal 1.4-6.5 [facility] Comment on above: Performed By: #### C MP, BNP, HSTROPN #### [facility] [address] [place] [address] Dr. Tomasz Patel Neutrophils/100 WBC (Bld) 85.9 % Critically high 43.0-75.0 [facility] Comment on above: Performed By: #### C MP, BNP, HSTROPN #### [facility] [address] [place] [address] Dr. Tomasz Patel Platelet mean volume (Bld) [Entitic vol] 10.6 fL Normal 9.5-13.5 [facility] Comment on above: Performed By: #### C MP, BNP, HSTROPN #### [facility] [address] [place] [address] Dr. Tomasz Patel PLT 138 103/ul Critically low 150-450 [facility] Comment on above: Performed By: #### C MP, BNP, HSTROPN #### [facility] [address] [place] [address] Dr. Tomasz Patel RBC 5.22 106/ul Normal 4.70-6.10 [facility] Comment on above: Performed By: #### C MP, BNP, HSTROPN #### [facility] [address] [place] [address] Dr. Tomasz Patel WBC 3.9 103/ul Critically low 4.0-11.0 [facility] Comment on above: Performed By: #### C MP, BNP, HSTROPN #### [facility] [address] [place] [address] Dr. Tomasz Patel CULTURE BLOODon 06-26-2022 Microscopic examination of blood, culture Culture Observations: NO GROWTH AT 5 DAYS. Normal [facility] Comment on above: Performed By: #### C MP, BNP, HSTROPN #### [facility] [address] [place] [address] Dr. Tomasz Patel LACTATE/LACTIC ACIDon 2022 Lactate [Moles/Vol] 5.4 mmol/L Critically high 0.4-2.0 [facility] Comment on above: Performed By: #### C MP, BNP, HSTROPN #### [facility] [address] [address] [address] Tomasz Patel PROF 14(COMP METB)on 023 Albumin [Mass/Vol] 3.5 g/dL Normal 3.4-5.0 [facility] Comment on above: Performed By: #### C MP, BNP, HSTROPN #### [facility] [address] [place] [address] Dr. Tomasz Patel Albumin/Globulin [Mass ratio] 0.8 {ratio} Normal [facility] Comment on above: Performed By: #### C MP, BNP, HSTROPN #### [facility] [address] [place] [address] Dr. Tomasz Patel ALP [Catalytic activity/Vol] 73 U/L Normal 46-116 [facility] Comment on above: Performed By: #### C MP, BNP, HSTROPN #### [facility] [address] [place] [address] Dr. Tomasz Patel ALT [Catalytic activity/Vol] 28 U/L Normal 16-63 [facility] Comment on above: Performed By: #### C MP, BNP, HSTROPN #### [facility] [address] [place] [address] Dr. Tomasz Patel Anion gap [Moles/Vol] 15.2 mmol/L Normal [facility] Comment on above: Performed By: #### C MP, BNP, HSTROPN #### [facility] [address] [place] [address] Dr. Tomasz Patel AST [Catalytic activity/Vol] 18 U/L Normal 15-37 [facility] Comment on above: Performed By: #### C MP, BNP, HSTROPN #### [facility] [address] [place] [address] Dr. Tomasz Patel Bilirubin [Mass/Vol] 1.1 mg/dL Critically high 0.2-1.0 [facility] Comment on above: Performed By: #### C MP, BNP, HSTROPN #### [facility] [address] [place] [address] Dr. Tomasz Patel Calcium [Mass/Vol] 9.1 mg/dL Normal 8.5-10.1 [facility] Comment on above: Performed By: #### C MP, BNP, HSTROPN #### [facility] [address] [place] [address] Dr. Tomasz Patel Chloride [Moles/Vol] 102 mmol/L Normal 98-107 [facility] Comment on above: Performed By: #### C MP, BNP, HSTROPN #### [facility] [address] [place] [address] Dr. Tomasz Patel CO2 [Moles/Vol] 23.7 mmol/L Normal 21.0-32.0 [facility] Comment on above: Performed By: #### C MP, BNP, HSTROPN #### [facility] [address] [place] [address] Dr. Tomasz Patel Creatinine [Mass/Vol] 1.43 mg/dL Critically high 0.70-1.30 [facility] Comment on above: Performed By: #### C MP, BNP, HSTROPN #### [facility] [address] [place] [address] Dr. Tomasz Patel EGFR-AF ERITREAN 59 mL/min/1.73m2 Critically low >=60 [facility] Comment on above: Performed By: #### C MP, BNP, HSTROPN #### [facility] [address] [place] [address] Dr. Tomasz Patel EGFR-NON AF ERITREAN 49 mL/min/1.73m2 Critically low >=60 [facility] Comment on above: Performed By: #### C MP, BNP, HSTROPN #### [facility] [address] [place] [address] Dr. Tomasz Patel Globulin (S) [Mass/Vol] 4.3 g/dL Normal [facility] Comment on above: Performed By: #### C MP, BNP, HSTROPN #### [facility] [address] [place] [address] Dr. Tomasz Patel Glucose [Mass/Vol] 141 mg/dL Critically high 74-106 [facility] Comment on above: Performed By: #### C MP, BNP, HSTROPN #### [facility] [address] [place] [address] Dr. Tomasz Patel Potassium [Moles/Vol] 3.9 mmol/L Normal 3.5-5.1 [facility] Comment on above: Performed By: #### C MP, BNP, HSTROPN #### [facility] [address] [place] [address] Dr. Tomasz Patel Protein [Mass/Vol] 7.8 g/dL Normal 6.4-8.2 [facility] Comment on above: Performed By: #### C MP, BNP, HSTROPN #### [facility] [address] [place] [address] Dr. Tomasz Patel Sodium [Moles/Vol] 137 mmol/L Normal 136-145 [facility] Comment on above: Performed By: #### C MP, BNP, HSTROPN #### [facility] [address] [place] [address] Dr. Tomasz Patel Urea nitrogen [Mass/Vol] 22.0 mg/dL Critically high 7.0-18.0 [facility] Comment on above: Performed By: #### C MP, BNP, HSTROPN #### [facility] [address] [place] [address] Dr. Tomasz Patel Urea nitrogen/Creatinine [Mass ratio] 15.4 mg/mg Normal [facility] Comment on above: Performed By: #### C MP, BNP, HSTROPN #### [facility] [address] [place] [address] Dr. Tomasz Patel RESPIRATORY PANEL PLUSon Adenovirus Not detected Normal NOT DETECTED [facility] Comment on above: Performed By: #### R SPLUS #### [facility] [address] [place] [address] Dr. Tomasz Morales Parapertusis Not detected Normal NOT DETECTED [facility] Comment on above: Performed By: #### R SPLUS #### [facility] [address] [place] [address] Dr. Tomasz Morales Pertussis Not detected Normal NOT DETECTED [facility] Comment on above: Performed By: #### R SPLUS #### [facility] [address] [place] [address] Dr. Tomasz Patel Chlamydia Pneumoniae Not detected Normal NOT DETECTED [facility] Comment on above: Performed By: #### R SPLUS #### [facility] [address] [place] [address] Dr. Tomasz Patel Coronavirus 229E Not detected Normal NOT DETECTED [facility] Comment on above: Performed By: #### R SPLUS #### [facility] [address] [place] [address] Dr. Tomasz Patel Coronavirus HKU1 Not detected Normal NOT DETECTED [facility] Comment on above: Performed By: #### R SPLUS #### [facility] [address] [place] [address] Dr. Tomasz Patel Coronavirus NL63 Not detected Normal NOT DETECTED [facility] Comment on above: Performed By: #### R SPLUS #### [facility] [address] [place] [address] Dr. Tomasz Patel Coronavirus OC43 Not detected Normal NOT DETECTED [facility] Comment on above: Performed By: #### R SPLUS #### [facility] [address] [place] [address] Dr. Tomasz Patel Influenza A H1 Not detected Normal NOT DETECTED [facility] Comment on above: Performed By: #### R SPLUS #### [facility] [address] [place] [address] Dr. Tomasz Patel Influenza A H1 2009 Not detected Normal NOT DETECTED [facility] Comment on above: Performed By: #### R SPLUS #### [facility] [address] [place] [address] Dr. Tomasz Patel Influenza A H3 Not detected Normal NOT DETECTED [facility] Comment on above: Performed By: #### R SPLUS #### [facility] [address] [place] [address] Dr. Tomasz Patel Influenza B Not detected Normal NOT DETECTED [facility] Comment on above: Performed By: #### R SPLUS #### [facility] [address] [place] [address] Dr. Tomasz Patel Metapneumovirus Not detected Normal NOT DETECTED [facility] Comment on above: Performed By: #### R SPLUS #### [facility] [address] [place] [address] Dr. Tomasz Patel Mycoplas. Pneumoniae Not detected Normal NOT DETECTED [facility] Comment on above: Performed By: #### R SPLUS #### [facility] [address] [place] [address] Dr. Tomasz Patel Parainfluenza 1 Not detected Normal NOT DETECTED [facility] Comment on above: Performed By: #### R SPLUS #### [facility] [address] [place] [address] Dr. Tomasz Patel Parainfluenza 2 Not detected Normal NOT DETECTED [facility] Comment on above: Performed By: #### R SPLUS #### [facility] [address] [place] [address] Dr. Tomasz Patel Parainfluenza 3 Not detected Normal NOT DETECTED [facility] Comment on above: Performed By: #### R SPLUS #### [facility] [address] [place] [address] Dr. Tomasz Patel Parainfluenza 4 Not detected Normal NOT DETECTED [facility] Comment on above: Performed By: #### R SPLUS #### [facility] [address] [place] [address] Dr. Tomasz Patel Rhino/Enterovirus Not detected Normal NOT DETECTED [facility] Comment on above: Performed By: #### R SPLUS #### [facility] [address] [place] [address] Dr. Tomasz Patel RP2 Header 1 RESPIRATORY PANEL: VIRUSES Normal [facility] Comment on above: Performed By: #### R SPLUS #### [facility] [address] [place] [address] Dr. Tomasz Patel RP2 Header 2 RESPIRATORY PANEL: BACTERIA Normal [facility] Comment on above: Performed By: #### R SPLUS #### [facility] [address] [place] [address] Dr. Tomasz Patel RSV Not detected Normal NOT DETECTED [facility] Comment on above: Performed By: #### R SPLUS #### [facility] [address] [place] [address] Dr. Tomasz Patel SARS-CoV-2 (COVID-19) RNA DARNELL+probe Ql (Unsp spec) Not detected Normal NOT DETECTED [facility] Comment on above: Performed By: #### R SPLUS #### [facility] [address] [place] [address] Dr. Tomasz Patel TROPONIN, HIGH SENSITIVITYon 06-26-2022 HSTROP 10.5 pg/mL Normal 4.0-76.1 [facility] Comment on above: Result Comment: CUT- OFF POINTS HAVE BEEN ESTABLISHED BASED ON THE FOURTH UNIVERSAL DEFINITIONS OF MYOCARDIAL INFARCTION. THE UPPER REFERENCE LIMIT (URL) OF TROPONIN, DEFINED THE 99TH PERCENTILE OF cTnI DISTRIBUTION IN A REFERENCE POPULATION, HAS BEEN CONFIRMED THE DECISION THRESHOLD FOR SD DIAGNOSIS. Performed By: #### C MP, BNP, HSTROPN #### [facility] [address] [place] [address] Dr. Tomasz Patel ECHOCARDIO M/2D COMPLETEon 1 05-19-2021 ECHOCARDIO M/2D COMPLETE Patient: BONIFACIO AMARO Exam Date: 03/18/2022 : 1950 Gender:M Ordering : DR LIZ CORMIER M.D. Admission #: [id number] Family : DR JORDON HERNANDEZ M.D. Order #: [id number] CLICK HERE TO VIEW EXAM ECHOCARDIOGRAM REPORT [...] Hernandez M.D. on 03/25/2022 at 09:10 Normal [facility] STRESS/REST MULTIon 03-18 NM STRESS/REST MULTI Patient: BONIFACIO AMARO Exam Date: 03/18/2022 : 1950 Gender:M Ordering : XIMENA CROFT Admission #: [id number] Family : DR LIZ CORMIER M.D. Order #: [id number] CLICK HERE TO VIEW EXAM RADIOLOGY REPORT [...] MD on 03/20/2022 at 11:43 Normal [facility] CBC AUTO DIFFon 02-11-2022 BASO # 0.0 103/ul Normal 0.0-0.1 [facility] Comment on above: Performed By: #### C MP, BNP, HSTROPN #### [facility] [address] [place] [address] Dr. Tomasz Patel Basophils/100 WBC (Bld) 0.6 % Normal 0.2-2.0 [facility] Comment on above: Performed By: #### C MP, BNP, HSTROPN #### [facility] [address] [place] [address] Dr. Tomasz Patel EO # 0.0 103/ul Normal 0.0-0.7 [facility] Comment on above: Performed By: #### C MP, BNP, HSTROPN #### [facility] [address] [place] [address] Dr. Tomasz Patel Eosinophils/100 WBC (Bld) 0.6 % Critically low 0.9-7.0 [facility] Comment on above: Performed By: #### C MP, BNP, HSTROPN #### [facility] [address] [place] [address] Dr. Tomasz Patel Erythrocyte distribution width (RBC) [Ratio] 13.2 % Normal 11.0-15.0 [facility] Comment on above: Performed By: #### C MP, BNP, HSTROPN #### [facility] [address] [address] [address] Tomasz Patel Hematocrit (Bld) [Volume fraction] 45.0 % Normal 42.0-54.0 [facility] Comment on above: Performed By: #### C MP, BNP, HSTROPN #### [facility] [address] [place] [address] Dr. Tomasz Patel Hemoglobin (Bld) [Mass/Vol] 14.8 g/dL Normal 14.0-18.0 [facility] Comment on above: Performed By: #### C MP, BNP, HSTROPN #### [facility] [address] [place] [address] Dr. Tomasz Patel IG # 0.01 10e3/ul Normal 0.00-0.03 [facility] Comment on above: Performed By: #### C MP, BNP, HSTROPN #### [facility] [address] [place] [address] Dr. Tomasz Patel IG % 0.2 % Normal 0.0-0.5 [facility] Comment on above: Performed By: #### C MP, BNP, HSTROPN #### [facility] [address] [place] [address] Dr. Tomasz Patel LYMPH # 1.1 103/ul Critically low 1.2-3.8 [facility] Comment on above: Performed By: #### C MP, BNP, HSTROPN #### [facility] [address] [place] [address] Dr. Tomasz Patel Lymphocytes/100 WBC (Bld) 20.4 % Critically low 20.5-60.0 [facility] Comment on above: Performed By: #### C MP, BNP, HSTROPN #### [facility] [address] [place] [address] Dr. Tomasz Patel MANUAL DIFF REQ NO Normal [facility] Comment on above: Performed By: #### C MP, BNP, HSTROPN #### [facility] [address] [place] [address] Dr. Tomasz Patel MCH (RBC) [Entitic mass] 29.0 pg Normal 25.9-34.0 [facility] Comment on above: Performed By: #### C MP, BNP, HSTROPN #### [facility] [address] [place] [address] Dr. Tomasz Patel MCHC (RBC) [Mass/Vol] 32.9 g/dL Normal 29.9-35.2 [facility] Comment on above: Performed By: #### C MP, BNP, HSTROPN #### [facility] [address] [place] [address] Dr. Tomasz Patel MCV (RBC) [Entitic vol] 88.1 fL Normal 80.0-94.0 [facility] Comment on above: Performed By: #### C MP, BNP, HSTROPN #### [facility] [address] [place] [address] Dr. Tomasz Patel MONO # 0.5 103/ul Normal 0.3-0.8 [facility] Comment on above: Performed By: #### C MP, BNP, HSTROPN #### [facility] [address] [place] [address] Dr. Tomasz Patel Monocytes/100 WBC (Bld) 8.8 % Normal 1.7-12.0 [facility] Comment on above: Performed By: #### C MP, BNP, HSTROPN #### [facility] [address] [place] [address] Dr. Tomasz Patel NEUT # 3.6 103/ul Normal 1.4-6.5 [facility] Comment on above: Performed By: #### C MP, BNP, HSTROPN #### [facility] [address] [address] [address] Tomasz Patel Neutrophils/100 WBC (Bld) 69.4 % Normal 43.0-75.0 [facility] Comment on above: Performed By: #### C MP, BNP, HSTROPN #### [facility] [address] [address] [address] Tomasz Patel Platelet mean volume (Bld) [Entitic vol] 10.0 fL Normal 9.5-13.5 [facility] Comment on above: Performed By: #### C MP, BNP, HSTROPN #### [facility] [address] [place] [address] Dr. Tomasz Patel PLT 189 103/ul Normal 150-450 [facility] Comment on above: Performed By: #### C MP, BNP, HSTROPN #### [facility] [address] [address] [address] Tomasz Patel RBC 5.11 106/ul Normal 4.70-6.10 [facility] Comment on above: Performed By: #### C MP, BNP, HSTROPN #### [facility] [address] [place] [address] Dr. Tomasz Patel WBC 5.1 103/ul Normal 4.0-11.0 [facility] Comment on above: Performed By: #### C MP, BNP, HSTROPN #### [facility] [address] [place] [address] Dr. Tomasz Patel LIPID PROFILEon 02-11-2022 CHOL-HDL RATIO NORM SEE BELOW Normal [facility] Comment on above: Result Comment: 3.3 - 4.4 LOW RISK 4.4 - 7.1 AVERAGE RISK 7.1 - 11.0 MODERATE RISK >11.0 HIGH RISK Performed By: #### C MP, BNP, HSTROPN #### [facility] [address] [place] [address] Dr. Tomasz Patel Cholesterol [Mass/Vol] 162 mg/dL Normal <=200 [facility] Comment on above: Performed By: #### C MP, BNP, HSTROPN #### [facility] [address] [address] [address] Tomasz Patel Cholesterol in HDL [Mass/Vol] 55 mg/dL Normal 40-60 [facility] Comment on above: Performed By: #### C MP, BNP, HSTROPN #### [facility] [address] [address] [address] Tomasz Patel Cholesterol in LDL [Mass/Vol] 89.6 mg/dL Normal [facility] Comment on above: Performed By: #### C MP, BNP, HSTROPN #### [facility] [address] [address] [address] Tomasz Patel Cholesterol.total/Ch olesterol in HDL [Mass ratio] 2.9 {ratio} Normal [facility] Comment on above: Performed By: #### C MP, BNP, HSTROPN #### [facility] [address] [address] [address] Tomasz Patel HDL NORMAL > or = 60 mg/dl - LO W CARDIOVASCULAR RISK <40 mg/dl - HIGH CARDIOVASCULAR RISK Normal [facility] Comment on above: Performed By: #### C MP, BNP, HSTROPN #### [facility] [address] [address] [address] Tomasz Patel LDL CALC NORMAL SEE BELOW Normal [facility] Comment on above: Result Comment: <100 mg/dl OPTIMAL 100 - 129 mg/dl NEAR OR ABOVE OPTIMAL 130 - 159 mg/dl BORDERLINE HIGH 160 - 189 mg/dl HIGH >190 mg/dl VERY HIGH Performed By: #### C MP, BNP, HSTROPN #### [facility] [address] [address] [address] Tomasz Patel Triglyceride [Mass/Vol] 87 mg/dL Normal <=150 [facility] Comment on above: Performed By: #### C MP, BNP, HSTROPN #### [facility] [address] [address] [address] Tomasz Patel VLDL CALC 17.4 mg/dL Normal [facility] Comment on above: Performed By: #### C MP, BNP, HSTROPN #### [facility] [address] [place] [address] Dr. Tomasz Patel PROF CHEM 8 (BAS METB)on Anion gap [Moles/Vol] 13.0 mmol/L Normal [facility] Comment on above: Performed By: #### C MP, BNP, HSTROPN #### [facility] [address] [place] [address] Dr. Tomasz Patel Calcium [Mass/Vol] 9.2 mg/dL Normal 8.5-10.1 [facility] Comment on above: Performed By: #### C MP, BNP, HSTROPN #### [facility] [address] [place] [address] Dr. Tomasz Patel Chloride [Moles/Vol] 103 mmol/L Normal 98-107 [facility] Comment on above: Performed By: #### C MP, BNP, HSTROPN #### [facility] [address] [place] [address] Dr. Tomasz Patel CO2 [Moles/Vol] 27.2 mmol/L Normal 21.0-32.0 [facility] Comment on above: Performed By: #### C MP, BNP, HSTROPN #### [facility] [address] [place] [address] Dr. Tomasz Patel Creatinine [Mass/Vol] 1.13 mg/dL Normal 0.70-1.30 [facility] Comment on above: Performed By: #### C MP, BNP, HSTROPN #### [facility] [address] [place] [address] Dr. Tomasz Patel EGFR-AF ERITREAN >60 Normal >=60 [facility] Comment on above: Performed By: #### C MP, BNP, HSTROPN #### [facility] [address] [place] [address] Dr. Tomasz Patel EGFR-NON AF ERITREAN >60 Normal >=60 [facility] Comment on above: Performed By: #### C MP, BNP, HSTROPN #### [facility] [address] [place] [address] Dr. Tomasz Patel Glucose [Mass/Vol] 124 mg/dL Critically high 74-106 [facility] Comment on above: Performed By: #### C MP, BNP, HSTROPN #### [facility] [address] [place] [address] Dr. Tomasz Patel Potassium [Moles/Vol] 4.2 mmol/L Normal 3.5-5.1 [facility] Comment on above: Performed By: #### C MP, BNP, HSTROPN #### [facility] [address] [place] [address] Dr. Tomasz Patel Sodium [Moles/Vol] 139 mmol/L Normal 136-145 [facility] Comment on above: Performed By: #### C MP, BNP, HSTROPN #### [facility] [address] [place] [address] Dr. Tomasz Patel Urea nitrogen [Mass/Vol] 24.0 mg/dL Critically high 7.0-18.0 [facility] Comment on above: Performed By: #### C MP, BNP, HSTROPN #### [facility] [address] [place] [address] Dr. Tomasz Patel Urea nitrogen/Creatinine [Mass ratio] 21.2 mg/mg Normal [facility] Comment on above: Performed By: #### C MP, BNP, HSTROPN #### [facility] [address] [place] [address] Dr. Tomasz Patel [facility] 02-11-2022 ALT [Catalytic activity/Vol] 21 U/L Normal 16-63 [facility] Comment on above: Performed By: #### C MP, BNP, HSTROPN #### [facility] [address] [place] [address] Dr. Tomasz Patel COVID-19 Positive/Negativeon 03-26-2020 COVID-19 Positive/Negative Negative Negative [facility] Comment on above: Testing for SARS-CoV -2 by RT-PCRThis test was developed and its performance characteristics determined by [employer]) and validated at the [facility]. This test has not been FDA cleared [...] Otheron 03-26-2020 Coronavirus 2019 PCR Interp N/A [facility] Automated basophil %on 03-12 Basophils/100 WBC (Bld) 0.4 % [facility] Automated basophil counton 1 05-13-2019 Basophils (Bld) [#/Vol] 0.0 10*3/uL 0.0-0.2 [facility] Automated blood lymphocyte c ount (number/volume)on 03-12-2020 Lymphocytes (Bld) [#/Vol] 1.0 10*3/uL 1.00-4.8 [facility] Automated blood lymphocyte c ount as percentage of total leukocyteson 03-12-2020 Lymphocytes/100 WBC (Bld) 16.5 % [facility] Automated blood monocyte cou nton 03-12-2020 Monocytes (Bld) [#/Vol] 0.5 10*3/uL 0.0-0.8 [facility] Automated blood platelet cou nt (count/volume)on 03-12-2020 Platelets (Bld) [#/Vol] 197 10*3/uL 150-450 [facility] Automated blood platelet rose marie n volume measurementon 03-12-2020 Platelet mean volume (Bld) [Entitic vol] 9.1 fL 6.6-10.1 [facility] Automated eosinophil %on Eosinophils/100 WBC (Bld) 0.3 % [facility] Automated eosinophil counton 03-12-2020 Eosinophils (Bld) [#/Vol] 0.0 10*3/uL 0.0-0.45 [facility] Automated erythrocyte distri bution width ratioon 03-12-2020 Erythrocyte distribution width (RBC) [Ratio] 14.4 % 12.0-14.8 [facility] Automated erythrocyte mean c orpuscular hemoglobin (mass per erythrocyte)on 03-12-2020 MCH (RBC) [Entitic mass] 29.6 pg 27.5-35.2 [facility] Automated erythrocyte mean c orpuscular hemoglobin concentration measurement (mass/volon 03-12-2020 MCHC (RBC) [Mass/Vol] 33.5 g/dL 32.5-35.6 [facility] Automated erythrocyte mean c orpuscular volumeon 03-12-2020 MCV (RBC) [Entitic vol] 88.5 fL 83.5-101 [facility] Automated erythrocytes count in urine sediment (number/area)on 03-12-2020 RBC Auto (Urine sed) [#/Area] 1-2 [HPF] [facility] Automated leukocytes count i n urine sediment (number/area)on 03-12-2020 WBC Auto (Urine sed) [#/Area] Innumerable [HPF] [facility] Automated monocyte %on 03-12 Monocytes/100 WBC (Bld) 8.0 % [facility] Automated neutrophil %on Neutrophils/100 WBC (Bld) 74.8 % [facility] Automated urine color determ inationon 03-12-2020 Color (U) Yellow Yellow [facility] Blood erythrocytes automated count (number/volume)on 03-12-2020 RBC (Bld) [#/Vol] 5.23 10*6/uL 3.90-5.60 [facility] Blood hemoglobin measurement (mass/volume)on 03-12-2020 Hemoglobin (Bld) [Mass/Vol] 15.5 g/dL 13.0-17.0 [facility] Blood leukocytes automated c ount (number/volume)on 03-12-2020 WBC (Bld) [#/Vol] 6.3 10*3/uL 4.1-10.5 [facility] Blood neutrophil count by au tomated method (number/volume)on 03-12-2020 Neutrophils (Bld) [#/Vol] 4.7 10*3/uL 1.8-7.7 [facility] Estimated glomerular filtrat ion rate (GFR) non- Americanon 03-12-2020 GFR/1.73 sq M predicted among non-blacks MDRD (S/P/Bld) [Vol rate/Area] mL/min/{1.73_m2} [facility] Hematocrit [Volume Fraction] of Blood by Automated counton 03-12-2020 Hematocrit (Bld) [Volume fraction] 46.3 % 38.8-50.0 [facility] Otheron 03-12-2020 GFR/1.73 sq M.predicted MDRD (S/P/Bld) [Vol rate/Area] mL/min/{1.73_m2} [facility] Comment on above: GFR estimated refere nce range: According to KDOQI guidelines, <60 ml/min/1.73m2 is sufficient to diagnose a patient with chronic kidney disease. Nucleated RBC/100 WBC (Bld) [Ratio] 0.2 % 0-0.5 [facility] Creatinine Clearance (Chem N/A [facility] Serum or plasma calcium fabrizio urement (mass/volume)on 03-12-2020 Calcium [Mass/Vol] 9.3 mg/dL 8.2-10.2 [facility] Serum or plasma chloride rose marie surement (moles/volume)on 03-12-2020 Chloride [Moles/Vol] 103 mmol/L 95-114 [facility] Serum or plasma creatinine m easurement with calculation of estimated glomerular filtron 03-12-2020 Creatinine [Mass/Vol] 1.02 mg/dL 0.64-1.27 [facility] Serum or plasma glucose fabrizio urement (mass/volume)on 03-12-2020 Glucose [Mass/Vol] 107 mg/dL 70-100 [facility] Comment on above: ADA recommended refe rence rangeRandom Glucose Reference Range is dependent on time and content of last meal. Glucose of more than 200 mg/dL in a nonstressed, ambulatory subject supports the diagnosis of Diabetes Mellitus. Serum or plasma potassium me asurement (moles/volume)on 03-12-2020 Potassium [Moles/Vol] 4.3 mmol/L 3.5-5.1 [facility] Serum or plasma sodium measu rement (moles/volume)on 03-12-2020 Sodium [Moles/Vol] 139 mmol/L 136-146 [facility] Serum or plasma total carbon dioxide measurement (moles/volume)on 03-12-2020 CO2 [Moles/Vol] 25.4 mmol/L 22.0-30.0 [facility] Serum or plasma urea nitroge n measurement (mass/volume)on 03-12-2020 Urea nitrogen [Mass/Vol] 22 mg/dL 9-23 [facility] Specific gravity of Urine by Automated test stripon 03-12-2020 Specific gravity (U) [Rel density] 1.025 1.001-1.030 [facility] Squamous epithelial cells de tection in urine sediment by light microscopyon 03-12-2020 Epithelial cells.squamous LM Ql (Urine sed) None seen [HPF] [facility] Urinalysison 03-12-2020 Hyaline casts LM Ql (Urine sed) 0-8 [LPF] [facility] Urine bacteria detection by automated methodon 03-12-2020 Bacteria Auto Ql (U) 4+ None Seen [facility] Urine clarity by refractomet ry automatedon 03-12-2020 Clarity Refractometry automated (U) Cloudy Clear [facility] Urine culture routineon 02-21 Bacteria identified Cx Nom (U) Escherichia coli [facility] Urine glucose measurement by automated test strip (mass/volume)on 03-12-2020 Glucose Auto test strip (U) [Mass/Vol] Normal mg/dL Normal [facility] Urine hemoglobin detection b y automated test stripon 03-12-2020 Hemoglobin Auto test strip Ql (U) Negative Negative [facility] Urine ketones measurement by automated test strip (mass/volume)on 03-12-2020 Ketones (U) [Mass/Vol] Negative Negative [facility] Urine leukocyte esterase det ection by automated test stripon 03-12-2020 Leukocyte esterase Auto test strip Ql (U) 3+ Negative [facility] Urine nitrite detection by t est stripon 03-12-2020 Nitrite Ql (U) Negative Negative [facility] Urine pH measurement by auto mated test stripon 03-12-2020 pH (U) 6.5 [pH] 5.0-9.0 [facility] Urine protein measurement by automated test strip (mass/volume)on 03-12-2020 Protein (U) [Mass/Vol] Trace mg/dL Negative [facility] Urine total bilirubin detect ion by test stripon 03-12-2020 Bilirubin Ql (U) Negative Negative [facility] Urine urobilinogen measureme nt by automated test strip (mass/volume)on 03-12-2020 Urobilinogen (U) [Mass/Vol] Normal mg/dL Normal [facility] CLAVICLE RIGHTon 01-26-2017 CLAVICLE RIGHT [facility] [address] [place] [id number] ========Patient Name: BONIFACIO AMARO : 1950ex: MAge: Race: WhiteMRN: [id number]. Location: Patient Status: Date: 01/26/2017 11:40:00 AMCompleted Date: 01/26/2017 11:45 AMRequesting Provider: RAKAN GILMAN Attending Provider: Report Copy To: Signs & Symptoms: S42.021A Disp fx of shaft of right clavicle, init for clos fx [id number]: AthenaComments: , , , Ordering Provider - RAKAN GILMAN MD , Rendering Provider - RAKAN GILMAN MD , Exam: CLAVICLE RIGHTAccession #: [id number] CLAVICL E RIGHT, HIP LEFT 1 OR 2 VWS WITH PELVIS 01/26/2017 11:45 AM EST SIGNS AND SYMPTOMS: S42.021A Disp fx of shaft of right clavicle, init for clos fx I10 TECHNOLOGIST COMMENTS: Patient complains of right clavicle pain. History of right clavicle surgery 2012. (accession [id number]), Patient c/o lt hip pain (accession [id number]) QUESTION FOR THE RADIOLOGIST: , , , Ordering Provider - RAKAN GILMAN MD , Rendering Provider Jack GILMAN MD , PROTOCOL: AP and Axial views were obtained. (accession [id number]), AP(PA) and Lateral views were obtained. (accession [id number]) FINDINGS: Right shoulder: Healing lateral mid shaft [...] trochanter. Mild osteoporosis and iliac enthesophytes. Right [place] hip shows minor arthritis. IMPRESSION: 1. Healing right clavicle fracture similar to prior study2. 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 Transcribed by: [email or web address], User Resident: Electronically Signed by: JANN US @ 01/26/2017 11:58 AM Normal [facility] Comment on above: Order Comment: , , = ========= , Ordering Provider - RAKAN GILMAN MD , Rendering Provider - RAKAN GILMAN MD , HIP LEFT 1 OR 2 VWS WITH PEL VISon 01-26-2017 HIP LEFT 1 OR 2 VWS WITH PELVIS [facility] [address] [place] [address] ========Patient Name: BONIFACIO AMARO : 1950ex: MAge: Race: WhiteMRN: [id number]. Location: 84Patient Status: Date: 01/26/2017 10:00:00 AMCompleted Date: 01/26/2017 10:01 AMRequesting Provider: CARRILLO LEWIS Attending Provider: Report Copy To: Signs & Symptoms: Z47.1 Aftercare following joint replacement surgery [id number]: AthenaComments: , , Views (X-RAY, HIP): AP Pelvis, X-Table Lateral Hip , Weight Bearing?: Y , With Magnification Marker?: Y , , , Ordering Provider - CARRILLO LEWIS MD , Exam: HIP LEFT 1 OR 2 VWS WITH PELVISAccession #: [id number] CLAVICL E RIGHT, HIP LEFT 1 OR 2 VWS WITH PELVIS 01/26/2017 11:45 AM EST SIGNS AND SYMPTOMS: S42.021A Disp fx of shaft of right clavicle, init for clos fx I10 TECHNOLOGIST COMMENTS: Patient complains of right clavicle pain. History of right clavicle surgery 2012. (accession [id number]), Patient c/o lt hip pain (accession [id number]) QUESTION FOR THE RADIOLOGIST: , , , Ordering Provider - RAKAN GILMAN MD , Rendering Provider - RAKAN GILMAN MD , PROTOCOL: AP and Axial views were obtained. (accession [id number]), AP(PA) and Lateral views were obtained. (accession [id number]) FINDINGS: Right shoulder: Healing lateral mid shaft [...] trochanter. Mild osteoporosis and iliac enthesophytes. Right [place] hip shows minor arthritis. IMPRESSION: 1. Healing right clavicle fracture similar to prior study2. 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 Transcribed by: [email or web address], User Resident: Electronically Signed by: JANN US @ 01/26/2017 11:58 AM Normal [facility] Comment on above: Order Comment: , , V iews (X-RAY, HIP): AP Pelvis, X-Table Lateral Hip , Weight Bearing?: Y , With Magnification Marker?: Y , , , Ordering Provider - CARRILLO LEWIS MD , Vital Signs Date Time Vital Sign Value Performing Clinician Facility 09-29-2023 [id number] Body height 176.53 [facility] 09-29-2023 15:03-0400 Body mass index (BMI) [Ratio] 29.5 kg/m2 [facility] 09-29-2023 15:03-0400 Body weight 92.07 [facility] 09-29-2023 15:03-0400 Diastolic blood pressure 76 mm[Hg] [facility] 09-29-2023 15:03-0400 Heart rate 75 /min [facility] 09-29-2023 15:03-0400 Systolic blood pressure 136 mm[Hg] [facility] 04-20-2023 10:00-0500 Body height 176.53 cm Francisco Javier Camacho Other [facility] Other 04-20-2023 10:00-0500 Body mass index (BMI) [Ratio] 34.35 kg/m2 Francisco Javier Camacho Other [facility] Other 04-20-2023 10:00-0500 Body weight 107.05 kg Francisco Javier Camacho Other [facility] Other 03-24-2023 09:00-0500 Body height 176.53 cm Liz Cormier Other [facility] Other 03-24-2023 09:00-0500 Body mass index (BMI) [Ratio] 34.7 kg/m2 Liz Cormier Other [facility] Other 03-24-2023 09:00-0500 Body weight 108.14 kg Liz Cormier Other [facility] Other 03-24-2023 09:00-0500 Diastolic blood pressure 76 mm[Hg] Liz Cormier Other [facility] Other 03-24-2023 09:00-0500 Systolic blood pressure 144 mm[Hg] Liz Cormier Other [facility] Other 07-04-2022 10:00-0400 Body height 176.53 cm Liz Cormier Other [facility] Other 07-04-2022 10:00-0400 Body mass index (BMI) [Ratio] 35.22 kg/m2 Liz Cormier Other [facility] Other 07-04-2022 10:00-0400 Body weight 109.77 kg Liz Cormier Other [facility] Other 07-04-2022 10:00-0400 Diastolic blood pressure 84 mm[Hg] Liz Cormier Other [facility] Other 07-04-2022 10:00-0400 SaO2% (BldA) [Mass fraction] 97 % Liz Cormier Other [facility] Other 07-04-2022 10:00-0400 Systolic blood pressure 128 mm[Hg] Liz Cormier Other [facility] Other 03-05-2021 11:45-0500 Body height 182.88 cm Lula De L aO Other [facility] Other 03-05-2021 11:45-0500 Body mass index (BMI) [Ratio] 37.56 kg/m2 Lula De La O Other [facility] Other 03-05-2021 11:45-0500 Body weight 125.65 kg Lula De La O Other [facility] Other 03-05-2021 11:45-0500 Respiratory rate 18 /min Lula De La O Other [facility] Other 03-05-2021 11:45-0500 SaO2% (BldA) [Mass fraction] 98 % Lula De La O Other [facility] Other Encounters Encounter Date Encounter Type Care Provider Facility Start: 09-29-2023 End: 09-29-2023 ambulatory [facility] Work Phone: Start: 09-29-2023 End: 09-29-2023 Patient encounter procedure [facility] Work Phone: Start: 09-28-2023 End: 09-28-2023 ambulatory [facility] Start: 04-20-2023 End: 04-20-2023 ambulatory Francisco Javier Camacho Other [facility] Other Start: 04-20-2023 Office outpatient vi sit 25 minutes Francisco Javier Camacho [facility] Start: 04-20-2023 Telephone encounter Liz Cormier [facility] Start: 04-15-2023 End: 04-15-2023 ambulatory Liz Cormier Other [facility] Other Start: 04-15-2023 Telephone encounter Liz Cormier [facility] Start: 04-07-2023 End: 04-07-2023 ambulatory Liz Cormier Other [facility] Other Start: 04-07-2023 Telephone encounter Liz Cormier [facility] 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 Start: 04-06-2023 Office outpatient ne w 45 minutes Francisco Javier Camacho [facility] Start: 04-06-2023 End: 04-06-2023 ambulatory Liz Cormier Facility:[facility] Start: 04-06-2023 End: 04-06-2023 ambulatory MD Liz Cormier Work Phone: [facility] Other Start: 04-06-2023 End: 04-06-2023 Patient encounter procedure MD Liz Cormier Work Phone: [facility] Start: 03-30-2023 End: 03-30-2023 ambulatory MADIE ZUNIGA [facility] Start: 03-25-2023 End: 03-25-2023 ambulatory Liz Cormier Other [facility] Other Start: 03-25-2023 Telephone encounter Liz Cormier [facility] Start: 03-24-2023 End: 03-24-2023 ambulatory Liz Cormier Other [facility] Other Start: 03-24-2023 Office outpatient vi sit 15 minutes Liz Cormier [facility] Start: 02-16-2023 End: 02-16-2023 ambulatory Liz Cormier Other [facility] Other Start: 02-16-2023 Telephone encounter Liz Cormier [facility] Start: 02-09-2023 End: 02-09-2023 ambulatory Liz Cormier Other [facility] Other Start: 02-09-2023 Telephone encounter Liz Cormier [facility] Start: 07-15-2022 End: 07-15-2022 ambulatory Liz Cormier Other [facility] Other Start: 07-15-2022 Telephone encounter Liz Cormier [facility] Start: 07-11-2022 End: 07-12-[address] LIZ CORMIER Facility:[facility] Start: 07-04-2022 End: 07-04-2022 ambulatory Liz Cormier Other [facility] Other Start: 07-04-2022 Transitional care corazon brantley sr 14 day discharge Liz Cormier [facility] Start: 07-01-2022 End: 07-01-2022 ambulatory Liz Cormier Other [facility] Other Start: 07-01-2022 Telephone encounter Liz Cormier [facility] Start: 06-27-2022 End: 06-28-2022 Evaluation and management of inpatient DR LIZ CORMIER Facility:[facility] Start: 06-26-[address] LIZ CORMIER Facil ity:[facility] Start: 03-18-2022 End: 03-19-[address] DOCTOR MIXNO Facility:[facility] Start: 02-11-2022 End: 02-12-[address] JAVI BALLESTEROS Facility:[facility] Start: 02-10-2022 Adult health examination Jeannie Cormier Other [facility] Other Start: 03-05-2021 End: 03-05-2021 ambulatory Lula De La O Other [facility] Other Start: 03-05-2021 Office outpatient vi sit 15 minutes [facility] Start: 2020 Pre-procedure evalua tion check Liz Cormier Other [facility] Other Start: 03-26-2020 End: 03-26-2020 Patient encounter procedure Felipe Hancock -Pre-Surgical Testing Start: 03-21-2020 Registered Recurring Felipe Hancock -P hysical Therapy [facility] [place] Start: 03-12-2020 End: 03-12-2020 Patient encounter procedure Felipe Hancock -Pre-Surgical Testing Start: 02-15-2020 End: 02-15-2020 Patient encounter procedure Felipe Hancock [facility] Start: 01-26-2017 End: 01-27-2017 Ambulatory [facility] Facility:[facility] Procedures Date Procedure Procedure Detail Performing Clinician Start: 04-06-2023 Plain X-ray of left shoulder MD Liz Cormier Work Phone: Start: 02-11-[address] LIZ CORMIER Comment on above: Performed By: #### [facility] #### [facility] [address] [place] [address] Dr. Tomasz Patel Start: 03-12-2020 Bacteria identified Cx Nom (U) Felipe Hancock Start: 03-12-2020 Urine culture Felipe richter Start: 02-15-2020 XR hip RT 2V Felipe [...] Immunizations Immunization Date Immunization Notes Care Provider Osmin guajardo 01-11-2019 pneumococcal conjuga te vaccine, 13 valent Liz Cormier Other [facility] 01-06-2017 pneumococcal conjuga te vaccine, 13 richie Hill Casa Other [facility] Payers Date Payer Category Payer Self-pay [id number] 1958 Medicare [id number] 1958 Unknown [id number] 1950 Unknown [id number] 2.16.84 [id number] 1950 Unknown [id number] 2.16.84 [id number] 1950 Unknown [id number] 2.16.84 [id number] 1950 Unknown [id number] 2.16.84 [id number] Medicare [id number] Unknown [id number] [id number] Social History Date Type Detail Facility Start: 03-12-2020 End: 03-27-2020 Tobacco smoking status NHIS Ex-smoker (finding) [facility] Start: 1950 Sex Assigned At Male F [facility] Sex Assigned At Sex Assigned At Bir th [place] [employer] Other Medical Equipment Procedure Code Equipment Code Equipment Origin al Text Equipment Identifier Dates Arthroplasty, hip, total, anterior approach Coated hip femur prosthesis, modular [id number] FDA Start: 03-27-2020 Arthroplasty, hip, total, anterior approach Acetabular shell ()[id number] FDA Start: 03-27-2020 Arthroplasty, hip, total, anterior approach Orthopaedic bone screw, non-bioabsorbable, sterile [id number] FDA Start: 03-27-2020 Arthroplasty, hip, total, anterior approach Non-constrained polyethylene acetabular liner ()[id number] FDA Start: 03-27-2020 Arthroplasty, hip, total, anterior approach Acetabular shell [id number] FDA Start: 03-27-2020 Goals Date Patient Goal Desired Activity /State Clinical Notes 03-05-2021 to 09-28-2023 Note Date & Type Note Facility 09-28-2023 Note [facility] Cardiology Clinic Note Chief Complaint: Patient here for 6 mo follow up CAD, hypertension, and hyperlipidemia. No labs or imaging since last apt in Mar 2023. Denies chest pain, palpitations, and lightheadedness/syncope. Says he has GRAYSON, especially with the heat. HPI: Bonifacio Amaro is a 73 y.o. male Patient here for 1 year follow up [...] a heart standpoint he is feeling well. Cardiology ROS: Review of Systems Cardiovascular: Positive [...] Allergies Patient has no known allergies. Medications Current Outpatient Medications: aspirin 81 mg chewable tablet, in the morning., Disp: , Rfl: ergocalciferol (Vitamin D-2) 1.25 MG (74480 Units) capsule, ergocalciferol (vitamin D2) 1,250 mcg (50,000 unit) capsule, Disp: , Rfl: lisinopril 20 mg tablet, Take 1 tablet (20 mg) by mouth in the morning., Disp: 30 tablet, Rfl: 11 lovastatin (Mevacor) 40 mg tablet, Take 40 mg by mouth at bedtime., Disp: , Rfl: metoprolol tartrate (Lopressor) 25 mg tablet, Take 25 mg by mouth in the morning and at bedtime., Disp: , Rfl: nitroglycerin (Nitrostat) 0.4 mg SL tablet, nitroglycerin 0.4 mg sublingual tablet, Disp: , Rfl: Last Recorded Vitals BP 108/72 (BP Location: Left arm, Patient Position: Sitting) Pulse 70 Ht 1.829 m (6') Wt 104 kg (230 lb) SpO2 98% BMI 31.19 kg/m??? Physical Examination: GENERAL: alert and oriented x3, well developed, in no acute distress. HEAD: atraumatic, normocephalic. EYES: SIMONA, EOMI. NECK: trachea midline, no JVD present, no carotid bruits present. CARDIAC: S1, S2 present. RRR. No murmur, rubs, or gallops. RESPIRATORY: CTAB, no increased effort of breathing, no rales, rhonchi, or wheezing. ABDOMEN: soft, nontender, nondistended. EXTREMITIES: no lower extremity edema, peripheral pulses are 2+ bilaterally. No rash/skin discoloration present. NEURO: strength/sensation equal and symmetric in bilateral upper and lower extremities. PSYCH: appropriate mood, affect, and judgement. Labs: 02/16/23 CBC normal BUN 22, CR 0.98 normal LFT normal Chol 161, Trig 64, LDL 91, HDL 58 Last lab values have been reviewed CV Testing: Cardiovascular Laboratory Report FINAL IMPRESSION: 1. Successful balloon angioplasty and bare-metal stent placement in the left circumflex coronary artery. 2. Minimal in-stent restenosis in the right coronary artery. 3. Normal global left ventricular systolic function. 4. Normal left-sided heart pressures and left ventricular end-diastolic pressure. RECOMMENDATIONS: 1. Aspirin 325 mg daily for a minimum of a month followed by 81 mg lifelong. 2. Plavix 75 mg daily for a minimum of a month if not longer. 3. Consult [place]-showcase maker for Plavix assistance given the patient's lack of medical insurance. 4. Phase-II cardiac rehabilitation as an outpatient if feasible. 5. Follow up with me as an outpatient in a month. 6. Follow up with Dr. Cormier as an outpatient as scheduled. PROCEDURE: Left heart catheterization, left ventriculography, percutaneous balloon angioplasty and bare-metal stent placement in the left circumflex coronary artery, limited femoral angiography, and placement of an Angio-Seal closure device Stress test 03/31/2022: No ischemia, preserved ejection fraction Echocardiogram 03/26/2022: No significant abnormalities Labs 02/16/2023: Triglycerides 64, total cholesterol 161, LDL 91, HDL 58 Assessment: Atherosclerosis of [place] coronary artery of [place] heart with stable angina pectoris (CMS/HCC) h/o BMS Lcx, RCA Essential hypertension Dyslipidemia Dyspnea on exertion Electrocardiogram abnormal Plan: Continue medical therapy for coronary artery disease including aspirin, statin, beta-kirk Given elevated LDL, will add Zetia 10 mg a day Repeat fasting lipid profile and liver function tests in 2 months consider switching Mevacor to Crestor or Lipitor or addition of a PCSK9 inh (more content not included)... [facility] 04-20-2023 Evaluation note Encounter Date Diagnosis Assessment Notes Mar, Traumatic complete tear of left rotator cuff, initial encounter (ICD-10 - S46.012A) Mar, Primary osteoarthritis of left shoulder (ICD-10 - M19.012) Discussed MRI results with the patient, however the images were not great due to the patient moving during the process. Likely etiologies of the patient's symptoms were discussed. Patient is suffering from left shoulder osteoarthritis. The MRI may show a rotator cuff tear although it was difficult to asses due to the poor image quality. He is not having any pain and is concerned with his limited range of motion. At this point we will pursue conservative management in the form of formal physical therapy. Therapy prescription given to the patient. Patient will follow-up on an as needed basis or in 8 weeks if he is not seeing improvements. Mar, Internal derangement of left shoulder (ICD-10 - M24.812) Mar, Acute pain of left shoulder (ICD-10 - M25.512) [facility] Other 01-15-2024 Evaluation note* Encounter Date Diagnosis Assessment Notes Treatment Notes Treatment Clinical Notes Mar, Internal derangement of left shoulder [...] pain of left shoulder (ICD-10 - M25.512) [facility] Other 01-08-2024 NoteContinue [facility]Un[facility]2024 NoteHypertension is well controlled 138/78 Continue lisinopril, metoprololUnPike [facility] Hospital01-08-2024 NoteUTP CARDIOLOGY PROGRESS NOTE HPI: Bonifacio Amaro [...] sublingual tablet ergocalciferol (Vitamin D-2) 1.25 MG (90845 Units) capsule ergocalciferol (vitamin D2) 1,250 mcg [...] to Dr Husain's office for lt shoulder injuryUnPike [facility] Hospital01-08-2024 NotePatient here for 1 year follow up CAD and hypertension. Had routine labs in Jan 2023. He denies chest pain and change in G[place]. Fell and injured his left shoulder recently. States fall was not due to lightheadedness/syncope. Review of Systems Cardiovascular: Positive for dyspnea on exertion. Musculoskeletal: Positive for arthritis and joint pain. All other systems reviewed and are negative.[facility] 03-25-2023 Evaluation note* Encounter Date Diagnosis Assessment Notes Treatment Notes Treatment Clinical Notes Mar, Closed fracture of head of left humerus, initial encounter (ICD-10 - S42.292A) [facility] [employer] Other 01-02-2024 Evaluation note* Encounter Date Diagnosis Assessment Notes Treatment Notes Treatment Clinical Notes Mar, Injury of left shoulder, initial encounter (ICD-10 - S49.92XA) Check xray, PT order printed. Discussed ortho referral to [facility] if warranted. take tylenol prn pain due to his cardiac history [facility] [employer] Other 11-20-2023 Evaluation note* Encounter Date Diagnosis Assessment Notes Treatment Notes Treatment Clinical Notes Jan, Primary hypertension (ICD-10 - I10) Jan, Hypercholesterolemia (ICD-10 - E78.00) Jan, ASHD (arteriosclerot ic heart disease) (ICD-10 - I25.10) [facility] [employer] Other 04-14-2023 Evaluation note* Encounter Date Diagnosis [...] labs on 07/11. Finish levaquin as prescribed. [facility] Other [id number] NoteCARDIAC STRESS TEST Requesting Physician: Ximena Croft [...] portion to be dictated by Radiology separately.[id number]* Encounter Date Diagnosis Assessment Notes Treatment Notes Treatment Clinical Notes Feb, History of total right hip arthroplasty (ICD-10 - Z96.641) Patient is progressing well from surgery. We discussed the importance of continuing to work on range of motion and strength exercise. Call with any concerns or questions. Feb, Primary osteoarthritis of right hip (ICD-10 - M16.11) [facility] Other Evaluation noteNo InformationNort [employer] Other Evaluation noteNo assessment information available [facility] Work Phone: [facility] Narrative - Reported* Type Description Date Medical History CARDIAC ISSUES Surgical History 2 CARDIAC STENTS Surgical History LTHA 2014 Surgical History RTHA 2020 Hospitalization History SEE ABOVE [facility] Other [facility] Narrative - Reported* Type Description Date Medical History CARDIAC ISSUES Surgical History 2 CARDIAC STENTS Surgical History LTHA 2014 Surgical History RTHA 2020 Surgical History ANTERIOR SUPINE TOTAL RIGHT HIP ARTHROPLASTY Hospitalization History SEE ABOVE [facility] Other [facility] Narrative - Reported* Type Description Date Medical History CARDIAC ISSUES Medical History Benign prostatic hyp erplasia with lower urinary tract symptoms Medical History Hypercholesterolemia Medical History Essential hypertension Medical History ASHD (arteriosclerotic heart dis ease) Surgical History 2 CARDIAC STENTS Surgical History LTHA 2014 Surgical History RTHA 2020 Surgical History ANTERIOR SUPINE TOTAL RIGHT HIP ARTHROPLASTY Hospitalization History SEE ABOVE Hospitalization History [facility] 06/26/22 [facility] Other Summary Purpose Family History No Family History Records Found Relationship Condition Age at Onset Recorded Date/T cha father Myocardial infarction Unknown Not Specified Hypertension Unknown Cerebrovascular accident (CVA) Unknown Relationship Condition Age at Onset Recorded Date/T cha father Myocardial infarction Unknown mother Hypertension Unknown Cerebrovascular accident (CVA) Unknown father Heart disease Unknown Unknown mother Unknown Advance Directives No Advanced Directives Records Found Advance Directive Response Recorded Date/ Time Advance Directives No January 6:31pm Advance Directive Response Recorded Date/ Time Advance Directives No January 7:31pm Chief Complaint and Reason for Visit Chief Complaint M25.551 Hip pain Chief Complaint M25.551 Hip pain Right ADILENE/pre-op Hip pain Chief Complaint pulled muscle Assessments No Assessments Information AvailableNo Assessments Information Available Reason for Referral Reason *Waiting for appt Possible L humeral head fracture - Xray in chart. Diagnosis 1 Closed fracture of h ead of left humerus, initial encounter (S42.292A) Referral Organization [facility] Referring Provider First Name Liz Referring Provider Last Name Casa Referring Provider Specialty Family [facility] Referred Organization [facility] Referred Provider Francisco Javier Camacho Referred Address [address] [place], [place],[address] Referred Provider Specialty Orthopedic S urgery Referral Priority Routine General Notes Roberta Mckenzie 07:41:51 PM >received today, referral faxed P2P Additional Source Comments (unrecognized sect ion and content) No Status Records FoundNo Status Records FoundNo Status Records FoundNo Status Records Found INFORMATION SOURCE (unrecogn ized section and content) DATE CREATED AUTHOR 09/15/2017 [facility] DATE CREATED AUTHOR AUTHOR'S ORGANIZ ATION 07/17/2022 [facility] DATE CREATED AUTHOR AUTHOR'S ORGANIZ ATION 04/11/2023 [facility] DATE CREATED AUTHOR AUTHOR'S ORGANIZ ATION 10/05/2023 [facility] REASON FOR VISIT (unrecogniz ed section and content) Recheck RTHATCMTBHlabsRefill labsShoulderpossible fractureLeft Shoulder PainORTHO CONSULT NOTEMRIUpdateLeft Shoulder MRI Results Care Teams (unrecognized sec tion and content) Team Status: Active Member Role Status Dates Liz Cormier MD Primary Care Provider Active Team Status: Inactive Member Role Status Dates Liz Cormier MD Primary Care Provider Active Francisco Javier Camacho DO Attending Provider Active Team Status: Inactive Member Role Status Dates Liz Cormier MD Primary Care Provide r, Attending Provider Active Start: September 29, 2023 End: September 29, 2023 Goals (unrecognized section and content) Goals may [...] BE BASED ON THE PRIMARY CLINICAL RECORDS. [facility]. provides no warranty or guarantee of the accuracy or completeness of information in this document.
[2024-09-09 09:39] LABS: Basophils Percent Auto 0.3 % (0.2-2.0); Eosinophils Percent Auto 0.2 % (0.9-7.0); Hematocrit 43.4 % (42.0-54.0); Hemoglobin 14.5 g/dL (14.0-18.0); Immature Granulocytes Abs Auto 0.02 10^3/uL (0.00-0.03); Immature Granulocytes Pct Auto 0.3 % (0.0-0.5); Lymphocytes Absolute Auto 0.9 10^3/uL (1.2-3.8); Lymphocytes Percent Auto 14.5 % (20.5-60.0); Mean Corpuscular HGB Conc 33.4 g/dL (29.9-35.2); Mean Corpuscular Hemoglobin 29.8 pg (25.9-34.0); Mean Corpuscular Volume 89.3 fL (80.0-94.0); Mean Platelet Volume 10.3 fL (9.5-13.5); Monocytes Absolute Auto 0.5 10^3/uL (0.3-0.8); Monocytes Percent Auto 7.7 % (1.7-12.0); Neutrophils Absolute Auto 4.6 10^3/uL (1.4-6.5); Platelet Count 173 10^3/uL (150-450); Red Blood Count 4.86 10^6/uL (4.70-6.10); Red Cell Distribution Width 13.2 % (11.0-15.0)
[2024-09-09 09:42] LABS: Creatinine Urine Random 221.64 mg/dL (20.00-300.00); Microalbum Creatinine Ratio Ur 37.8 mg/g (0.0-29.9); Microalbumin Urine Random 8.4 mg/dL (<=30.0)
[2024-09-09 09:58] LABS: Alanine Aminotransferase 27 U/L (16-63); Albumin Globulin Ratio 0.9; Albumin Level 3.4 g/dL (3.4-5.0); Alkaline Phosphatase 77 U/L (46-116); Anion Gap 12.9; Aspartate Amino Transferase 19 U/L (15-37); BUN Creatinine Ratio 21.1; Bilirubin Total 0.7 mg/dL (0.2-1.0); Carbon Dioxide 26.2 mmol/L (21.0-32.0); Chloride 105 mmol/L (98-107); Cholesterol 132 mg/dL (<=200); Estimated GFR (African America >60 (>=60 mL/min/1.73m^2); Estimated GFR (Non-African Ame >60 (>=60 mL/min/1.73m^2); Globulin 3.8 g/dL; Glucose 141 mg/dL (74-106); HDL Cholesterol 65 mg/dL (40-60); Potassium 4.1 mmol/L (3.5-5.1); Sodium 140 mmol/L (136-145); Total Protein 7.2 g/dL (6.4-8.2); Triglycerides 64 mg/dL (<=150); VLDL CHOLESTEROL 12.8 mg/dL
== END 2024-09-09 09:12 | disposition home or self-care (01) ==
LOC: LAB 09:14
PROVIDERS: PCP Family Medicine; Visit Provider Family Medicine
DX: Z00.00 Encounter for general adult medical examination without abnormal findings (principal); I25.10 Atherosclerotic heart disease of native coronary artery without angina pectoris; E78.5 Hyperlipidemia, unspecified; I10 Essential (primary) hypertension
CPT/HCPCS: 36415; 80053; 80061; 82043; 82570; 85025